=== PATIENT | male | born 1960 | race Caucasian/White ===

== ENCOUNTER 2017-10-27 14:14 | Inpatient (IN) | payer MEDICAID ==
[~2017-10-27] VITALS: Ht 170.2 cm; Wt 55.9 kg
[~2017-10-27 14:14] MED LIST: BUPR100T13; INSU100V9; METF500T4; SYRI1DIS90; [UNRECOGNIZED DRUG - REMARK]
[2017-10-27] MEDS ORDERED: HYDROcodone/acetaminophen 5mg/325mg tablet PO ONE (14:20)
[2017-10-27 15:08] LABS: BASOPHILS % (AUTO) 0.3 % (0-1); EOSINOPHILS # (AUTO) 0.2 X10'3 (0-0.9); EOSINOPHILS % (AUTO) 1.5 % (0-6); HEMATOCRIT 34.2 % (42.0-52.0); HEMOGLOBIN 11.9 g/dl (14.0-17.9); LYMPHOCYTES # (AUTO) 2.1 X10'3 (1.1-4.8); LYMPHOCYTES % (AUTO) 20.5 % (21-51); MEAN CORPUSCULAR HEMOGLOBIN 30.7 PG (27.0-31.0); MEAN CORPUSCULAR HGB CONC 34.6 % (33.0-36.5); MEAN CORPUSCULAR VOLUME 88.6 FL (78-98); MEAN PLATELET VOLUME 7.3 FL (7.4-10.4); MONOCYTES # (AUTO) 0.8 X10'3 (0-0.9); MONOCYTES % (AUTO) 8.2 % (2-12); NEUTROPHILS % (AUTO) 69.5 % (42-75); PLATELET COUNT 224 X10'3 (140-440); RED BLOOD COUNT 3.87 X10'6 (4.70-6.10); RED CELL DISTRIBUTION WIDTH 13.7 % (11.5-14.5)
[2017-10-27 15:24] LABS: ALANINE AMINOTRANSFERASE 28 U/L (12-78); ALBUMIN 3.9 G/DL (3.4-5.0); ALBUMIN/GLOBULIN RATIO 0.8 (1.1-1.5); ALKALINE PHOSPHATASE 68 IU/L (46-116); ANION GAP 17 (8-16); ASPARTATE AMINO TRANSFERASE 26 U/L (10-37); BLOOD UREA NITROGEN 38 MG/DL (7-18); BUN/CREATININE RATIO 20.4 (5.4-32.0); CALCIUM 9.2 MG/DL (8.5-10.1); CHLORIDE 94 MMOL/L (99-107); CREATININE 1.86 MG/DL (0.60-1.10); GLUCOSE 222 MG/DL (70-104); POTASSIUM 4.4 MMOL/L (3.5-5.1); SODIUM 134 MMOL/L (135-145); TOTAL CARBON DIOXIDE 23.5 MMOL/L (24-32); TOTAL PROTEIN 8.7 G/DL (6.4-8.2); eGFR 37 ML/MIN
[2017-10-27] MEDS ORDERED: bisacodyl 10mg suppository rectal RC PRN (16:00)
[2017-10-27] MEDS ORDERED: morphine sulfate 8 MG/ML SYRINGE IV PRN (16:00)
[2017-10-27] MEDS ORDERED: potassium Cl 20 mEq SR tablet PO PRN ×2 (16:00)
[2017-10-27] MEDS ORDERED: HYDROcodone/acetaminophen 5mg/325mg tablet PO PRN (16:00)
[2017-10-27] MEDS ORDERED: acetaminophen 325mg tablet PO PRN (16:00)
[2017-10-27] MEDS ORDERED: potassium Cl 40MEQ/NS 500ml 500 ML IV PRN ×2 (16:00)
[2017-10-27] MEDS ORDERED: magnesium Cl slow-release 64mg tablet PO PRN (16:00)
[2017-10-27] MEDS ORDERED: magnesium 2GM in 50ml NS 50 ML IV PRN (16:00)
[2017-10-27] MEDS ORDERED: magnesium 4gm in 100ml NS 100 ML IV PRN (16:00)
[2017-10-27] MEDS ORDERED: magnesium hydroxide 30ml (MOM) UD suspension PO PRN (16:00)
[2017-10-27] MEDS ORDERED: mag hydrox/Alum hydrox/simeth 30ml oral suspension PO PRN (16:00)
[2017-10-27] MEDS ORDERED: dextrose ORAL solution 15 GM/59 ML bottle PO PRN ×2 (16:05)
[2017-10-27] MEDS ORDERED: dextrose 50%-water 50ml dispensing syringe IV PRN ×2 (16:05)
[2017-10-27] MEDS ORDERED: glucagon, human recombinant 1mg kit SUBCUT PRN (16:05)
[2017-10-27] MEDS ORDERED: MESSAGE TO PHARMACY PO ONE (16:05)
[2017-10-27 16:33] LABS: HEMOGLOBIN A1C 6.2 % (4.5-6.2)
[2017-10-27] MEDS: normal saline 1000ml 1,000 ML IV SCH (19:41)
[2017-10-27] MEDS: docusate sod 100mg capsule PO SCH (19:42)
[2017-10-27 20:00] VITALS: BP_SYST 107; BP_SYST 146; BP_SYST 85; BP_DIAS 47; BP_DIAS 62; BP_DIAS 88
[2017-10-27] MEDS ORDERED: Insulin Detemir pen SQ SCH (21:00)
[2017-10-27] MEDS ORDERED: insulin glargine (Lantus) pen - multi-dose SQ SCH (21:17)
[2017-10-27] MEDS: HYDROcodone/acetaminophen 10/325mg tab PO PRN (21:31)
[2017-10-27] MEDS: insulin glargine (Lantus) pen - multi-dose SQ SCH (21:36)
[2017-10-27 22:00] VITALS: BP 146/88
[2017-10-28] MEDS: normal saline 1000ml 1,000 ML IV SCH ×2 (02:00→05:12)
[2017-10-28 04:33] LABS: CLARITY,URINE Clear (Clear); COLOR,URINE Yellow (Yellow); GLUCOSE, URINE 250 mg/dl (Neg); KETONES,URINE Trace mg/dl (Neg); LEUKOCYTE ESTERASE ,URINE Negative (Neg); NITRITES, URINE Negative (Neg); OCCULT BLOOD,URINE Negative (Neg); PROTEIN,URINE 30 mg/dl (Neg)
[2017-10-28 05:01] LABS: UA COLLECTION TYPE NON-SPECIFIED
[2017-10-28 05:03] LABS: BACTERIA,URINE NONE SEEN /HPF (Neg); HYALINE CASTS 0-3 /LPF (NEGATIVE); MUCUS STRANDS NONE SEEN /LPF (Neg); RBC,URINE NONE SEEN /HPF (0-2); SQUAMOUS EPITHELIAL CELL,UR FEW /LPF (FEW); WBC,URINE NONE SEEN /HPF (0-4)
[2017-10-28 06:07] LABS: BASOPHILS % (AUTO) 0.3 % (0-1); EOSINOPHILS # (AUTO) 0.2 X10'3 (0-0.9); EOSINOPHILS % (AUTO) 2.7 % (0-6); HEMATOCRIT 30.2 % (42.0-52.0); HEMOGLOBIN 10.5 g/dl (14.0-17.9); LYMPHOCYTES # (AUTO) 2.9 X10'3 (1.1-4.8); LYMPHOCYTES % (AUTO) 42.3 % (21-51); MEAN CORPUSCULAR HEMOGLOBIN 30.7 PG (27.0-31.0); MEAN CORPUSCULAR HGB CONC 34.9 % (33.0-36.5); MEAN CORPUSCULAR VOLUME 88.1 FL (78-98); MEAN PLATELET VOLUME 7.2 FL (7.4-10.4); MONOCYTES # (AUTO) 0.6 X10'3 (0-0.9); MONOCYTES % (AUTO) 8.8 % (2-12); NEUTROPHILS # (AUTO) 3.1 X10'3 (1.8-7.7); NEUTROPHILS % (AUTO) 45.9 % (42-75); PLATELET COUNT 148 X10'3 (140-440); RED BLOOD COUNT 3.43 X10'6 (4.70-6.10); WHITE BLOOD COUNT 6.8 X10'3 (4.5-11.0)
[2017-10-28 06:17] LABS: ALBUMIN 3.2 G/DL (3.4-5.0); ANION GAP 9 (8-16); BLOOD UREA NITROGEN 36 MG/DL (7-18); CALCIUM 8.4 MG/DL (8.5-10.1); CHLORIDE 100 MMOL/L (99-107); CREATININE 1.24 MG/DL (0.60-1.10); GLUCOSE 117 MG/DL (70-104); MAGNESIUM 1.5 MG/DL (1.5-2.4); POTASSIUM 3.8 MMOL/L (3.5-5.1); SODIUM 136 MMOL/L (135-145); TOTAL CARBON DIOXIDE 26.9 MMOL/L (24-32); eGFR 60 ML/MIN
[2017-10-28] MEDS ORDERED: METF500T7 PO ×2 (07:44→12:53)
[2017-10-28] MEDS ORDERED: GABA-530 PO (07:44)
[2017-10-28] MEDS ORDERED: ALBU18HF2 INH (07:44)
[2017-10-28 08:00] VITALS: BP_SYST 100; BP_SYST 105; BP_SYST 134; BP_DIAS 64; BP_DIAS 66; BP_DIAS 72
[2017-10-28] MEDS: docusate sod 100mg capsule PO SCH ×2 (08:00→20:34)
[2017-10-28] MEDS: K and/or MAG REPLACEMENT MC SCH (08:00)
[2017-10-28] MEDS: HYDROcodone/acetaminophen 10/325mg tab PO PRN ×2 (08:01→16:04)
[2017-10-28] MEDS: nicotine 21mg patch - 24 hr TD SCH (08:05)
[2017-10-28 10:00] VITALS: BP 117/68
[2017-10-28] MEDS: insulin Lispro (HumaLOG) vial - multi-dose SQ SCH ×2 (16:52→19:03)
[2017-10-28 18:00] VITALS: BP 140/85
[2017-10-28] MEDS: morphine sulfate 8 MG/ML SYRINGE IV PRN (19:09)
[2017-10-28 20:00] VITALS: BP_SYST 140; BP_SYST 144; BP_SYST 88; BP_DIAS 56; BP_DIAS 83; BP_DIAS 84
[2017-10-28] MEDS: gabapentin 100mg capsule PO SCH (20:34)
[2017-10-28] MEDS: insulin glargine (Lantus) pen - multi-dose SQ SCH (21:00)
[2017-10-28 22:00] VITALS: BP 144/84
[2017-10-29] VITALS (18 sets, daily range): BP systolic 67–161; BP diastolic 42–89
[2017-10-29] MEDS: HYDROcodone/acetaminophen 10/325mg tab PO PRN ×3 (06:00→21:10)
[2017-10-29 06:43] LABS: BASOPHILS % (AUTO) 0.4 % (0-1); EOSINOPHILS # (AUTO) 0.2 X10'3 (0-0.9); EOSINOPHILS % (AUTO) 3.2 % (0-6); HEMATOCRIT 30.9 % (42.0-52.0); HEMOGLOBIN 10.6 g/dl (14.0-17.9); LYMPHOCYTES # (AUTO) 2.2 X10'3 (1.1-4.8); LYMPHOCYTES % (AUTO) 33.6 % (21-51); MEAN CORPUSCULAR HEMOGLOBIN 30.2 PG (27.0-31.0); MEAN CORPUSCULAR HGB CONC 34.4 % (33.0-36.5); MEAN CORPUSCULAR VOLUME 87.8 FL (78-98); MEAN PLATELET VOLUME 6.7 FL (7.4-10.4); MONOCYTES # (AUTO) 0.6 X10'3 (0-0.9); MONOCYTES % (AUTO) 9.2 % (2-12); NEUTROPHILS # (AUTO) 3.5 X10'3 (1.8-7.7); NEUTROPHILS % (AUTO) 53.6 % (42-75); PLATELET COUNT 169 X10'3 (140-440); RED BLOOD COUNT 3.52 X10'6 (4.70-6.10); RED CELL DISTRIBUTION WIDTH 13.4 % (11.5-14.5); WHITE BLOOD COUNT 6.6 X10'3 (4.5-11.0)
[2017-10-29] MEDS: gabapentin 100mg capsule PO SCH ×3 (07:00→21:11)
[2017-10-29 07:01] LABS: ALBUMIN 3.2 G/DL (3.4-5.0); ANION GAP 7 (8-16); BLOOD UREA NITROGEN 26 MG/DL (7-18); BUN/CREATININE RATIO 24.8 (5.4-32.0); CALCIUM 8.9 MG/DL (8.5-10.1); CHLORIDE 99 MMOL/L (99-107); CREATININE 1.05 MG/DL (0.60-1.10); GLUCOSE 198 MG/DL (70-104); MAGNESIUM 1.5 MG/DL (1.5-2.4); POTASSIUM 3.8 MMOL/L (3.5-5.1); SODIUM 135 MMOL/L (135-145); TOTAL CARBON DIOXIDE 28.8 MMOL/L (24-32); eGFR 72 ML/MIN
[2017-10-29] MEDS: nicotine 21mg patch - 24 hr TD SCH (07:01)
[2017-10-29] MEDS: morphine sulfate 8 MG/ML SYRINGE IV PRN (07:02)
[2017-10-29] MEDS: insulin Lispro (HumaLOG) vial - multi-dose SQ SCH ×2 (07:47→19:45)
[2017-10-29] MEDS ORDERED: ceFAZolin 1GM/D5W- ADD-VANTAGE 50 ML IV SCH (08:00)
[2017-10-29] MEDS: K and/or MAG REPLACEMENT MC SCH (08:00)
[2017-10-29] MEDS ORDERED: cefazolin/dext.iso 2gm/50ml 50 ML IV ONE (08:00)
[2017-10-29] MEDS: docusate sod 100mg capsule PO SCH ×2 (10:31→21:10)
[2017-10-29] MEDS ORDERED: BUPIVAcaine/PF 2.5 mg/ml (0.25%) 30ml vial ONE (13:13)
[2017-10-29] MEDS ORDERED: BUPIVAcaine 0.5% inj/PF 30 ml vial ONE (13:13)
[2017-10-29] MEDS ORDERED: fentaNYL/PF 50MCG/1 ML 2ML syringe ONE ×2 (13:17→15:06)
[2017-10-29] MEDS ORDERED: midazolam 2 mg/2 ml injection ONE ×2 (13:17)
[2017-10-29] MEDS ORDERED: ePHEDrine 50MG/ML INJ. ONE (13:18)
[2017-10-29] MEDS ORDERED: sevoflurane 250ml liquid IH ONE (13:18)
[2017-10-29] MEDS ORDERED: LIDOcaine 1%/PF (10mg/ml) 5ml vial ONE (13:46)
[2017-10-29] MEDS ORDERED: propofol inj 20 ML IV ONE (13:46)
[2017-10-29] MEDS ORDERED: rocuronium 10mg/ml inj IV ONE (13:46)
[2017-10-29] MEDS ORDERED: dexamethasone sod phosphate 4mg/ml inj. ONE (13:47)
[2017-10-29] MEDS ORDERED: ringers solution, lacted 1,000 ML IV SCH (14:32)
[2017-10-29] MEDS ORDERED: morphine sulfate 8 MG/ML SYRINGE IV PRN ×2 (14:35)
[2017-10-29] MEDS ORDERED: proCHLORperazine 10 MG/2 ml inj IV PRN (14:35)
[2017-10-29] MEDS ORDERED: meperidine/PF 25mg/ml syringe IV PRN ×3 (14:35)
[2017-10-29] MEDS ORDERED: ondansetron/PF 4mg/2ml inj IV PRN ×2 (14:35→15:10)
[2017-10-29] MEDS ORDERED: neostigmine methylsulfate 1 MG/ML 10ml vial ONE (14:54)
[2017-10-29] MEDS ORDERED: glycopyrrolate 0.2mg/ml inj ONE (14:54)
[2017-10-29] MEDS ORDERED: ondansetron/PF 4mg/2ml inj ONE (14:55)
[2017-10-29] MEDS ORDERED: acetaminophen 325mg tablet PO PRN (15:10)
[2017-10-29] MEDS ORDERED: diphenhydrAMINE 25mg capsule PO PRN ×2 (15:10)
[2017-10-29] MEDS ORDERED: bisacodyl 10mg suppository rectal RC PRN (15:10)
[2017-10-29] MEDS ORDERED: magnesium hydroxide 30ml (MOM) UD suspension PO PRN (15:10)
[2017-10-29] MEDS ORDERED: insulin regular, human 10 units/0.1 ml syringe IV ONE (15:25)
[2017-10-29] MEDS: CEFAZOLIN SODIUM/NORMAL SALINE 100 ML IV SCH (17:29)
[2017-10-29] MEDS: sennosides 8.6mg tablet PO SCH (21:11)
[2017-10-29] MEDS: insulin glargine (Lantus) pen - multi-dose SQ SCH (21:14)
[2017-10-30] VITALS (9 sets, daily range): BP systolic 67–141; BP diastolic 46–83
[2017-10-30] MEDS: CEFAZOLIN SODIUM/NORMAL SALINE 100 ML IV SCH (00:25)
[2017-10-30] MEDS: morphine sulfate 8 MG/ML SYRINGE IV PRN ×3 (02:04→11:23)
[2017-10-30] MEDS: HYDROcodone/acetaminophen 10/325mg tab PO PRN ×4 (04:45→19:47)
[2017-10-30 06:44] LABS: BASOPHILS % (AUTO) 0.1 % (0-1); EOSINOPHILS # (AUTO) 0.1 X10'3 (0-0.9); EOSINOPHILS % (AUTO) 2.3 % (0-6); HEMATOCRIT 27.2 % (42.0-52.0); HEMOGLOBIN 9.4 g/dl (14.0-17.9); LYMPHOCYTES # (AUTO) 1.6 X10'3 (1.1-4.8); LYMPHOCYTES % (AUTO) 30.6 % (21-51); MEAN CORPUSCULAR HEMOGLOBIN 30.4 PG (27.0-31.0); MEAN CORPUSCULAR HGB CONC 34.4 % (33.0-36.5); MEAN CORPUSCULAR VOLUME 88.4 FL (78-98); MEAN PLATELET VOLUME 6.5 FL (7.4-10.4); MONOCYTES # (AUTO) 0.5 X10'3 (0-0.9); MONOCYTES % (AUTO) 9.8 % (2-12); NEUTROPHILS % (AUTO) 57.2 % (42-75); PLATELET COUNT 167 X10'3 (140-440); RED BLOOD COUNT 3.08 X10'6 (4.70-6.10); RED CELL DISTRIBUTION WIDTH 13.5 % (11.5-14.5); WHITE BLOOD COUNT 5.2 X10'3 (4.5-11.0)
[2017-10-30 06:49] LABS: ALBUMIN 2.8 G/DL (3.4-5.0); ANION GAP 6 (8-16); BLOOD UREA NITROGEN 19 MG/DL (7-18); BUN/CREATININE RATIO 17.8 (5.4-32.0); CALCIUM 8.2 MG/DL (8.5-10.1); CHLORIDE 99 MMOL/L (99-107); CREATININE 1.07 MG/DL (0.60-1.10); GLUCOSE 173 MG/DL (70-104); MAGNESIUM 1.2 MG/DL (1.5-2.4); SODIUM 138 MMOL/L (135-145); TOTAL CARBON DIOXIDE 32.7 MMOL/L (24-32); eGFR 71 ML/MIN
[2017-10-30] MEDS: K and/or MAG REPLACEMENT MC SCH (07:29)
[2017-10-30] MEDS: nicotine 21mg patch - 24 hr TD SCH (07:29)
[2017-10-30] MEDS: docusate sod 100mg capsule PO SCH ×2 (07:29→19:47)
[2017-10-30] MEDS: gabapentin 100mg capsule PO SCH ×2 (07:29→12:38)
[2017-10-30] MEDS: enoxaparin 40mg/0.4ml syringe SQ SCH (07:30)
[2017-10-30] MEDS: magnesium Cl slow-release 64mg tablet PO PRN ×2 (07:30→19:45)
[2017-10-30] MEDS ORDERED: magnesium Cl slow-release 64mg tablet PO SCH (08:00)
[2017-10-30] MEDS: insulin Lispro (HumaLOG) vial - multi-dose SQ SCH ×2 (08:31→14:00)
[2017-10-30] MEDS: midodrine tablet 2.5 MG TABLET PO SCH (17:26)
[2017-10-30] MEDS: sennosides 8.6mg tablet PO SCH (20:46)
[2017-10-30] MEDS: gabapentin 300mg capsule PO SCH (20:52)
[2017-10-30] MEDS: insulin glargine (Lantus) pen - multi-dose SQ SCH (20:56)
[2017-10-31] MEDS: midodrine tablet 2.5 MG TABLET PO SCH ×3 (00:11→16:25)
[2017-10-31] MEDS: HYDROcodone/acetaminophen 10/325mg tab PO PRN ×5 (00:19→21:24)
[2017-10-31 05:00] VITALS: BP 112/67
[2017-10-31 06:07] LABS: BASOPHILS % (AUTO) 0.6 % (0-1); EOSINOPHILS # (AUTO) 0.2 X10'3 (0-0.9); EOSINOPHILS % (AUTO) 2.8 % (0-6); HEMATOCRIT 25.5 % (42.0-52.0); HEMOGLOBIN 8.7 g/dl (14.0-17.9); LYMPHOCYTES # (AUTO) 1.4 X10'3 (1.1-4.8); LYMPHOCYTES % (AUTO) 22.1 % (21-51); MEAN CORPUSCULAR HEMOGLOBIN 30.4 PG (27.0-31.0); MEAN CORPUSCULAR HGB CONC 34.3 % (33.0-36.5); MEAN CORPUSCULAR VOLUME 88.7 FL (78-98); MEAN PLATELET VOLUME 6.5 FL (7.4-10.4); MONOCYTES # (AUTO) 0.6 X10'3 (0-0.9); MONOCYTES % (AUTO) 9.2 % (2-12); NEUTROPHILS # (AUTO) 4.2 X10'3 (1.8-7.7); NEUTROPHILS % (AUTO) 65.3 % (42-75); PLATELET COUNT 157 X10'3 (140-440); RED BLOOD COUNT 2.87 X10'6 (4.70-6.10); RED CELL DISTRIBUTION WIDTH 13.7 % (11.5-14.5); WHITE BLOOD COUNT 6.4 X10'3 (4.5-11.0)
[2017-10-31 06:25] LABS: ALBUMIN 2.6 G/DL (3.4-5.0); ANION GAP 7 (8-16); BLOOD UREA NITROGEN 17 MG/DL (7-18); BUN/CREATININE RATIO 17.2 (5.4-32.0); CALCIUM 8.1 MG/DL (8.5-10.1); CHLORIDE 99 MMOL/L (99-107); CREATININE 0.99 MG/DL (0.60-1.10); GLUCOSE 123 MG/DL (70-104); MAGNESIUM 1.1 MG/DL (1.5-2.4); POTASSIUM 3.7 MMOL/L (3.5-5.1); SODIUM 135 MMOL/L (135-145); TOTAL CARBON DIOXIDE 29.3 MMOL/L (24-32); eGFR 77 ML/MIN
[2017-10-31] MEDS: nicotine 21mg patch - 24 hr TD SCH (07:51)
[2017-10-31] MEDS: gabapentin 300mg capsule PO SCH ×4 (07:51→20:07)
[2017-10-31] MEDS: K and/or MAG REPLACEMENT MC SCH (07:51)
[2017-10-31] MEDS: docusate sod 100mg capsule PO SCH ×2 (07:51→20:00)
[2017-10-31] MEDS: enoxaparin 40mg/0.4ml syringe SQ SCH (07:52)
[2017-10-31 08:00] VITALS: BP_SYST 100; BP_SYST 108; BP_SYST 59; BP_DIAS 34; BP_DIAS 41; BP_DIAS 66
[2017-10-31] MEDS: magnesium Cl slow-release 64mg tablet PO PRN ×2 (08:18→19:53)
[2017-10-31] MEDS: insulin Lispro (HumaLOG) vial - multi-dose SQ SCH (09:27)
[2017-10-31] MEDS: ondansetron/PF 4mg/2ml inj IV PRN ×2 (12:29→20:05)
[2017-10-31] MEDS: fludrocortisone acetate 0.1mg tablet PO SCH (17:25)
[2017-10-31 18:00] VITALS: BP 155/88
[2017-10-31] MEDS: Potassium Cl inj 20 MEQ in normal saline 1000ml 990 ML IV SCH (19:14)
[2017-10-31] MEDS: sennosides 8.6mg tablet PO SCH (20:07)
[2017-10-31] MEDS: insulin glargine (Lantus) pen - multi-dose SQ SCH (21:28)
[2017-10-31] MEDS ORDERED: magnesium 4gm in 100ml NS 100 ML IV PRN (21:40)
[2017-10-31] MEDS ORDERED: potassium Cl 40MEQ/NS 500ml 500 ML IV PRN ×2 (21:40)
[2017-10-31] MEDS ORDERED: magnesium Cl slow-release 64mg tablet PO PRN (21:40)
[2017-10-31] MEDS ORDERED: magnesium 2GM in 50ml NS 50 ML IV PRN (21:40)
[2017-10-31] MEDS ORDERED: potassium Cl 20 mEq SR tablet PO PRN ×2 (21:40)
[2017-10-31 22:00] VITALS: BP 135/71
[2017-11-01] MEDS: midodrine tablet 2.5 MG TABLET PO SCH ×3 (01:22→15:44)
[2017-11-01] MEDS: HYDROcodone/acetaminophen 10/325mg tab PO PRN ×4 (05:05→17:04)
[2017-11-01 06:00] VITALS: BP_SYST 139; BP_SYST 79; BP_SYST 87; BP_DIAS 47; BP_DIAS 60; BP_DIAS 73
[2017-11-01 06:15] LABS: BASOPHILS % (AUTO) 0.3 % (0-1); EOSINOPHILS # (AUTO) 0.2 X10'3 (0-0.9); EOSINOPHILS % (AUTO) 2.6 % (0-6); HEMATOCRIT 26.6 % (42.0-52.0); HEMOGLOBIN 9.1 g/dl (14.0-17.9); LYMPHOCYTES # (AUTO) 1.8 X10'3 (1.1-4.8); LYMPHOCYTES % (AUTO) 25.6 % (21-51); MEAN CORPUSCULAR HEMOGLOBIN 30.4 PG (27.0-31.0); MEAN CORPUSCULAR HGB CONC 34.1 % (33.0-36.5); MEAN CORPUSCULAR VOLUME 89.3 FL (78-98); MEAN PLATELET VOLUME 7.1 FL (7.4-10.4); MONOCYTES # (AUTO) 0.6 X10'3 (0-0.9); MONOCYTES % (AUTO) 7.8 % (2-12); NEUTROPHILS # (AUTO) 4.6 X10'3 (1.8-7.7); NEUTROPHILS % (AUTO) 63.7 % (42-75); PLATELET COUNT 183 X10'3 (140-440); RED BLOOD COUNT 2.98 X10'6 (4.70-6.10); RED CELL DISTRIBUTION WIDTH 13.3 % (11.5-14.5); WHITE BLOOD COUNT 7.2 X10'3 (4.5-11.0)
[2017-11-01 06:47] LABS: ALBUMIN 2.5 G/DL (3.4-5.0); ANION GAP 7 (8-16); BLOOD UREA NITROGEN 15 MG/DL (7-18); BUN/CREATININE RATIO 17.4 (5.4-32.0); CALCIUM 7.9 MG/DL (8.5-10.1); CHLORIDE 101 MMOL/L (99-107); CREATININE 0.86 MG/DL (0.60-1.10); GLUCOSE 136 MG/DL (70-104); MAGNESIUM 2.7 MG/DL (1.5-2.4); POTASSIUM 4.1 MMOL/L (3.5-5.1); SODIUM 137 MMOL/L (135-145); TOTAL CARBON DIOXIDE 29.2 MMOL/L (24-32); eGFR > 90 ML/MIN
[2017-11-01] MEDS: K and/or MAG REPLACEMENT MC SCH (07:10)
[2017-11-01] MEDS: Potassium Cl inj 20 MEQ in normal saline 1000ml 990 ML IV SCH ×3 (07:11→21:02)
[2017-11-01] MEDS: insulin Lispro (HumaLOG) vial - multi-dose SQ SCH ×2 (08:59→14:30)
[2017-11-01] MEDS: nicotine 21mg patch - 24 hr TD SCH (09:02)
[2017-11-01] MEDS: gabapentin 300mg capsule PO SCH ×3 (09:05→21:01)
[2017-11-01] MEDS: fludrocortisone acetate 0.1mg tablet PO SCH (09:05)
[2017-11-01] MEDS: docusate sod 100mg capsule PO SCH (09:05)
[2017-11-01] MEDS: enoxaparin 40mg/0.4ml syringe SQ SCH (09:06)
[2017-11-01 09:19] LABS: C DIFF ANTIGEN POSITIVE (NEGATIVE); C DIFF SPECIMEN=DIARRHEA? ACCEPTABLE
[2017-11-01 09:20] LABS: C DIFFICILE TOXINS A&B POSITIVE (Neg)
[2017-11-01 10:00] VITALS: BP_SYST 121; BP_SYST 85; BP_SYST 86; BP_DIAS 43; BP_DIAS 52; BP_DIAS 79
[2017-11-01] MEDS ORDERED: fludrocortisone acetate 0.1mg tablet PO ONE (14:10)
[2017-11-01] MEDS: metroNIDAZOLE 500mg tablet PO SCH ×2 (14:32→20:49)
[2017-11-01 18:00] VITALS: BP 136/75
[2017-11-01] MEDS: insulin glargine (Lantus) pen - multi-dose SQ SCH (20:47)
[2017-11-01] MEDS: sennosides 8.6mg tablet PO SCH (20:49)
[2017-11-02] VITALS (7 sets, daily range): BP systolic 73–147; BP diastolic 39–81
[2017-11-02] MEDS: midodrine tablet 2.5 MG TABLET PO SCH ×3 (00:31→15:55)
[2017-11-02] MEDS: HYDROcodone/acetaminophen 10/325mg tab PO PRN ×4 (02:18→19:57)
[2017-11-02 06:55] LABS: ALBUMIN 2.4 G/DL (3.4-5.0); ANION GAP 5 (8-16); BLOOD UREA NITROGEN 14 MG/DL (7-18); BUN/CREATININE RATIO 15.7 (5.4-32.0); CHLORIDE 104 MMOL/L (99-107); CREATININE 0.89 MG/DL (0.60-1.10); GLUCOSE 179 MG/DL (70-104); MAGNESIUM 1.7 MG/DL (1.5-2.4); SODIUM 140 MMOL/L (135-145); TOTAL CARBON DIOXIDE 30.8 MMOL/L (24-32); eGFR 87 ML/MIN
[2017-11-02] MEDS: K and/or MAG REPLACEMENT MC SCH (08:00)
[2017-11-02] MEDS ORDERED: fludrocortisone acetate 0.1mg tablet PO SCH (08:30)
[2017-11-02] MEDS: insulin Lispro (HumaLOG) vial - multi-dose SQ SCH ×2 (09:53→13:57)
[2017-11-02] MEDS: metroNIDAZOLE 500mg tablet PO SCH ×3 (09:59→20:51)
[2017-11-02] MEDS: gabapentin 300mg capsule PO SCH ×2 (09:59→20:52)
[2017-11-02] MEDS: enoxaparin 40mg/0.4ml syringe SQ SCH (10:02)
[2017-11-02] MEDS: nicotine 21mg patch - 24 hr TD SCH (10:10)
[2017-11-02] MEDS ORDERED: fludrocortisone acetate 0.1mg tablet PO ONE (13:10)
[2017-11-02] MEDS: Potassium Cl inj 20 MEQ in normal saline 1000ml 990 ML IV SCH (20:52)
[2017-11-02] MEDS: sennosides 8.6mg tablet PO SCH (21:00)
[2017-11-02] MEDS: insulin glargine (Lantus) pen - multi-dose SQ SCH (21:07)
[2017-11-03 01:00] VITALS: BP 160/92
[2017-11-03] MEDS: midodrine tablet 2.5 MG TABLET PO SCH ×3 (01:00→17:04)
[2017-11-03] MEDS: HYDROcodone/acetaminophen 10/325mg tab PO PRN ×4 (02:54→21:34)
[2017-11-03 06:00] VITALS: BP 135/77
[2017-11-03 06:45] LABS: BASOPHILS % (AUTO) 0.4 % (0-1); EOSINOPHILS # (AUTO) 0.1 X10'3 (0-0.9); EOSINOPHILS % (AUTO) 3.3 % (0-6); HEMOGLOBIN 8.9 g/dl (14.0-17.9); LYMPHOCYTES # (AUTO) 1.3 X10'3 (1.1-4.8); LYMPHOCYTES % (AUTO) 31.6 % (21-51); MEAN CORPUSCULAR HEMOGLOBIN 29.9 PG (27.0-31.0); MEAN CORPUSCULAR VOLUME 87.9 FL (78-98); MONOCYTES # (AUTO) 0.3 X10'3 (0-0.9); MONOCYTES % (AUTO) 7.9 % (2-12); NEUTROPHILS # (AUTO) 2.4 X10'3 (1.8-7.7); NEUTROPHILS % (AUTO) 56.8 % (42-75); PLATELET COUNT 170 X10'3 (140-440); RED BLOOD COUNT 2.96 X10'6 (4.70-6.10); RED CELL DISTRIBUTION WIDTH 13.5 % (11.5-14.5); WHITE BLOOD COUNT 4.2 X10'3 (4.5-11.0)
[2017-11-03 06:57] LABS: ALBUMIN 2.3 G/DL (3.4-5.0); ANION GAP 5 (8-16); BLOOD UREA NITROGEN 12 MG/DL (7-18); BUN/CREATININE RATIO 15.2 (5.4-32.0); CHLORIDE 106 MMOL/L (99-107); CREATININE 0.79 MG/DL (0.60-1.10); GLUCOSE 202 MG/DL (70-104); MAGNESIUM 1.5 MG/DL (1.5-2.4); SODIUM 140 MMOL/L (135-145); TOTAL CARBON DIOXIDE 29.5 MMOL/L (24-32); eGFR > 90 ML/MIN
[2017-11-03] MEDS: Potassium Cl inj 20 MEQ in normal saline 1000ml 990 ML IV SCH ×2 (07:55→20:25)
[2017-11-03] MEDS: K and/or MAG REPLACEMENT MC SCH (08:00)
[2017-11-03] MEDS: gabapentin 300mg capsule PO SCH ×3 (08:44→21:34)
[2017-11-03] MEDS: metroNIDAZOLE 500mg tablet PO SCH ×3 (08:44→21:34)
[2017-11-03] MEDS: nicotine 21mg patch - 24 hr TD SCH (08:45)
[2017-11-03] MEDS: fludrocortisone acetate 0.1mg tablet PO SCH (08:45)
[2017-11-03] MEDS: enoxaparin 40mg/0.4ml syringe SQ SCH (08:46)
[2017-11-03] MEDS: insulin Lispro (HumaLOG) vial - multi-dose SQ SCH ×3 (09:05→20:05)
[2017-11-03 09:15] VITALS: BP_SYST 100; BP_SYST 139; BP_SYST 99; BP_DIAS 51; BP_DIAS 64; BP_DIAS 76
[2017-11-03 10:00] VITALS: BP 136/72
[2017-11-03] MEDS: lactobacillus rhamnosus 10,000 MMU CELLS/CAPSULE PO SCH (17:04)
[2017-11-03 19:00] VITALS: BP 161/81
[2017-11-03] MEDS: vancomycin 250MG/10ML UD oral solution 10ML BOTTLE PO SCH ×2 (20:00→20:02)
[2017-11-03] MEDS: sennosides 8.6mg tablet PO SCH (21:00)
[2017-11-03] MEDS: insulin glargine (Lantus) pen - multi-dose SQ SCH (21:37)
[2017-11-03 23:45] VITALS: BP 152/80
[2017-11-04] MEDS: Potassium Cl inj 20 MEQ in normal saline 1000ml 990 ML IV SCH ×2 (02:27→19:38)
[2017-11-04] MEDS: vancomycin 250MG/10ML UD oral solution 10ML BOTTLE PO SCH ×4 (02:27→19:37)
[2017-11-04 05:30] VITALS: BP_SYST 118; BP_SYST 144; BP_SYST 87; BP_DIAS 55; BP_DIAS 70; BP_DIAS 77
[2017-11-04 06:00] VITALS: BP 144/77
[2017-11-04 06:01] LABS: BASOPHILS % (AUTO) 0.4 % (0-1); EOSINOPHILS # (AUTO) 0.2 X10'3 (0-0.9); EOSINOPHILS % (AUTO) 3.1 % (0-6); HEMATOCRIT 25.7 % (42.0-52.0); HEMOGLOBIN 8.8 g/dl (14.0-17.9); LYMPHOCYTES # (AUTO) 2.5 X10'3 (1.1-4.8); LYMPHOCYTES % (AUTO) 48.3 % (21-51); MEAN CORPUSCULAR HEMOGLOBIN 30.3 PG (27.0-31.0); MEAN CORPUSCULAR HGB CONC 34.4 % (33.0-36.5); MEAN PLATELET VOLUME 6.7 FL (7.4-10.4); MONOCYTES # (AUTO) 0.4 X10'3 (0-0.9); MONOCYTES % (AUTO) 7.6 % (2-12); NEUTROPHILS # (AUTO) 2.1 X10'3 (1.8-7.7); NEUTROPHILS % (AUTO) 40.6 % (42-75); PLATELET COUNT 179 X10'3 (140-440); RED BLOOD COUNT 2.92 X10'6 (4.70-6.10); RED CELL DISTRIBUTION WIDTH 13.5 % (11.5-14.5); WHITE BLOOD COUNT 5.1 X10'3 (4.5-11.0)
[2017-11-04 06:29] LABS: ALBUMIN 2.3 G/DL (3.4-5.0); ANION GAP 6 (8-16); BLOOD UREA NITROGEN 11 MG/DL (7-18); BUN/CREATININE RATIO 14.1 (5.4-32.0); CALCIUM 7.9 MG/DL (8.5-10.1); CHLORIDE 106 MMOL/L (99-107); CREATININE 0.78 MG/DL (0.60-1.10); GLUCOSE 117 MG/DL (70-104); POTASSIUM 4.2 MMOL/L (3.5-5.1); SODIUM 141 MMOL/L (135-145); TOTAL CARBON DIOXIDE 28.6 MMOL/L (24-32); eGFR > 90 ML/MIN
[2017-11-04] MEDS: fludrocortisone acetate 0.1mg tablet PO SCH (07:59)
[2017-11-04] MEDS: metroNIDAZOLE 500mg tablet PO SCH ×3 (07:59→21:24)
[2017-11-04] MEDS: enoxaparin 40mg/0.4ml syringe SQ SCH (07:59)
[2017-11-04] MEDS: gabapentin 300mg capsule PO SCH ×3 (07:59→21:24)
[2017-11-04] MEDS: lactobacillus rhamnosus 10,000 MMU CELLS/CAPSULE PO SCH ×2 (08:00→19:38)
[2017-11-04] MEDS: midodrine tablet 2.5 MG TABLET PO SCH ×3 (08:00→16:00)
[2017-11-04] MEDS: nicotine 21mg patch - 24 hr TD SCH (08:00)
[2017-11-04] MEDS: K and/or MAG REPLACEMENT MC SCH (08:00)
[2017-11-04 10:00] VITALS: BP 132/62
[2017-11-04] MEDS: insulin Lispro (HumaLOG) vial - multi-dose SQ SCH ×3 (10:21→19:37)
[2017-11-04] MEDS: HYDROcodone/acetaminophen 10/325mg tab PO PRN ×2 (14:19→19:37)
[2017-11-04 16:49] VITALS: BP_SYST 103; BP_SYST 125; BP_SYST 151; BP_DIAS 56; BP_DIAS 64; BP_DIAS 79
[2017-11-04 18:00] VITALS: BP 157/79
[2017-11-04] MEDS: sennosides 8.6mg tablet PO SCH (21:24)
[2017-11-04] MEDS: insulin glargine (Lantus) pen - multi-dose SQ SCH (21:27)
[2017-11-04 22:00] VITALS: BP_SYST 119; BP_SYST 126; BP_SYST 137; BP_DIAS 72; BP_DIAS 76; BP_DIAS 88
[2017-11-05 00:30] VITALS: BP 145/83
[2017-11-05] MEDS: vancomycin 250MG/10ML UD oral solution 10ML BOTTLE PO SCH ×2 (01:54→07:57)
[2017-11-05 07:00] VITALS: BP 144/79
[2017-11-05 07:43] LABS: ALBUMIN 2.4 G/DL (3.4-5.0); ANION GAP 4 (8-16); BLOOD UREA NITROGEN 9 MG/DL (7-18); BUN/CREATININE RATIO 11.8 (5.4-32.0); CHLORIDE 105 MMOL/L (99-107); CREATININE 0.76 MG/DL (0.60-1.10); GLUCOSE 154 MG/DL (70-104); POTASSIUM 3.8 MMOL/L (3.5-5.1); SODIUM 142 MMOL/L (135-145); TOTAL CARBON DIOXIDE 32.9 MMOL/L (24-32); eGFR > 90 ML/MIN
[2017-11-05 07:50] LABS: BASOPHILS % (AUTO) 0.4 % (0-1); EOSINOPHILS # (AUTO) 0.1 X10'3 (0-0.9); EOSINOPHILS % (AUTO) 2.7 % (0-6); HEMATOCRIT 25.2 % (42.0-52.0); HEMOGLOBIN 8.6 g/dl (14.0-17.9); LYMPHOCYTES # (AUTO) 1.6 X10'3 (1.1-4.8); LYMPHOCYTES % (AUTO) 35.4 % (21-51); MEAN CORPUSCULAR HEMOGLOBIN 30.1 PG (27.0-31.0); MEAN CORPUSCULAR VOLUME 88.6 FL (78-98); MEAN PLATELET VOLUME 6.8 FL (7.4-10.4); MONOCYTES # (AUTO) 0.4 X10'3 (0-0.9); MONOCYTES % (AUTO) 8.1 % (2-12); NEUTROPHILS # (AUTO) 2.4 X10'3 (1.8-7.7); NEUTROPHILS % (AUTO) 53.4 % (42-75); PLATELET COUNT 163 X10'3 (140-440); RED BLOOD COUNT 2.84 X10'6 (4.70-6.10); RED CELL DISTRIBUTION WIDTH 14.1 % (11.5-14.5); WHITE BLOOD COUNT 4.5 X10'3 (4.5-11.0)
[2017-11-05] MEDS: gabapentin 300mg capsule PO SCH (07:57)
[2017-11-05] MEDS: enoxaparin 40mg/0.4ml syringe SQ SCH (07:58)
[2017-11-05] MEDS: lactobacillus rhamnosus 10,000 MMU CELLS/CAPSULE PO SCH (07:58)
[2017-11-05] MEDS: metroNIDAZOLE 500mg tablet PO SCH (07:58)
[2017-11-05] MEDS: nicotine 21mg patch - 24 hr TD SCH (07:59)
[2017-11-05] MEDS: midodrine tablet 2.5 MG TABLET PO SCH ×2 (08:00)
[2017-11-05] MEDS: fludrocortisone acetate 0.1mg tablet PO SCH (08:03)
[2017-11-05] MEDS: K and/or MAG REPLACEMENT MC SCH (08:04)
[2017-11-05] MEDS: insulin Lispro (HumaLOG) vial - multi-dose SQ SCH (09:49)
[2017-11-05] MEDS: Potassium Cl inj 20 MEQ in normal saline 1000ml 990 ML IV SCH (10:20)
[2017-11-05 11:26] VITALS: BP 147/79
[2017-11-05] MEDS ORDERED: NICO-687 TD (11:35)
[2017-11-05] MEDS ORDERED: INSU100V11 SQ (11:35)
[2017-11-05] MEDS ORDERED: VANC250C12 PO (11:35)
[2017-11-05] MEDS ORDERED: FERR324T4 PO (13:41)
== END 2017-11-05 12:20 | disposition home or self-care (01) | DRG 315 ==
LOC: ER 14:15 → ED HOLD 16:00 → EDBEDREQ 16:37 → ORTHO 4S 18:29
PROVIDERS: ADMIT Internal Medicine; ATTEND Internal Medicine
PROC: 0PSD04Z Reposition Left Humeral Head with Internal Fixation Device, Open Approach (ICD-10-PCS; principal; 2017-10-29 13:14)
DX: S42.212A Unspecified displaced fracture of surgical neck of left humerus, initial encounter for closed fracture (principal); N17.9 Acute kidney failure, unspecified; A04.72 Enterocolitis due to Clostridium difficile, not specified as recurrent; E11.43 Type 2 diabetes mellitus with diabetic autonomic (poly)neuropathy; E86.0 Dehydration; B19.20 Unspecified viral hepatitis C without hepatic coma; W18.39XA Other fall on same level, initial encounter; F17.210 Nicotine dependence, cigarettes, uncomplicated; Z60.2 Problems related to living alone; F12.90 Cannabis use, unspecified, uncomplicated; I95.1 Orthostatic hypotension; I10 Essential (primary) hypertension; Z79.4 Long term (current) use of insulin; Z87.11 Personal history of peptic ulcer disease; Z68.1 Body mass index [BMI] 19.9 or less, adult; Z88.8 Allergy status to other drugs, medicaments and biological substances; Y93.89 Activity, other specified; Y92.89 Other specified places as the place of occurrence of the external cause; Y99.8 Other external cause status; Z71.6 Tobacco abuse counseling; Z79.899 Other long term (current) drug therapy
CPT/HCPCS: 36415; 71010; 71100; 73030; 73060; 76001; 80048; 80053; 81001; 82948; 83036; 83735; 85025; 86885; 86900; 86901; 87070; 87324; 87449; 93005; 96374; 97110; 97116; 97161; 97530; 99285; A4565; A6255; A6402; A6449; A7000; C1713; J0690; J1100; J1650; J1815; J2001; J2250; J2270; J2405; J2704; J2710; J3010; J3370; J3475; J3480; J3490; J7030; J7120; L3650

== ENCOUNTER 2017-11-25 10:20 | Inpatient (IN) | payer MEDICAID ==
[~2017-11-25] VITALS: Ht 170.2 cm; Wt 63.6 kg
[~2017-11-25 10:20] MED LIST changes: +ALBU18HF2 INH; -BUPR100T13; +FERR324T4 PO; +GABA-530 PO; +INSU100V11 SQ; -METF500T4; +NICO-687 TD; +NICO-687 TOP; +VANC250C12 PO; -[UNRECOGNIZED DRUG - REMARK]
[2017-11-25] MEDS ORDERED: ipratropium/albuterol 3ml nebule NEB ONE (11:15)
[2017-11-25] MEDS ORDERED: vancomycin/NS 1 GM ADD-VANTAGE 250 ML IV ONE (11:15)
[2017-11-25] MEDS ORDERED: normal saline 1000ML IV soln IV ONE (11:15)
[2017-11-25] MEDS ORDERED: methylPREDNISolone sod succ 125mg/2ml vial IV ONE (11:15)
[2017-11-25 11:20] LABS: BASOPHILS % (AUTO) 0.3 % (0-1); EOSINOPHILS # (AUTO) 0.1 X10'3 (0-0.9); EOSINOPHILS % (AUTO) 2.1 % (0-6); HEMATOCRIT 33.2 % (42.0-52.0); LYMPHOCYTES # (AUTO) 1.2 X10'3 (1.1-4.8); LYMPHOCYTES % (AUTO) 24.5 % (21-51); MEAN CORPUSCULAR HEMOGLOBIN 30.1 PG (27.0-31.0); MEAN CORPUSCULAR HGB CONC 33.2 % (33.0-36.5); MEAN CORPUSCULAR VOLUME 90.8 FL (78-98); MEAN PLATELET VOLUME 7.4 FL (7.4-10.4); MONOCYTES # (AUTO) 0.3 X10'3 (0-0.9); MONOCYTES % (AUTO) 5.3 % (2-12); NEUTROPHILS # (AUTO) 3.2 X10'3 (1.8-7.7); NEUTROPHILS % (AUTO) 67.8 % (42-75); PLATELET COUNT 167 X10'3 (140-440); RED BLOOD COUNT 3.66 X10'6 (4.70-6.10); RED CELL DISTRIBUTION WIDTH 16.6 % (11.5-14.5); WHITE BLOOD COUNT 4.8 X10'3 (4.5-11.0)
[2017-11-25] MEDS ORDERED: LORazepam 2 mg/ml vial IV ONE ×2 (11:25→16:45)
[2017-11-25] MEDS ORDERED: HYDROmorphone inj. 0.5 MG/0.5 ML DISP.SYRIN IV ONE (11:25)
[2017-11-25 11:34] LABS: ALANINE AMINOTRANSFERASE 21 U/L (12-78); ALBUMIN 3.6 G/DL (3.4-5.0); ALBUMIN/GLOBULIN RATIO 0.9 (1.1-1.5); ALKALINE PHOSPHATASE 82 IU/L (46-116); ANION GAP 7 (8-16); ASPARTATE AMINO TRANSFERASE 18 U/L (10-37); BILIRUBIN,TOTAL 0.4 MG/DL (0.1-1.0); BLOOD UREA NITROGEN 9 MG/DL (7-18); CALCIUM 8.6 MG/DL (8.5-10.1); CHLORIDE 106 MMOL/L (99-107); GLUCOSE 158 MG/DL (70-104); SODIUM 143 MMOL/L (135-145); TOTAL CARBON DIOXIDE 29.9 MMOL/L (24-32); TOTAL PROTEIN 7.8 G/DL (6.4-8.2); eGFR 86 ML/MIN
[2017-11-25] MEDS ORDERED: potassium Cl oral solution 20 MEQ/15 ML PO ONE (11:50)
[2017-11-25] MEDS ORDERED: CefTRIAXone 2gm/NS 100ml IVPB 100 ML IV ONE (11:55)
[2017-11-25] MEDS ORDERED: azithromycin/NS 500mg/250ml 250 ML IV ONE (11:55)
[2017-11-25] MEDS ORDERED: normal saline 1000ml 1,000 ML IV SCH (12:59)
[2017-11-25] MEDS ORDERED: glucagon, human recombinant 1mg kit SUBCUT PRN (13:00)
[2017-11-25] MEDS ORDERED: dextrose 50%-water 50ml dispensing syringe IV PRN ×2 (13:00)
[2017-11-25] MEDS ORDERED: magnesium hydroxide 30ml (MOM) UD suspension PO PRN (13:00)
[2017-11-25] MEDS ORDERED: ondansetron/PF 4mg/2ml inj IV PRN (13:00)
[2017-11-25] MEDS ORDERED: mag hydrox/Alum hydrox/simeth 30ml oral suspension PO PRN (13:00)
[2017-11-25] MEDS ORDERED: dextrose ORAL solution 15 GM/59 ML bottle PO PRN ×2 (13:00)
[2017-11-25] MEDS ORDERED: MESSAGE TO PHARMACY PO ONE (13:00)
[2017-11-25] MEDS ORDERED: acetaminophen 325mg tablet PO PRN ×2 (13:00)
[2017-11-25] MEDS ORDERED: Potassium Cl inj 40 MEQ in normal saline 250ml IV soln 230 ML IV ONE (13:00)
[2017-11-25] MEDS ORDERED: potassium 10mEq/100ml NS w/LIDOcaine (10mg/bag) IV SCH (13:10)
[2017-11-25] MEDS: nicotine 21mg patch - 24 hr TD SCH (13:48)
[2017-11-25] MEDS: ipratropium/albuterol 3ml nebule NEB SCH ×4 (14:22→23:19)
[2017-11-25] MEDS ORDERED: potassium Cl 20 mEq SR tablet PO PRN ×2 (15:00)
[2017-11-25] MEDS ORDERED: potassium Cl 40MEQ/NS 500ml 500 ML IV PRN ×4 (15:00→21:40)
[2017-11-25] MEDS: methylPREDNISolone sod succ/PF 40mg inj. IV SCH ×2 (15:03→21:09)
[2017-11-25] MEDS ORDERED: ipratropium/albuterol 3ml nebule NEB SCH (16:00)
[2017-11-25] MEDS ORDERED: INSU100I31 SQ (16:25)
[2017-11-25] MEDS ORDERED: PSYL1PAC9 PO (16:29)
[2017-11-25] MEDS ORDERED: ACET-54 PO (16:41)
[2017-11-25] MEDS ORDERED: BUPR150T27 PO (16:41)
[2017-11-25] MEDS ORDERED: HYDR-3927 PO (16:41)
[2017-11-25] MEDS ORDERED: IBUP-1985 PO (16:41)
[2017-11-25] MEDS ORDERED: METF500T PO (16:41)
[2017-11-25] MEDS ORDERED: GLIM1TAB46 PO (16:41)
[2017-11-25] MEDS ORDERED: LANS15CA18 PO (16:41)
[2017-11-25 17:01] LABS: ABG BASE EXCESS -4.5 mmol/L (-2.0-3.0); ABG HCO3 21.5 mmol/L (22.0-26.0); ABG OXYGEN SATURATION 88.9 % (95-98); ABG PCO2 (T) 43.5 mmHg (35.0-48.0); ABG PH (T) 7.312 (7.350-7.450); ABG PO2 (T) 62.5 mmHg (83-108); ALLEN'S TEST Positive; FCOHb 2.3 % (0.5-1.5); FLOW 15 L/min; FMetHb 0.1 % (0.3-1.12); FO2Hb 86.8 % (94-100); TOTAL HEMOGLOBIN 11.5 G/dl (14.0-18.0)
[2017-11-25] MEDS: guaiFENesin ER 600mg tablet PO SCH ×2 (20:00→21:09)
[2017-11-25] MEDS: insulin glargine (Lantus) pen - multi-dose SQ SCH (21:41)
[2017-11-25 23:00] VITALS: BP 152/87
[2017-11-26] VITALS (9 sets, daily range): BP systolic 142–161; BP diastolic 81–101
[2017-11-26] MEDS: methylPREDNISolone sod succ/PF 40mg inj. IV SCH ×4 (02:24→20:28)
[2017-11-26] MEDS ORDERED: LORazepam 2 mg/ml vial ONE (02:42)
[2017-11-26] MEDS: ipratropium/albuterol 3ml nebule NEB SCH ×6 (03:06→23:03)
[2017-11-26] MEDS: guaiFENesin/codeine phos 10ml UD oral syrup PO PRN ×2 (03:09→19:50)
[2017-11-26 03:10] LABS: BASOPHILS % (AUTO) 0.1 % (0-1); EOSINOPHILS % (AUTO) 0.5 % (0-6); HEMATOCRIT 32.5 % (42.0-52.0); HEMOGLOBIN 10.8 g/dl (14.0-17.9); LYMPHOCYTES # (AUTO) 0.6 X10'3 (1.1-4.8); LYMPHOCYTES % (AUTO) 20.1 % (21-51); MEAN CORPUSCULAR HEMOGLOBIN 29.9 PG (27.0-31.0); MEAN CORPUSCULAR HGB CONC 33.1 % (33.0-36.5); MEAN CORPUSCULAR VOLUME 90.2 FL (78-98); MEAN PLATELET VOLUME 7.5 FL (7.4-10.4); MONOCYTES # (AUTO) 0.1 X10'3 (0-0.9); MONOCYTES % (AUTO) 2.5 % (2-12); NEUTROPHILS # (AUTO) 2.3 X10'3 (1.8-7.7); NEUTROPHILS % (AUTO) 76.8 % (42-75); PLATELET COUNT 149 X10'3 (140-440); RED BLOOD COUNT 3.61 X10'6 (4.70-6.10); RED CELL DISTRIBUTION WIDTH 16.4 % (11.5-14.5)
[2017-11-26 03:30] LABS: ALANINE AMINOTRANSFERASE 17 U/L (12-78); ALBUMIN 3.1 G/DL (3.4-5.0); ALBUMIN/GLOBULIN RATIO 0.8 (1.1-1.5); ALKALINE PHOSPHATASE 73 IU/L (46-116); ANION GAP 8 (8-16); ASPARTATE AMINO TRANSFERASE 16 U/L (10-37); BILIRUBIN,TOTAL 0.2 MG/DL (0.1-1.0); BLOOD UREA NITROGEN 9 MG/DL (7-18); CALCIUM 7.6 MG/DL (8.5-10.1); CHLORIDE 110 MMOL/L (99-107); CHOL/HDL RATIO 2.5 (0.00-4.99); CHOLESTEROL 106 MG/DL (0-200); GLUCOSE 203 MG/DL (70-104); HDL CHOLESTEROL 42 MG/DL (35-60); LDL CHOLESTEROL 52 MG/DL (50-100); POTASSIUM 4.4 MMOL/L (3.5-5.1); SODIUM 143 MMOL/L (135-145); TOTAL CARBON DIOXIDE 24.7 MMOL/L (24-32); TRIGLYCERIDES 49 MG/DL (20-135); eGFR 86 ML/MIN
[2017-11-26 06:35] LABS: ABG BASE EXCESS -2.5 mmol/L (-2.0-3.0); ABG HCO3 22.9 mmol/L (22.0-26.0); ABG OXYGEN SATURATION 97.6 % (95-98); ABG PCO2 (T) 41.5 mmHg (35.0-48.0); ABG PH (T) 7.359 (7.350-7.450); ABG PO2 (T) 105.8 mmHg (83-108); ALLEN'S TEST Positive; FCOHb 0.3 % (0.5-1.5); FMetHb 0.2 % (0.3-1.12); FO2Hb 97.1 % (94-100); RESPIRATORY RATE 8 b/min; RESPIRATORY RATE (OBSERVED) 23 b/min; TOTAL HEMOGLOBIN 11.5 G/dl (14.0-18.0)
[2017-11-26 06:47] LABS: NEUTROPHILS % (MANUAL) 84 % (42-75); TOTAL CELLS COUNTED 100
[2017-11-26 06:48] LABS: ANISOCYTOSIS 1+; LYMPHOCYTES % (MANUAL) 15 % (21-51); MONOCYTES % (MANUAL) 1 % (2-12); PLATELET ESTIMATE NORMAL; SMUDGE CELLS FEW
[2017-11-26] MEDS: cefTRIAXone 1g/NS 100ml IVPB 100 ML IV SCH (10:13)
[2017-11-26] MEDS: azithromycin/NS 500mg/250ml 250 ML IV SCH (10:14)
[2017-11-26] MEDS: nicotine 21mg patch - 24 hr TD SCH (10:17)
[2017-11-26] MEDS: guaiFENesin ER 600mg tablet PO SCH ×2 (10:18→20:28)
[2017-11-26] MEDS: insulin Lispro (HumaLOG) vial - multi-dose SQ SCH ×2 (10:31→15:13)
[2017-11-26] MEDS: LORazepam 1 MG tablet PO PRN (11:55)
[2017-11-26] MEDS ORDERED: ACETAMINOPHEN PO SCH (13:00)
[2017-11-26] MEDS: metroNIDAZOLE-Flagyl 500mg/NS 100 ML IV SCH (15:18)
[2017-11-26] MEDS: gabapentin 100mg capsule PO SCH ×2 (15:18→20:28)
[2017-11-26] MEDS: hydrOXYzine 25 MG tablet PO SCH (20:28)
[2017-11-26] MEDS: insulin glargine (Lantus) pen - multi-dose SQ SCH (21:51)
[2017-11-27] MEDS: metroNIDAZOLE-Flagyl 500mg/NS 100 ML IV SCH ×2 (00:16→07:50)
[2017-11-27] MEDS: methylPREDNISolone sod succ/PF 40mg inj. IV SCH ×4 (01:19→20:57)
[2017-11-27] MEDS: LORazepam 1 MG tablet PO PRN (02:49)
[2017-11-27 03:00] VITALS: BP 162/95
[2017-11-27] MEDS: ipratropium/albuterol 3ml nebule NEB SCH ×6 (03:22→23:11)
[2017-11-27] MEDS: guaiFENesin/codeine phos 10ml UD oral syrup PO PRN ×2 (03:39→20:57)
[2017-11-27 05:30] VITALS: BP 144/81
[2017-11-27 06:47] LABS: BASOPHILS % (AUTO) 0.1 % (0-1); EOSINOPHILS % (AUTO) 0 % (0-6); HEMATOCRIT 30.1 % (42.0-52.0); HEMOGLOBIN 10.2 g/dl (14.0-17.9); LYMPHOCYTES # (AUTO) 0.4 X10'3 (1.1-4.8); LYMPHOCYTES % (AUTO) 7.9 % (21-51); MEAN CORPUSCULAR HEMOGLOBIN 30.6 PG (27.0-31.0); MEAN CORPUSCULAR HGB CONC 33.9 % (33.0-36.5); MEAN CORPUSCULAR VOLUME 90.2 FL (78-98); MEAN PLATELET VOLUME 8.1 FL (7.4-10.4); MONOCYTES # (AUTO) 0.1 X10'3 (0-0.9); MONOCYTES % (AUTO) 2.1 % (2-12); NEUTROPHILS # (AUTO) 4.2 X10'3 (1.8-7.7); NEUTROPHILS % (AUTO) 89.9 % (42-75); PLATELET COUNT 123 X10'3 (140-440); RED BLOOD COUNT 3.33 X10'6 (4.70-6.10); WHITE BLOOD COUNT 4.7 X10'3 (4.5-11.0)
[2017-11-27 06:53] LABS: ALANINE AMINOTRANSFERASE 17 U/L (12-78); ALBUMIN 2.9 G/DL (3.4-5.0); ALBUMIN/GLOBULIN RATIO 0.8 (1.1-1.5); ALKALINE PHOSPHATASE 62 IU/L (46-116); ANION GAP 10 (8-16); ASPARTATE AMINO TRANSFERASE 17 U/L (10-37); BILIRUBIN,TOTAL 0.3 MG/DL (0.1-1.0); BLOOD UREA NITROGEN 18 MG/DL (7-18); CHLORIDE 108 MMOL/L (99-107); GLUCOSE 226 MG/DL (70-104); POTASSIUM 3.8 MMOL/L (3.5-5.1); SODIUM 145 MMOL/L (135-145); TOTAL CARBON DIOXIDE 27.5 MMOL/L (24-32); TOTAL PROTEIN 6.6 G/DL (6.4-8.2); eGFR 76 ML/MIN
[2017-11-27] MEDS: pantoprazole 40mg Tablet.DR PO SCH (07:39)
[2017-11-27] MEDS: buPROPion SR 150mg tablet PO SCH (07:39)
[2017-11-27] MEDS: guaiFENesin ER 600mg tablet PO SCH ×2 (07:39→20:57)
[2017-11-27] MEDS: hydrOXYzine 25 MG tablet PO SCH ×2 (07:39→20:57)
[2017-11-27] MEDS: LACTOBACILLUS RHAMNOSUS GG 15 billion unit sprinkle caps PO SCH (07:39)
[2017-11-27] MEDS: gabapentin 100mg capsule PO SCH ×3 (07:39→20:57)
[2017-11-27] MEDS: nicotine 21mg patch - 24 hr TD SCH (07:40)
[2017-11-27] MEDS: cefTRIAXone 1g/NS 100ml IVPB 100 ML IV SCH (07:50)
[2017-11-27] MEDS: azithromycin/NS 500mg/250ml 250 ML IV SCH (07:50)
[2017-11-27] MEDS: insulin Lispro (HumaLOG) vial - multi-dose SQ SCH ×2 (08:08→14:06)
[2017-11-27 11:00] VITALS: BP 145/72
[2017-11-27 15:00] VITALS: BP 152/90
[2017-11-27] MEDS: metroNIDAZOLE 500mg tablet PO SCH (17:19)
[2017-11-27 19:00] VITALS: BP 153/88
[2017-11-27] MEDS: insulin glargine (Lantus) pen - multi-dose SQ SCH (21:09)
[2017-11-27 23:00] VITALS: BP 148/81
[2017-11-28] VITALS (7 sets, daily range): BP systolic 125–170; BP diastolic 65–102
[2017-11-28] MEDS: metroNIDAZOLE 500mg tablet PO SCH ×3 (00:41→17:35)
[2017-11-28] MEDS: LORazepam 1 MG tablet PO PRN (00:41)
[2017-11-28] MEDS: guaiFENesin/codeine phos 10ml UD oral syrup PO PRN ×2 (00:42→21:03)
[2017-11-28] MEDS: methylPREDNISolone sod succ/PF 40mg inj. IV SCH ×4 (01:17→21:02)
[2017-11-28] MEDS ORDERED: lisinopril 10 MG tablet PO ONE (03:05)
[2017-11-28] MEDS ORDERED: lisinopril 20mg tablet PO ONE (03:10)
[2017-11-28] MEDS: ipratropium/albuterol 3ml nebule NEB SCH ×6 (03:37→23:49)
[2017-11-28 04:51] LABS: BASOPHILS % (AUTO) 0 % (0-1); EOSINOPHILS % (AUTO) 0.7 % (0-6); HEMATOCRIT 33.2 % (42.0-52.0); HEMOGLOBIN 10.8 g/dl (14.0-17.9); LYMPHOCYTES # (AUTO) 0.4 X10'3 (1.1-4.8); LYMPHOCYTES % (AUTO) 8.3 % (21-51); MEAN CORPUSCULAR HEMOGLOBIN 29.7 PG (27.0-31.0); MEAN CORPUSCULAR HGB CONC 32.7 % (33.0-36.5); MEAN CORPUSCULAR VOLUME 90.9 FL (78-98); MEAN PLATELET VOLUME 7.2 FL (7.4-10.4); MONOCYTES # (AUTO) 0.1 X10'3 (0-0.9); MONOCYTES % (AUTO) 2.7 % (2-12); NEUTROPHILS % (AUTO) 88.3 % (42-75); PLATELET COUNT 124 X10'3 (140-440); RED BLOOD COUNT 3.65 X10'6 (4.70-6.10); RED CELL DISTRIBUTION WIDTH 16.9 % (11.5-14.5); WHITE BLOOD COUNT 4.5 X10'3 (4.5-11.0)
[2017-11-28 05:07] LABS: ALANINE AMINOTRANSFERASE 27 U/L (12-78); ALBUMIN 2.9 G/DL (3.4-5.0); ALBUMIN/GLOBULIN RATIO 0.8 (1.1-1.5); ALKALINE PHOSPHATASE 57 IU/L (46-116); ANION GAP 8 (8-16); ASPARTATE AMINO TRANSFERASE 29 U/L (10-37); BILIRUBIN,TOTAL 0.3 MG/DL (0.1-1.0); BLOOD UREA NITROGEN 19 MG/DL (7-18); BUN/CREATININE RATIO 21.1 (5.4-32.0); CALCIUM 8.1 MG/DL (8.5-10.1); CHLORIDE 108 MMOL/L (99-107); GLUCOSE 291 MG/DL (70-104); POTASSIUM 4.1 MMOL/L (3.5-5.1); SODIUM 144 MMOL/L (135-145); TOTAL CARBON DIOXIDE 28.2 MMOL/L (24-32); TOTAL PROTEIN 6.7 G/DL (6.4-8.2); eGFR 86 ML/MIN
[2017-11-28] MEDS: insulin Lispro (HumaLOG) vial - multi-dose SQ SCH ×3 (08:34→18:31)
[2017-11-28] MEDS: cefTRIAXone 1g/NS 100ml IVPB 100 ML IV SCH (08:40)
[2017-11-28] MEDS: hydrOXYzine 25 MG tablet PO SCH ×2 (08:41→21:02)
[2017-11-28] MEDS: azithromycin 250mg tablet PO SCH (08:41)
[2017-11-28] MEDS: gabapentin 100mg capsule PO SCH ×3 (08:41→21:03)
[2017-11-28] MEDS: nicotine 21mg patch - 24 hr TD SCH (08:41)
[2017-11-28] MEDS: guaiFENesin ER 600mg tablet PO SCH ×2 (08:42→21:03)
[2017-11-28] MEDS: lisinopril 20mg tablet PO SCH (08:42)
[2017-11-28] MEDS: buPROPion SR 150mg tablet PO SCH (08:42)
[2017-11-28] MEDS: pantoprazole 40mg Tablet.DR PO SCH (08:42)
[2017-11-28] MEDS: LACTOBACILLUS RHAMNOSUS GG 15 billion unit sprinkle caps PO SCH (08:43)
[2017-11-28] MEDS: insulin glargine (Lantus) pen - multi-dose SQ SCH (21:18)
[2017-11-29] MEDS: metroNIDAZOLE 500mg tablet PO SCH ×3 (00:20→16:35)
[2017-11-29] MEDS: LORazepam 1 MG tablet PO PRN (00:20)
[2017-11-29] MEDS: methylPREDNISolone sod succ/PF 40mg inj. IV SCH ×4 (02:13→20:53)
[2017-11-29 03:00] VITALS: BP 139/78
[2017-11-29] MEDS: ipratropium/albuterol 3ml nebule NEB SCH ×6 (03:56→22:56)
[2017-11-29 05:55] LABS: BASOPHILS % (AUTO) 0.2 % (0-1); EOSINOPHILS % (AUTO) 1.1 % (0-6); HEMATOCRIT 35.3 % (42.0-52.0); HEMOGLOBIN 11.6 g/dl (14.0-17.9); LYMPHOCYTES # (AUTO) 0.6 X10'3 (1.1-4.8); MEAN CORPUSCULAR HEMOGLOBIN 29.6 PG (27.0-31.0); MEAN CORPUSCULAR HGB CONC 32.7 % (33.0-36.5); MEAN CORPUSCULAR VOLUME 90.7 FL (78-98); MEAN PLATELET VOLUME 7.6 FL (7.4-10.4); MONOCYTES # (AUTO) 0.1 X10'3 (0-0.9); MONOCYTES % (AUTO) 2.9 % (2-12); NEUTROPHILS # (AUTO) 3.6 X10'3 (1.8-7.7); NEUTROPHILS % (AUTO) 81.8 % (42-75); PLATELET COUNT 122 X10'3 (140-440); RED CELL DISTRIBUTION WIDTH 16.4 % (11.5-14.5); WHITE BLOOD COUNT 4.4 X10'3 (4.5-11.0)
[2017-11-29 06:00] VITALS: BP 140/50
[2017-11-29 06:18] LABS: ALANINE AMINOTRANSFERASE 19 U/L (12-78); ALBUMIN 2.9 G/DL (3.4-5.0); ALBUMIN/GLOBULIN RATIO 0.8 (1.1-1.5); ALKALINE PHOSPHATASE 58 IU/L (46-116); ANION GAP 6 (8-16); ASPARTATE AMINO TRANSFERASE 22 U/L (10-37); BILIRUBIN,TOTAL 0.3 MG/DL (0.1-1.0); BLOOD UREA NITROGEN 19 MG/DL (7-18); BUN/CREATININE RATIO 23.8 (5.4-32.0); CALCIUM 8.1 MG/DL (8.5-10.1); CHLORIDE 105 MMOL/L (99-107); GLUCOSE 160 MG/DL (70-104); POTASSIUM 4.1 MMOL/L (3.5-5.1); SODIUM 142 MMOL/L (135-145); TOTAL CARBON DIOXIDE 30.9 MMOL/L (24-32); TOTAL PROTEIN 6.4 G/DL (6.4-8.2); eGFR > 90 ML/MIN
[2017-11-29] MEDS: lisinopril 20mg tablet PO SCH (07:38)
[2017-11-29] MEDS: azithromycin 250mg tablet PO SCH (07:38)
[2017-11-29] MEDS: hydrOXYzine 25 MG tablet PO SCH ×2 (07:38→20:55)
[2017-11-29] MEDS: buPROPion SR 150mg tablet PO SCH (07:38)
[2017-11-29] MEDS: pantoprazole 40mg Tablet.DR PO SCH (07:38)
[2017-11-29] MEDS: LACTOBACILLUS RHAMNOSUS GG 15 billion unit sprinkle caps PO SCH (07:38)
[2017-11-29] MEDS: guaiFENesin ER 600mg tablet PO SCH ×2 (07:38→20:54)
[2017-11-29] MEDS: gabapentin 100mg capsule PO SCH ×3 (07:38→20:53)
[2017-11-29] MEDS: nicotine 21mg patch - 24 hr TD SCH (07:49)
[2017-11-29] MEDS: cefTRIAXone 1g/NS 100ml IVPB 100 ML IV SCH (07:49)
[2017-11-29] MEDS: insulin Lispro (HumaLOG) vial - multi-dose SQ SCH ×2 (09:07→13:46)
[2017-11-29 11:00] VITALS: BP 151/84
[2017-11-29 15:00] VITALS: BP 145/89
[2017-11-29 19:00] VITALS: BP 136/67
[2017-11-29] MEDS: insulin glargine (Lantus) pen - multi-dose SQ SCH (21:10)
[2017-11-29 23:00] VITALS: BP 142/76
[2017-11-30] MEDS: metroNIDAZOLE 500mg tablet PO SCH ×3 (00:16→18:08)
[2017-11-30] MEDS: methylPREDNISolone sod succ/PF 40mg inj. IV SCH ×4 (01:54→20:29)
[2017-11-30 03:00] VITALS: BP 136/67
[2017-11-30] MEDS: ipratropium/albuterol 3ml nebule NEB SCH ×6 (03:17→22:56)
[2017-11-30] MEDS: HYDROcodone/acetaminophen 5mg/325mg tablet PO PRN (05:48)
[2017-11-30 05:58] LABS: BASOPHILS % (AUTO) 0.2 % (0-1); EOSINOPHILS # (AUTO) 0.1 X10'3 (0-0.9); HEMOGLOBIN 12.3 g/dl (14.0-17.9); LYMPHOCYTES % (AUTO) 14.7 % (21-51); MEAN CORPUSCULAR HEMOGLOBIN 29.8 PG (27.0-31.0); MEAN CORPUSCULAR HGB CONC 33.3 % (33.0-36.5); MEAN CORPUSCULAR VOLUME 89.6 FL (78-98); MEAN PLATELET VOLUME 7.4 FL (7.4-10.4); MONOCYTES # (AUTO) 0.4 X10'3 (0-0.9); MONOCYTES % (AUTO) 5.2 % (2-12); NEUTROPHILS # (AUTO) 5.4 X10'3 (1.8-7.7); NEUTROPHILS % (AUTO) 78.9 % (42-75); PLATELET COUNT 134 X10'3 (140-440); RED BLOOD COUNT 4.13 X10'6 (4.70-6.10); RED CELL DISTRIBUTION WIDTH 15.8 % (11.5-14.5); WHITE BLOOD COUNT 6.9 X10'3 (4.5-11.0)
[2017-11-30 06:29] LABS: ALANINE AMINOTRANSFERASE 34 U/L (12-78); ALBUMIN/GLOBULIN RATIO 0.9 (1.1-1.5); ALKALINE PHOSPHATASE 59 IU/L (46-116); ANION GAP 6 (8-16); ASPARTATE AMINO TRANSFERASE 36 U/L (10-37); BILIRUBIN,TOTAL 0.3 MG/DL (0.1-1.0); BLOOD UREA NITROGEN 17 MG/DL (7-18); BUN/CREATININE RATIO 18.9 (5.4-32.0); CALCIUM 8.2 MG/DL (8.5-10.1); CHLORIDE 104 MMOL/L (99-107); GLUCOSE 208 MG/DL (70-104); POTASSIUM 4.2 MMOL/L (3.5-5.1); SODIUM 143 MMOL/L (135-145); TOTAL CARBON DIOXIDE 33.4 MMOL/L (24-32); TOTAL PROTEIN 6.5 G/DL (6.4-8.2); eGFR 86 ML/MIN
[2017-11-30 06:35] VITALS: BP 154/67
[2017-11-30] MEDS: LACTOBACILLUS RHAMNOSUS GG 15 billion unit sprinkle caps PO SCH (07:30)
[2017-11-30] MEDS: pantoprazole 40mg Tablet.DR PO SCH (08:00)
[2017-11-30] MEDS: buPROPion SR 150mg tablet PO SCH (09:04)
[2017-11-30] MEDS: azithromycin 250mg tablet PO SCH (09:04)
[2017-11-30] MEDS: gabapentin 100mg capsule PO SCH ×3 (09:04→20:30)
[2017-11-30] MEDS: hydrOXYzine 25 MG tablet PO SCH ×2 (09:04→20:29)
[2017-11-30] MEDS: cefTRIAXone 1g/NS 100ml IVPB 100 ML IV SCH (09:05)
[2017-11-30] MEDS: guaiFENesin ER 600mg tablet PO SCH ×2 (09:05→20:29)
[2017-11-30] MEDS: insulin Lispro (HumaLOG) vial - multi-dose SQ SCH ×3 (09:10→21:38)
[2017-11-30] MEDS: nicotine 21mg patch - 24 hr TD SCH (09:16)
[2017-11-30] MEDS: lisinopril 20mg tablet PO SCH (09:22)
[2017-11-30 11:00] VITALS: BP 120/68
[2017-11-30 11:20] LABS: BASOPHILS % (AUTO) 0.4 % (0-1); EOSINOPHILS # (AUTO) 0.1 X10'3 (0-0.9); EOSINOPHILS % (AUTO) 0.8 % (0-6); HEMATOCRIT 37.8 % (42.0-52.0); HEMOGLOBIN 12.4 g/dl (14.0-17.9); LYMPHOCYTES # (AUTO) 1.1 X10'3 (1.1-4.8); LYMPHOCYTES % (AUTO) 16.4 % (21-51); MEAN CORPUSCULAR HEMOGLOBIN 29.7 PG (27.0-31.0); MEAN CORPUSCULAR HGB CONC 32.9 % (33.0-36.5); MEAN CORPUSCULAR VOLUME 90.2 FL (78-98); MEAN PLATELET VOLUME 7.1 FL (7.4-10.4); MONOCYTES # (AUTO) 0.3 X10'3 (0-0.9); MONOCYTES % (AUTO) 5.1 % (2-12); NEUTROPHILS # (AUTO) 5.2 X10'3 (1.8-7.7); NEUTROPHILS % (AUTO) 77.3 % (42-75); PLATELET COUNT 137 X10'3 (140-440); RED BLOOD COUNT 4.19 X10'6 (4.70-6.10); RED CELL DISTRIBUTION WIDTH 15.9 % (11.5-14.5); WHITE BLOOD COUNT 6.7 X10'3 (4.5-11.0)
[2017-11-30 11:55] LABS: ANION GAP 5 (8-16); BLOOD UREA NITROGEN 17 MG/DL (7-18); BUN/CREATININE RATIO 18.9 (5.4-32.0); CALCIUM 7.9 MG/DL (8.5-10.1); CHLORIDE 103 MMOL/L (99-107); GLUCOSE 153 MG/DL (70-104); SODIUM 143 MMOL/L (135-145); TOTAL CARBON DIOXIDE 34.7 MMOL/L (24-32); eGFR 86 ML/MIN
[2017-11-30 15:00] VITALS: BP 153/80
[2017-11-30 19:00] VITALS: BP 149/60
[2017-11-30] MEDS: insulin glargine (Lantus) pen - multi-dose SQ SCH (21:37)
[2017-11-30 23:00] VITALS: BP 148/65
[2017-12-01] MEDS: methylPREDNISolone sod succ/PF 40mg inj. IV SCH ×4 (01:19→20:29)
[2017-12-01] MEDS: metroNIDAZOLE 500mg tablet PO SCH ×3 (01:19→16:18)
[2017-12-01] MEDS: HYDROcodone/acetaminophen 5mg/325mg tablet PO PRN (01:25)
[2017-12-01 03:00] VITALS: BP 147/53
[2017-12-01] MEDS: ipratropium/albuterol 3ml nebule NEB SCH ×6 (03:00→23:30)
[2017-12-01 06:00] VITALS: BP 157/84
[2017-12-01] MEDS: lisinopril 20mg tablet PO SCH (08:29)
[2017-12-01] MEDS: gabapentin 100mg capsule PO SCH ×3 (08:29→20:29)
[2017-12-01] MEDS: cefTRIAXone 1g/NS 100ml IVPB 100 ML IV SCH (08:29)
[2017-12-01] MEDS: hydrOXYzine 25 MG tablet PO SCH ×2 (08:29→20:29)
[2017-12-01] MEDS: nicotine 21mg patch - 24 hr TD SCH (08:30)
[2017-12-01] MEDS: LACTOBACILLUS RHAMNOSUS GG 15 billion unit sprinkle caps PO SCH (08:30)
[2017-12-01] MEDS: guaiFENesin ER 600mg tablet PO SCH ×2 (08:30→20:29)
[2017-12-01] MEDS: azithromycin 250mg tablet PO SCH (08:30)
[2017-12-01] MEDS: buPROPion SR 150mg tablet PO SCH (08:30)
[2017-12-01] MEDS: pantoprazole 40mg Tablet.DR PO SCH (08:30)
[2017-12-01] MEDS: insulin Lispro (HumaLOG) vial - multi-dose SQ SCH ×4 (08:34→21:55)
[2017-12-01 11:00] VITALS: BP 148/85
[2017-12-01 15:00] VITALS: BP 146/87
[2017-12-01 19:00] VITALS: BP 148/87
[2017-12-01] MEDS: insulin glargine (Lantus) pen - multi-dose SQ SCH (21:54)
[2017-12-01 23:00] VITALS: BP 141/80
[2017-12-01 23:27] LABS: OCCULT BLOOD STOOL POSITIVE (Neg)
[2017-12-02] MEDS: metroNIDAZOLE 500mg tablet PO SCH ×3 (00:19→17:10)
[2017-12-02] MEDS: methylPREDNISolone sod succ/PF 40mg inj. IV SCH ×4 (02:14→21:30)
[2017-12-02 03:00] VITALS: BP 140/85
[2017-12-02] MEDS: ipratropium/albuterol 3ml nebule NEB SCH ×4 (03:08→14:45)
[2017-12-02 06:52] VITALS: BP 135/78
[2017-12-02] MEDS: insulin Lispro (HumaLOG) vial - multi-dose SQ SCH ×3 (07:44→18:52)
[2017-12-02] MEDS: guaiFENesin ER 600mg tablet PO SCH ×2 (07:46→21:30)
[2017-12-02] MEDS: azithromycin 250mg tablet PO SCH (07:46)
[2017-12-02] MEDS: hydrOXYzine 25 MG tablet PO SCH ×2 (07:46→21:30)
[2017-12-02] MEDS: buPROPion SR 150mg tablet PO SCH (07:46)
[2017-12-02] MEDS: LACTOBACILLUS RHAMNOSUS GG 15 billion unit sprinkle caps PO SCH (07:46)
[2017-12-02] MEDS: gabapentin 100mg capsule PO SCH ×3 (07:46→21:29)
[2017-12-02] MEDS: pantoprazole 40mg Tablet.DR PO SCH (07:46)
[2017-12-02] MEDS: cefTRIAXone 1g/NS 100ml IVPB 100 ML IV SCH (07:47)
[2017-12-02] MEDS: lisinopril 20mg tablet PO SCH (07:47)
[2017-12-02] MEDS: nicotine 21mg patch - 24 hr TD SCH (07:55)
[2017-12-02 11:00] VITALS: BP 140/82
[2017-12-02 12:07] LABS: C DIFF ANTIGEN NEGATIVE (NEGATIVE); C DIFF SPECIMEN=DIARRHEA? ACCEPTABLE; C DIFFICILE TOXINS A&B NEGATIVE (Neg)
[2017-12-02] MEDS ORDERED: ipratropium/albuterol 3ml nebule NEB PRN (14:14)
[2017-12-02 15:00] VITALS: BP 137/81
[2017-12-02 18:30] VITALS: BP 149/85
[2017-12-02] MEDS: insulin glargine (Lantus) pen - multi-dose SQ SCH (21:00)
[2017-12-02 23:20] VITALS: BP 136/82
[2017-12-03] MEDS: metroNIDAZOLE 500mg tablet PO SCH ×2 (00:04→07:43)
[2017-12-03] MEDS: methylPREDNISolone sod succ/PF 40mg inj. IV SCH ×3 (01:39→14:00)
[2017-12-03 03:13] VITALS: BP 139/88
[2017-12-03 06:00] VITALS: BP 145/87
[2017-12-03 07:40] VITALS: BP 140/88
[2017-12-03] MEDS: nicotine 21mg patch - 24 hr TD SCH (07:42)
[2017-12-03] MEDS: cefTRIAXone 1g/NS 100ml IVPB 100 ML IV SCH (07:42)
[2017-12-03] MEDS: LACTOBACILLUS RHAMNOSUS GG 15 billion unit sprinkle caps PO SCH (07:43)
[2017-12-03] MEDS: hydrOXYzine 25 MG tablet PO SCH (07:43)
[2017-12-03] MEDS: gabapentin 100mg capsule PO SCH ×2 (07:43→12:38)
[2017-12-03] MEDS: lisinopril 20mg tablet PO SCH (07:43)
[2017-12-03] MEDS: pantoprazole 40mg Tablet.DR PO SCH (07:43)
[2017-12-03] MEDS: azithromycin 250mg tablet PO SCH (07:43)
[2017-12-03] MEDS: guaiFENesin ER 600mg tablet PO SCH (07:43)
[2017-12-03] MEDS: buPROPion SR 150mg tablet PO SCH (07:43)
[2017-12-03] MEDS: insulin Lispro (HumaLOG) vial - multi-dose SQ SCH ×2 (08:55→13:42)
[2017-12-03] MEDS ORDERED: METR500T4 PO (09:20)
[2017-12-03] MEDS ORDERED: PRED10TA PO (09:29)
[2017-12-03 12:00] VITALS: BP 139/90
[2017-12-03] MEDS ORDERED: NICO-731 TOP (12:03)
== END 2017-12-03 15:51 | disposition home or self-care (01) | DRG 139 ==
LOC: ER 10:21 → ED HOLD 12:59 → PCU 3S 19:20 → CMPBEDREQ 19:50
PROVIDERS: ADMIT Internal Medicine; ATTEND Internal Medicine
PROC: 5A09357 Assistance with Respiratory Ventilation, Less than 24 Consecutive Hours, Continuous Positive Airway Pressure (ICD-10-PCS; principal; 2017-11-26)
PROC: 5A09357 Assistance with Respiratory Ventilation, Less than 24 Consecutive Hours, Continuous Positive Airway Pressure (ICD-10-PCS; 2017-11-28)
PROC: 5A09357 Assistance with Respiratory Ventilation, Less than 24 Consecutive Hours, Continuous Positive Airway Pressure (ICD-10-PCS; 2017-11-29)
PROC: 5A09357 Assistance with Respiratory Ventilation, Less than 24 Consecutive Hours, Continuous Positive Airway Pressure (ICD-10-PCS; 2017-11-30)
DX: J18.9 Pneumonia, unspecified organism (principal); J96.21 Acute and chronic respiratory failure with hypoxia; J44.1 Chronic obstructive pulmonary disease with (acute) exacerbation; E87.6 Hypokalemia; I10 Essential (primary) hypertension; R00.0 Tachycardia, unspecified; E11.9 Type 2 diabetes mellitus without complications; F99 Mental disorder, not otherwise specified; R19.7 Diarrhea, unspecified; F17.210 Nicotine dependence, cigarettes, uncomplicated; B19.20 Unspecified viral hepatitis C without hepatic coma; F41.9 Anxiety disorder, unspecified; H91.90 Unspecified hearing loss, unspecified ear; J44.0 Chronic obstructive pulmonary disease with (acute) lower respiratory infection; Z79.4 Long term (current) use of insulin; Z88.8 Allergy status to other drugs, medicaments and biological substances; Z87.11 Personal history of peptic ulcer disease; Z71.6 Tobacco abuse counseling; Z79.84 Long term (current) use of oral hypoglycemic drugs
CPT/HCPCS: 36415; 36600; 71045; 74021; 80048; 80053; 80061; 82272; 82803; 82948; 83605; 83880; 85018; 85025; 87040; 87045; 87046; 87070; 87324; 87449; 87502; 87503; 89055; 92616; 93005; 93306; 94640; 94660; 94668; 94760; 96365; 96375; 99291; A6212; A6213; A6250; J0456; J0696; J1170; J1815; J2060; J2270; J2920; J2930; J3370; J3480; J3490; J7030; Q0177

== ENCOUNTER 2018-04-02 13:26 | Inpatient (IN) | payer MEDICAID ==
[~2018-04-02] VITALS: Ht 170.2 cm; Wt 60.0 kg
[~2018-04-02 13:26] MED LIST changes: +ACET-54 PO; +BUPR150T27 PO; -FERR324T4 PO; +GLIM1TAB46 PO; +HYDR-3927 PO; +IBUP-1985 PO; +INSU100I31 SQ; -INSU100V11 SQ; -INSU100V9; +LANS15CA18 PO; +METF500T PO; +METR500T4 PO; -NICO-687 TD; -NICO-687 TOP; +NICO-731 TOP; +PRED10TA PO; +PSYL1PAC9 PO; -SYRI1DIS90; -VANC250C12 PO
[2018-04-02 14:20] LABS: BASOPHILS % (AUTO) 0.2 % (0-1); EOSINOPHILS # (AUTO) 0.2 X10'3 (0-0.9); EOSINOPHILS % (AUTO) 1.9 % (0-6); HEMATOCRIT 37.9 % (42.0-52.0); HEMOGLOBIN 13.2 g/dl (14.0-17.9); LYMPHOCYTES % (AUTO) 18.1 % (21-51); MEAN CORPUSCULAR HEMOGLOBIN 30.8 PG (27.0-31.0); MEAN CORPUSCULAR HGB CONC 34.8 % (33.0-36.5); MEAN CORPUSCULAR VOLUME 88.4 FL (78-98); MEAN PLATELET VOLUME 7.3 FL (7.4-10.4); MONOCYTES # (AUTO) 0.8 X10'3 (0-0.9); MONOCYTES % (AUTO) 6.9 % (2-12); NEUTROPHILS # (AUTO) 8.2 X10'3 (1.8-7.7); NEUTROPHILS % (AUTO) 72.9 % (42-75); PLATELET COUNT 212 X10'3 (140-440); RED BLOOD COUNT 4.28 X10'6 (4.70-6.10); RED CELL DISTRIBUTION WIDTH 13.5 % (11.5-14.5); WHITE BLOOD COUNT 11.2 X10'3 (4.5-11.0)
[2018-04-02 14:29] LABS: PARTIAL THROMBOPLASTIN TIME 25 SECONDS (22-32); PROTHROMBIN TIME 10.1 SECONDS (9.0-12.0)
[2018-04-02 14:35] LABS: ALANINE AMINOTRANSFERASE 37 U/L (12-78); ALBUMIN 3.8 G/DL (3.4-5.0); ALBUMIN/GLOBULIN RATIO 0.7 (1.1-1.5); ALKALINE PHOSPHATASE 113 IU/L (46-116); ANION GAP 14 (8-16); ASPARTATE AMINO TRANSFERASE 34 U/L (10-37); BILIRUBIN,TOTAL 0.6 MG/DL (0.1-1.0); BLOOD UREA NITROGEN 18 MG/DL (7-18); BUN/CREATININE RATIO 11.8 (5.4-32.0); CALCIUM 9.2 MG/DL (8.5-10.1); CHLORIDE 97 MMOL/L (99-107); CREATININE 1.52 MG/DL (0.60-1.10); GLUCOSE 150 MG/DL (70-104); MAGNESIUM 1.6 MG/DL (1.5-2.4); POTASSIUM 3.5 MMOL/L (3.5-5.1); SODIUM 138 MMOL/L (135-145); TOTAL CARBON DIOXIDE 27.1 MMOL/L (24-32); TOTAL PROTEIN 9.2 G/DL (6.4-8.2); eGFR 47 ML/MIN
[2018-04-02] MEDS ORDERED: ondansetron/PF 4mg/2ml inj IV ONE (15:20)
[2018-04-02] MEDS ORDERED: HYDROcodone/acetaminophen 10/325mg tab PO ONE (15:20)
[2018-04-02] MEDS ORDERED: vancomycin/NS 1 GM ADD-VANTAGE 250 ML IV ONE (15:45)
[2018-04-02] MEDS ORDERED: piperacillin/tazo 3.375gm/50ml 50 ML IV ONE (15:45)
[2018-04-02] MEDS ORDERED: normal saline 1000ML IV soln IV ONE (15:45)
[2018-04-02] MEDS ORDERED: magnesium 2GM in 50ml NS 50 ML IV PRN (16:30)
[2018-04-02] MEDS ORDERED: morphine 4 MG/ML inj SYRINge IV PRN (16:30)
[2018-04-02] MEDS ORDERED: potassium Cl 40MEQ/NS 500ml 500 ML IV PRN ×2 (16:30)
[2018-04-02] MEDS ORDERED: HYDROcodone/acetaminophen 5mg/325mg tablet PO PRN (16:30)
[2018-04-02] MEDS ORDERED: bisacodyl 10mg suppository rectal RC PRN (16:30)
[2018-04-02] MEDS ORDERED: vancomycin/NS 1 GM ADD-VANTAGE 250 ML IV SCH (16:30)
[2018-04-02] MEDS ORDERED: ondansetron/PF 4mg/2ml inj IV PRN (16:30)
[2018-04-02] MEDS ORDERED: magnesium 4gm in 100ml NS 100 ML IV PRN (16:30)
[2018-04-02] MEDS ORDERED: acetaminophen 325mg tablet PO PRN (16:30)
[2018-04-02] MEDS ORDERED: magnesium hydroxide 30ml (MOM) UD suspension PO PRN (16:30)
[2018-04-02] MEDS ORDERED: potassium Cl 20 mEq SR tablet PO PRN ×2 (16:30)
[2018-04-02] MEDS ORDERED: mag hydrox/Alum hydrox/simeth 30ml oral suspension PO PRN (16:30)
[2018-04-02] MEDS ORDERED: glucagon, human recombinant 1mg kit SUBCUT PRN (16:50)
[2018-04-02] MEDS ORDERED: dextrose ORAL solution 15 GM/59 ML bottle PO PRN ×2 (16:50)
[2018-04-02] MEDS ORDERED: MESSAGE TO PHARMACY PO ONE (16:50)
[2018-04-02] MEDS ORDERED: albuterol 2.5 MG/3 ML nebule NEB PRN (16:50)
[2018-04-02] MEDS ORDERED: dextrose 50%-water 50ml dispensing syringe IV PRN ×2 (16:50)
[2018-04-02] MEDS ORDERED: NICO-630 (16:52)
[2018-04-02] MEDS ORDERED: NORT50CA (16:52)
[2018-04-02 17:38] LABS: HEMOGLOBIN A1C 7.4 % (4.5-6.2)
[2018-04-02 17:45] VITALS: BP 133/80
[2018-04-02] MEDS: potassium Cl 20mEq in NS 1,000 ML IV SCH (19:52)
[2018-04-02] MEDS: insulin glargine (Lantus) pen - multi-dose SQ SCH (21:00)
[2018-04-02 22:00] VITALS: BP 154/79
[2018-04-02 22:50] LABS: CLARITY,URINE SLIGHTLY CLOUDY (Clear); COLOR,URINE YELLOW (Yellow); GLUCOSE, URINE 500 mg/dl (Neg); KETONES,URINE NEGATIVE (Neg); LEUKOCYTE ESTERASE ,URINE NEGATIVE (Neg); NITRITES, URINE NEGATIVE (Neg); OCCULT BLOOD,URINE TRACE-INTACT (Neg); PH,URINE 5.5 (4.8-8.0); PROTEIN,URINE TRACE mg/dl (Neg); UA COLLECTION TYPE CLN CATCH MIDSTREAM; UROBILINOGEN,URINE 0.2 E.U/dL (0.2-1.0)
[2018-04-02 23:10] LABS: RBC,URINE 0-2 /HPF (0-2); WBC,URINE 0-4 /HPF (0-4)
[2018-04-02 23:11] LABS: BACTERIA,URINE FEW /HPF (Neg); CAL OXALATE CRYSTALS 3+ /HPF (NEGATIVE); MUCUS STRANDS NONE SEEN /LPF (Neg); SQUAMOUS EPITHELIAL CELL,UR FEW /LPF (FEW)
[2018-04-02] MEDS: docusate sod 100mg capsule PO SCH (23:11)
[2018-04-02] MEDS: gabapentin 100mg capsule PO SCH (23:11)
[2018-04-02] MEDS: HYDROcodone/acetaminophen 10/325mg tab PO PRN (23:12)
[2018-04-03] MEDS: piperacillin/tazo 4.5gm/100ml 100 ML IV SCH ×4 (01:16→23:32)
[2018-04-03 05:34] LABS: BASOPHILS % (AUTO) 0.3 % (0-1); EOSINOPHILS # (AUTO) 0.1 X10'3 (0-0.9); EOSINOPHILS % (AUTO) 2.1 % (0-6); HEMATOCRIT 31.2 % (42.0-52.0); HEMOGLOBIN 10.9 g/dl (14.0-17.9); LYMPHOCYTES # (AUTO) 1.6 X10'3 (1.1-4.8); LYMPHOCYTES % (AUTO) 22.6 % (21-51); MEAN CORPUSCULAR HEMOGLOBIN 30.8 PG (27.0-31.0); MEAN CORPUSCULAR VOLUME 87.9 FL (78-98); MEAN PLATELET VOLUME 7.2 FL (7.4-10.4); MONOCYTES # (AUTO) 0.6 X10'3 (0-0.9); NEUTROPHILS # (AUTO) 4.9 X10'3 (1.8-7.7); PLATELET COUNT 127 X10'3 (140-440); RED BLOOD COUNT 3.55 X10'6 (4.70-6.10); RED CELL DISTRIBUTION WIDTH 13.4 % (11.5-14.5); WHITE BLOOD COUNT 7.3 X10'3 (4.5-11.0)
[2018-04-03 05:53] LABS: ALANINE AMINOTRANSFERASE 30 U/L (12-78); ALBUMIN 2.4 G/DL (3.4-5.0); ALBUMIN/GLOBULIN RATIO 0.6 (1.1-1.5); ALKALINE PHOSPHATASE 83 IU/L (46-116); ANION GAP 7 (8-16); ASPARTATE AMINO TRANSFERASE 27 U/L (10-37); BILIRUBIN,TOTAL 0.6 MG/DL (0.1-1.0); BLOOD UREA NITROGEN 11 MG/DL (7-18); BUN/CREATININE RATIO 11.3 (5.4-32.0); CALCIUM 7.5 MG/DL (8.5-10.1); CHLORIDE 101 MMOL/L (99-107); CREATININE 0.97 MG/DL (0.60-1.10); GLUCOSE 192 MG/DL (70-104); MAGNESIUM 1.4 MG/DL (1.5-2.4); POTASSIUM 3.7 MMOL/L (3.5-5.1); SODIUM 135 MMOL/L (135-145); TOTAL CARBON DIOXIDE 27.5 MMOL/L (24-32); TOTAL PROTEIN 6.3 G/DL (6.4-8.2); eGFR 79 ML/MIN
[2018-04-03 06:00] VITALS: BP 153/91
[2018-04-03] MEDS ORDERED: buproprion 150mg XL (24-hour) tablet PO SCH (08:00)
[2018-04-03] MEDS: K and/or MAG REPLACEMENT MC SCH (08:00)
[2018-04-03] MEDS: docusate sod 100mg capsule PO SCH ×2 (09:06→20:27)
[2018-04-03] MEDS: potassium Cl 20mEq in NS 1,000 ML IV SCH (09:06)
[2018-04-03] MEDS: gabapentin 100mg capsule PO SCH ×3 (09:07→20:27)
[2018-04-03] MEDS: nicotine 21mg patch - 24 hr TD SCH (09:08)
[2018-04-03] MEDS: enoxaparin 40mg/0.4ml syringe SUBCUT SCH (09:08)
[2018-04-03] MEDS: insulin Lispro (HumaLOG) vial - multi-dose SQ SCH ×3 (09:23→19:37)
[2018-04-03 10:00] VITALS: BP 142/73
[2018-04-03] MEDS: magnesium Cl slow-release 64mg tablet PO PRN ×2 (10:11→20:27)
[2018-04-03] MEDS ORDERED: vancomycin/NS 1 GM ADD-VANTAGE 250 ML IV SCH (16:00)
[2018-04-03 18:00] VITALS: BP 136/71
[2018-04-03] MEDS: vancomycin/NS 1 GM ADD-VANTAGE 250 ML IV SCH (20:27)
[2018-04-03] MEDS: lactobacillus rhamnosus 10,000 MMU CELLS/CAPSULE PO SCH (20:27)
[2018-04-03] MEDS: pantoprazole 40mg Tablet.DR PO SCH (20:27)
[2018-04-03 22:00] VITALS: BP 127/67
[2018-04-03] MEDS: insulin glargine (Lantus) pen - multi-dose SQ SCH (22:17)
[2018-04-04] MEDS: HYDROcodone/acetaminophen 10/325mg tab PO PRN (02:20)
[2018-04-04 05:00] VITALS: BP 154/81
[2018-04-04 06:34] LABS: BASOPHILS % (AUTO) 0.3 % (0-1); EOSINOPHILS # (AUTO) 0.1 X10'3 (0-0.9); EOSINOPHILS % (AUTO) 2.4 % (0-6); HEMATOCRIT 30.5 % (42.0-52.0); HEMOGLOBIN 10.8 g/dl (14.0-17.9); LYMPHOCYTES # (AUTO) 1.5 X10'3 (1.1-4.8); MEAN CORPUSCULAR HEMOGLOBIN 30.9 PG (27.0-31.0); MEAN CORPUSCULAR HGB CONC 35.5 % (33.0-36.5); MEAN CORPUSCULAR VOLUME 87.2 FL (78-98); MEAN PLATELET VOLUME 7.2 FL (7.4-10.4); MONOCYTES # (AUTO) 0.5 X10'3 (0-0.9); MONOCYTES % (AUTO) 8.8 % (2-12); NEUTROPHILS # (AUTO) 3.8 X10'3 (1.8-7.7); NEUTROPHILS % (AUTO) 63.5 % (42-75); PLATELET COUNT 152 X10'3 (140-440); RED CELL DISTRIBUTION WIDTH 13.2 % (11.5-14.5)
[2018-04-04 06:45] LABS: ALANINE AMINOTRANSFERASE 22 U/L (12-78); ALBUMIN 2.4 G/DL (3.4-5.0); ALBUMIN/GLOBULIN RATIO 0.6 (1.1-1.5); ALKALINE PHOSPHATASE 79 IU/L (46-116); ANION GAP 5 (8-16); ASPARTATE AMINO TRANSFERASE 15 U/L (10-37); BILIRUBIN,TOTAL 0.4 MG/DL (0.1-1.0); BLOOD UREA NITROGEN 7 MG/DL (7-18); BUN/CREATININE RATIO 6.5 (5.4-32.0); CALCIUM 8.2 MG/DL (8.5-10.1); CHLORIDE 99 MMOL/L (99-107); CREATININE 1.07 MG/DL (0.60-1.10); GLUCOSE 195 MG/DL (70-104); MAGNESIUM 1.4 MG/DL (1.5-2.4); POTASSIUM 3.2 MMOL/L (3.5-5.1); SODIUM 138 MMOL/L (135-145); TOTAL PROTEIN 6.7 G/DL (6.4-8.2); eGFR 71 ML/MIN
[2018-04-04] MEDS: piperacillin/tazo 4.5gm/100ml 100 ML IV SCH ×2 (07:44→16:03)
[2018-04-04] MEDS: nicotine 21mg patch - 24 hr TD SCH (07:51)
[2018-04-04] MEDS: buPROPion SR 150mg tablet PO SCH (07:52)
[2018-04-04] MEDS: enoxaparin 40mg/0.4ml syringe SUBCUT SCH (07:52)
[2018-04-04] MEDS: lactobacillus rhamnosus 10,000 MMU CELLS/CAPSULE PO SCH ×2 (07:52→20:55)
[2018-04-04] MEDS: pantoprazole 40mg Tablet.DR PO SCH ×2 (07:52→20:55)
[2018-04-04] MEDS: gabapentin 100mg capsule PO SCH ×3 (07:52→20:55)
[2018-04-04] MEDS: docusate sod 100mg capsule PO SCH ×2 (07:52→20:00)
[2018-04-04] MEDS ORDERED: pantoprazole 40mg Tablet.DR PO SCH (08:00)
[2018-04-04] MEDS: K and/or MAG REPLACEMENT MC SCH (08:00)
[2018-04-04] MEDS ORDERED: potassium Cl 20 mEq SR tablet PO STA (08:21)
[2018-04-04] MEDS ORDERED: magnesium 2GM in 50ml NS 50 ML IV ONE (08:25)
[2018-04-04 10:00] VITALS: BP 139/76
[2018-04-04] MEDS: vancomycin/NS 1 GM ADD-VANTAGE 250 ML IV SCH ×2 (13:09→20:55)
[2018-04-04] MEDS: insulin Lispro (HumaLOG) vial - multi-dose SQ SCH ×2 (14:04→19:20)
[2018-04-04 18:00] VITALS: BP 150/79
[2018-04-04] MEDS: insulin glargine (Lantus) pen - multi-dose SQ SCH (21:14)
[2018-04-04] MEDS ORDERED: ringers solution, lacted 1,000 ML IV ONE (22:14)
[2018-04-04 23:08] VITALS: BP 142/73
[2018-04-05] VITALS (17 sets, daily range): BP systolic 120–163; BP diastolic 64–93
[2018-04-05] MEDS: piperacillin/tazo 4.5gm/100ml 100 ML IV SCH ×4 (00:13→23:50)
[2018-04-05] MEDS ORDERED: famotidine 20mg tablet PO ONE (06:00)
[2018-04-05] MEDS ORDERED: ceFAZolin 1000mg inj ONE (07:22)
[2018-04-05] MEDS ORDERED: VANCOMYCIN LEVEL IV ONE ×2 (07:30→19:30)
[2018-04-05 07:40] LABS: BASOPHILS % (AUTO) 0.2 % (0-1); EOSINOPHILS # (AUTO) 0.1 X10'3 (0-0.9); EOSINOPHILS % (AUTO) 2.4 % (0-6); HEMATOCRIT 31.7 % (42.0-52.0); LYMPHOCYTES # (AUTO) 1.2 X10'3 (1.1-4.8); LYMPHOCYTES % (AUTO) 24.2 % (21-51); MEAN CORPUSCULAR HEMOGLOBIN 30.4 PG (27.0-31.0); MEAN CORPUSCULAR HGB CONC 34.6 % (33.0-36.5); MEAN PLATELET VOLUME 6.5 FL (7.4-10.4); MONOCYTES # (AUTO) 0.4 X10'3 (0-0.9); MONOCYTES % (AUTO) 8.7 % (2-12); NEUTROPHILS # (AUTO) 3.3 X10'3 (1.8-7.7); NEUTROPHILS % (AUTO) 64.5 % (42-75); PLATELET COUNT 182 X10'3 (140-440); RED BLOOD COUNT 3.61 X10'6 (4.70-6.10); RED CELL DISTRIBUTION WIDTH 13.4 % (11.5-14.5); WHITE BLOOD COUNT 5.1 X10'3 (4.5-11.0)
[2018-04-05 07:43] LABS: RED BLOOD COUNT 3.57 X10'6 (4.70-6.10); RETICULOCYTE % (AUTO) 1.7 % (0.5-1.5)
[2018-04-05] MEDS ORDERED: midazolam 2 mg/2 ml injection ONE (07:47)
[2018-04-05] MEDS ORDERED: fentaNYL/PF 50MCG/1 ML 2ML syringe ONE (07:47)
[2018-04-05] MEDS ORDERED: propofol inj 20 ML IV ONE (07:48)
[2018-04-05] MEDS ORDERED: sevoflurane 250ml liquid IH ONE (07:55)
[2018-04-05] MEDS: vancomycin/NS 1 GM ADD-VANTAGE 250 ML IV SCH ×2 (08:00→20:06)
[2018-04-05] MEDS: gabapentin 100mg capsule PO SCH ×3 (08:00→20:06)
[2018-04-05] MEDS: K and/or MAG REPLACEMENT MC SCH (08:00)
[2018-04-05] MEDS: enoxaparin 40mg/0.4ml syringe SUBCUT SCH (08:00)
[2018-04-05] MEDS ORDERED: ringers solution, lacted 1,000 ML IV SCH (08:01)
[2018-04-05] MEDS ORDERED: ondansetron/PF 4mg/2ml inj IV PRN (08:05)
[2018-04-05] MEDS ORDERED: meperidine/PF 25mg/ml syringe IV PRN ×3 (08:05)
[2018-04-05] MEDS ORDERED: proCHLORperazine 10 MG/2 ml inj IV PRN (08:05)
[2018-04-05] MEDS ORDERED: morphine 4 MG/ML inj SYRINge IV PRN ×2 (08:05)
[2018-04-05 08:14] LABS: ALANINE AMINOTRANSFERASE 22 U/L (12-78); ALBUMIN 2.7 G/DL (3.4-5.0); ALBUMIN/GLOBULIN RATIO 0.6 (1.1-1.5); ALKALINE PHOSPHATASE 76 IU/L (46-116); ANION GAP 9 (8-16); ASPARTATE AMINO TRANSFERASE 17 U/L (10-37); BILIRUBIN,TOTAL 0.5 MG/DL (0.1-1.0); BLOOD UREA NITROGEN 5 MG/DL (7-18); BUN/CREATININE RATIO 4.1 (5.4-32.0); CALCIUM 8.4 MG/DL (8.5-10.1); CHLORIDE 98 MMOL/L (99-107); CREATININE 1.23 MG/DL (0.60-1.10); FERRITIN 320 NG/ML (26-388); GLUCOSE 159 MG/DL (70-104); MAGNESIUM 1.7 MG/DL (1.5-2.4); PHOSPHORUS 3.7 MG/DL (2.3-4.5); POTASSIUM 3.3 MMOL/L (3.5-5.1); PREALBUMIN 12.7 MG/DL (19-36); SODIUM 140 MMOL/L (135-145); TOTAL CARBON DIOXIDE 32.7 MMOL/L (24-32); TOTAL PROTEIN 7.3 G/DL (6.4-8.2); VANCOMYCIN,TROUGH 17.1 UG/ML (6.0-14.0); eGFR 60 ML/MIN
[2018-04-05] MEDS ORDERED: bacitracin 15gm ointment TP ONE (08:16)
[2018-04-05 08:46] LABS: % IRON SATURATION 12 % (11-46); IRON 29 UG/DL (53-167); TOTAL IRON BINDING CAPACITY 242 UG/DL (259-388)
[2018-04-05] MEDS: morphine 4 MG/ML inj SYRINge IV PRN ×3 (13:36→22:21)
[2018-04-05] MEDS: buPROPion SR 150mg tablet PO SCH (14:05)
[2018-04-05] MEDS: docusate sod 100mg capsule PO SCH ×2 (14:05→20:00)
[2018-04-05] MEDS: lactobacillus rhamnosus 10,000 MMU CELLS/CAPSULE PO SCH ×2 (14:05→20:06)
[2018-04-05] MEDS: nicotine 21mg patch - 24 hr TD SCH (14:05)
[2018-04-05] MEDS: pantoprazole 40mg Tablet.DR PO SCH ×2 (14:05→20:06)
[2018-04-05] MEDS: insulin Lispro (HumaLOG) vial - multi-dose SQ SCH ×2 (14:12→19:02)
[2018-04-05] MEDS: HYDROcodone/acetaminophen 10/325mg tab PO PRN (19:00)
[2018-04-05] MEDS: insulin glargine (Lantus) pen - multi-dose SQ SCH (21:11)
[2018-04-06 02:00] VITALS: BP 128/75
[2018-04-06 05:58] LABS: BASOPHILS % (AUTO) 0.3 % (0-1); EOSINOPHILS # (AUTO) 0.1 X10'3 (0-0.9); EOSINOPHILS % (AUTO) 2.5 % (0-6); HEMATOCRIT 29.3 % (42.0-52.0); HEMOGLOBIN 10.3 g/dl (14.0-17.9); LYMPHOCYTES # (AUTO) 1.5 X10'3 (1.1-4.8); LYMPHOCYTES % (AUTO) 31.8 % (21-51); MEAN CORPUSCULAR HEMOGLOBIN 30.5 PG (27.0-31.0); MEAN CORPUSCULAR VOLUME 87.1 FL (78-98); MEAN PLATELET VOLUME 6.6 FL (7.4-10.4); MONOCYTES # (AUTO) 0.4 X10'3 (0-0.9); MONOCYTES % (AUTO) 9.4 % (2-12); NEUTROPHILS # (AUTO) 2.7 X10'3 (1.8-7.7); PLATELET COUNT 168 X10'3 (140-440); RED BLOOD COUNT 3.37 X10'6 (4.70-6.10); RED CELL DISTRIBUTION WIDTH 13.1 % (11.5-14.5); WHITE BLOOD COUNT 4.7 X10'3 (4.5-11.0)
[2018-04-06 06:00] VITALS: BP 123/70
[2018-04-06 06:22] LABS: ALANINE AMINOTRANSFERASE 22 U/L (12-78); ALBUMIN 2.4 G/DL (3.4-5.0); ALBUMIN/GLOBULIN RATIO 0.5 (1.1-1.5); ALKALINE PHOSPHATASE 83 IU/L (46-116); ANION GAP 8 (8-16); ASPARTATE AMINO TRANSFERASE 25 U/L (10-37); BILIRUBIN,TOTAL 0.3 MG/DL (0.1-1.0); BLOOD UREA NITROGEN 7 MG/DL (7-18); BUN/CREATININE RATIO 5.7 (5.4-32.0); CALCIUM 8.1 MG/DL (8.5-10.1); CHLORIDE 100 MMOL/L (99-107); CREATININE 1.22 MG/DL (0.60-1.10); GLUCOSE 125 MG/DL (70-104); MAGNESIUM 1.7 MG/DL (1.5-2.4); POTASSIUM 3.3 MMOL/L (3.5-5.1); SODIUM 140 MMOL/L (135-145); TOTAL CARBON DIOXIDE 32.2 MMOL/L (24-32); TOTAL PROTEIN 6.8 G/DL (6.4-8.2); eGFR 61 ML/MIN
[2018-04-06] MEDS: nicotine 21mg patch - 24 hr TD SCH (07:34)
[2018-04-06] MEDS: pantoprazole 40mg Tablet.DR PO SCH ×2 (07:35→20:38)
[2018-04-06] MEDS: gabapentin 100mg capsule PO SCH ×3 (07:35→20:38)
[2018-04-06] MEDS: docusate sod 100mg capsule PO SCH ×2 (07:35→20:38)
[2018-04-06] MEDS: lactobacillus rhamnosus 10,000 MMU CELLS/CAPSULE PO SCH ×2 (07:35→20:38)
[2018-04-06] MEDS: piperacillin/tazo 4.5gm/100ml 100 ML IV SCH ×3 (07:35→23:18)
[2018-04-06] MEDS: buPROPion SR 150mg tablet PO SCH (07:35)
[2018-04-06] MEDS: enoxaparin 40mg/0.4ml syringe SUBCUT SCH (07:36)
[2018-04-06] MEDS: K and/or MAG REPLACEMENT MC SCH (08:00)
[2018-04-06] MEDS: insulin Lispro (HumaLOG) vial - multi-dose SQ SCH ×3 (08:26→18:58)
[2018-04-06] MEDS: vancomycin/NS 1 GM ADD-VANTAGE 250 ML IV SCH ×2 (08:29→20:38)
[2018-04-06 10:00] VITALS: BP 142/87
[2018-04-06] MEDS: morphine 4 MG/ML inj SYRINge IV PRN ×2 (11:46→20:39)
[2018-04-06 14:00] VITALS: BP 147/81
[2018-04-06 17:57] LABS: A/G RATIO 0.8 (0.7-1.7); ALBUMIN 2.8 g/dL (2.9-4.4); GAMMA GLOBULIN 0.9 g/dL (0.4-1.8); GLOBULIN, TOTAL 3.6 g/dL (2.2-3.9); M-SPIKE Not Observed g/dL (Not Observed); PROTEIN, TOTAL, SERUM 6.4 g/dL (6.0-8.5)
[2018-04-06 18:00] VITALS: BP 159/88
[2018-04-06] MEDS: HYDROcodone/acetaminophen 10/325mg tab PO PRN ×2 (18:54→23:17)
[2018-04-06] MEDS: insulin glargine (Lantus) pen - multi-dose SQ SCH (20:47)
[2018-04-06 22:00] VITALS: BP 146/72
[2018-04-07 06:03] LABS: BASOPHILS % (AUTO) 0.4 % (0-1); EOSINOPHILS # (AUTO) 0.1 X10'3 (0-0.9); EOSINOPHILS % (AUTO) 1.9 % (0-6); HEMATOCRIT 29.4 % (42.0-52.0); HEMOGLOBIN 10.3 g/dl (14.0-17.9); LYMPHOCYTES # (AUTO) 1.4 X10'3 (1.1-4.8); LYMPHOCYTES % (AUTO) 29.3 % (21-51); MEAN CORPUSCULAR HEMOGLOBIN 30.5 PG (27.0-31.0); MEAN CORPUSCULAR VOLUME 87.1 FL (78-98); MEAN PLATELET VOLUME 6.5 FL (7.4-10.4); MONOCYTES # (AUTO) 0.5 X10'3 (0-0.9); MONOCYTES % (AUTO) 10.4 % (2-12); NEUTROPHILS # (AUTO) 2.7 X10'3 (1.8-7.7); PLATELET COUNT 159 X10'3 (140-440); RED BLOOD COUNT 3.37 X10'6 (4.70-6.10); RED CELL DISTRIBUTION WIDTH 12.9 % (11.5-14.5); WHITE BLOOD COUNT 4.7 X10'3 (4.5-11.0)
[2018-04-07 06:15] LABS: ALANINE AMINOTRANSFERASE 32 U/L (12-78); ALBUMIN 2.4 G/DL (3.4-5.0); ALBUMIN/GLOBULIN RATIO 0.5 (1.1-1.5); ALKALINE PHOSPHATASE 85 IU/L (46-116); ANION GAP 6 (8-16); ASPARTATE AMINO TRANSFERASE 36 U/L (10-37); BILIRUBIN,TOTAL 0.4 MG/DL (0.1-1.0); BLOOD UREA NITROGEN 7 MG/DL (7-18); BUN/CREATININE RATIO 6.1 (5.4-32.0); CALCIUM 8.4 MG/DL (8.5-10.1); CHLORIDE 98 MMOL/L (99-107); CREATININE 1.14 MG/DL (0.60-1.10); GLUCOSE 100 MG/DL (70-104); MAGNESIUM 1.5 MG/DL (1.5-2.4); POTASSIUM 3.3 MMOL/L (3.5-5.1); SODIUM 138 MMOL/L (135-145); TOTAL CARBON DIOXIDE 33.6 MMOL/L (24-32); TOTAL PROTEIN 6.9 G/DL (6.4-8.2); eGFR 66 ML/MIN
[2018-04-07] MEDS: HYDROcodone/acetaminophen 10/325mg tab PO PRN ×2 (07:00→13:27)
[2018-04-07] MEDS: gabapentin 100mg capsule PO SCH ×2 (07:01→12:43)
[2018-04-07] MEDS: buPROPion SR 150mg tablet PO SCH (07:01)
[2018-04-07] MEDS: piperacillin/tazo 4.5gm/100ml 100 ML IV SCH ×2 (07:01→16:00)
[2018-04-07] MEDS: nicotine 21mg patch - 24 hr TD SCH (07:01)
[2018-04-07] MEDS: lactobacillus rhamnosus 10,000 MMU CELLS/CAPSULE PO SCH (07:01)
[2018-04-07] MEDS: pantoprazole 40mg Tablet.DR PO SCH (07:01)
[2018-04-07] MEDS: enoxaparin 40mg/0.4ml syringe SUBCUT SCH (07:02)
[2018-04-07] MEDS: docusate sod 100mg capsule PO SCH (07:02)
[2018-04-07] MEDS: K and/or MAG REPLACEMENT MC SCH (07:07)
[2018-04-07] MEDS ORDERED: potassium Cl 20 mEq SR tablet PO ONE (07:25)
[2018-04-07] MEDS: morphine 4 MG/ML inj SYRINge IV PRN (07:45)
[2018-04-07 07:51] VITALS: BP 145/80
[2018-04-07] MEDS: vancomycin/NS 1 GM ADD-VANTAGE 250 ML IV SCH (08:31)
[2018-04-07] MEDS: insulin Lispro (HumaLOG) vial - multi-dose SQ SCH (08:34)
[2018-04-07 11:15] VITALS: BP 131/78
[2018-04-07] MEDS ORDERED: AMOX-100 PO (13:36)
[2018-04-07] MEDS ORDERED: HYDR-3972 PO (13:36)
[2018-04-07] MEDS ORDERED: INSU100I31 SQ (13:39)
== END 2018-04-07 19:04 | disposition home or self-care (01) | DRG 710 ==
LOC: ER 13:28 → ED HOLD 15:55 → EDBEDREQ 16:46 → ORTHO 4S 17:30
PROVIDERS: ADMIT Internal Medicine; ATTEND Family Medicine
PROC: 0X6M0Z3 Detachment at Left Thumb, Low, Open Approach (ICD-10-PCS; principal; 2018-04-05 07:35)
DX: A41.9 Sepsis, unspecified organism (principal); N17.9 Acute kidney failure, unspecified; E11.69 Type 2 diabetes mellitus with other specified complication; F12.90 Cannabis use, unspecified, uncomplicated; B19.20 Unspecified viral hepatitis C without hepatic coma; F41.9 Anxiety disorder, unspecified; D64.9 Anemia, unspecified; M86.8X8 Other osteomyelitis, other site; F17.200 Nicotine dependence, unspecified, uncomplicated; I10 Essential (primary) hypertension; J44.9 Chronic obstructive pulmonary disease, unspecified; L03.012 Cellulitis of left finger; Z59.0 Homelessness; Z79.4 Long term (current) use of insulin; Z87.11 Personal history of peptic ulcer disease; Z88.8 Allergy status to other drugs, medicaments and biological substances; Z79.899 Other long term (current) drug therapy
CPT/HCPCS: 36415; 71045; 73140; 80053; 80202; 81001; 82607; 82728; 82746; 82948; 83036; 83540; 83550; 83605; 83735; 84100; 84134; 84145; 84155; 84165; 84443; 85025; 85045; 85610; 85730; 87040; 87070; 87077; 87186; 93005; 94760; 99285; A6213; A6222; A6223; A6258; A6446; A6449; A7000; J0690; J1650; J1815; J2250; J2270; J2405; J2543; J2704; J3010; J3370; J3475; J7030; J7120

== ENCOUNTER 2018-04-12 16:15 | Inpatient (IN) | payer MEDICAID ==
[~2018-04-12] VITALS: Ht 170.2 cm; Wt 78.9 kg
[~2018-04-12 16:15] MED LIST changes: -ACET-54 PO; +AMOX-100 PO; -BUPR150T27 PO; +HYDR-3972 PO; -LANS15CA18 PO; -METF500T PO; -METR500T4 PO; -NICO-731 TOP; +NORT50CA; -PRED10TA PO; -PSYL1PAC9 PO
[2018-04-12 16:48] LABS: BASOPHILS % (AUTO) 0.1 % (0-1); EOSINOPHILS # (AUTO) 0.1 X10'3 (0-0.9); HEMATOCRIT 27.7 % (42.0-52.0); HEMOGLOBIN 9.5 g/dl (14.0-17.9); LYMPHOCYTES # (AUTO) 2.1 X10'3 (1.1-4.8); LYMPHOCYTES % (AUTO) 30.8 % (21-51); MEAN CORPUSCULAR HEMOGLOBIN 29.7 PG (27.0-31.0); MEAN CORPUSCULAR HGB CONC 34.4 % (33.0-36.5); MEAN CORPUSCULAR VOLUME 86.2 FL (78-98); MEAN PLATELET VOLUME 6.4 FL (7.4-10.4); MONOCYTES # (AUTO) 0.3 X10'3 (0-0.9); MONOCYTES % (AUTO) 4.8 % (2-12); NEUTROPHILS # (AUTO) 4.2 X10'3 (1.8-7.7); NEUTROPHILS % (AUTO) 62.3 % (42-75); PLATELET COUNT 223 X10'3 (140-440); RED BLOOD COUNT 3.21 X10'6 (4.70-6.10); RED CELL DISTRIBUTION WIDTH 13.6 % (11.5-14.5); WHITE BLOOD COUNT 6.7 X10'3 (4.5-11.0)
[2018-04-12] MEDS ORDERED: normal saline 1000ML IV soln IVB ONE (17:00)
[2018-04-12 17:09] LABS: ALANINE AMINOTRANSFERASE 22 U/L (12-78); ALBUMIN 2.7 G/DL (3.4-5.0); ALBUMIN/GLOBULIN RATIO 0.6 (1.1-1.5); ANION GAP 15 (8-16); ASPARTATE AMINO TRANSFERASE 21 U/L (10-37); BILIRUBIN,TOTAL 0.2 MG/DL (0.1-1.0); BLOOD UREA NITROGEN 13 MG/DL (7-18); BUN/CREATININE RATIO 9.6 (5.4-32.0); CALCIUM 8.3 MG/DL (8.5-10.1); CHLORIDE 105 MMOL/L (99-107); CREATININE 1.35 MG/DL (0.60-1.10); GLUCOSE 124 MG/DL (70-104); POTASSIUM 4.4 MMOL/L (3.5-5.1); SODIUM 145 MMOL/L (135-145); TOTAL CARBON DIOXIDE 24.9 MMOL/L (24-32); TOTAL PROTEIN 7.1 G/DL (6.4-8.2); eGFR 54 ML/MIN
[2018-04-12 17:10] LABS: ALKALINE PHOSPHATASE 77 IU/L (46-116)
[2018-04-12 17:16] LABS: MAGNESIUM 1.6 MG/DL (1.5-2.4)
[2018-04-12] MEDS ORDERED: ondansetron/PF 4mg/2ml inj IV ONE (18:20)
[2018-04-12] MEDS ORDERED: morphine 4 MG/ML inj SYRINge IV ONE (18:20)
[2018-04-12] MEDS ORDERED: magnesium hydroxide 30ml (MOM) UD suspension PO PRN (19:55)
[2018-04-12] MEDS ORDERED: mag hydrox/Alum hydrox/simeth 30ml oral suspension PO PRN (19:55)
[2018-04-12] MEDS ORDERED: acetaminophen 325mg tablet PO PRN (19:55)
[2018-04-12] MEDS ORDERED: ondansetron/PF 4mg/2ml inj IV PRN (19:55)
[2018-04-12] MEDS ORDERED: MESSAGE TO PHARMACY PO ONE (20:00)
[2018-04-12] MEDS ORDERED: dextrose 50%-water 50ml dispensing syringe IV PRN ×2 (20:00)
[2018-04-12] MEDS ORDERED: dextrose ORAL solution 15 GM/59 ML bottle PO PRN ×2 (20:00)
[2018-04-12] MEDS ORDERED: glucagon, human recombinant 1mg kit SUBCUT PRN (20:00)
[2018-04-12 20:10] LABS: PROTHROMBIN TIME 10.6 SECONDS (9.0-12.0)
[2018-04-12] MEDS: heparin, porcine 5000 units/ml vial SQ SCH (20:11)
[2018-04-12] MEDS: normal saline 1000ml 1,000 ML IV SCH ×2 (20:11→22:14)
[2018-04-12 21:30] VITALS: BP 119/76
[2018-04-12] MEDS: morphine 4 MG/ML inj SYRINge IV PRN (22:58)
[2018-04-12] MEDS: amoxicillin 250mg capsule PO SCH (23:02)
[2018-04-12] MEDS: gabapentin 100mg capsule PO SCH (23:04)
[2018-04-12] MEDS: insulin Lispro (HumaLOG) vial - multi-dose SQ SCH (23:07)
[2018-04-13] VITALS (13 sets, daily range): BP systolic 93–155; BP diastolic 51–92
[2018-04-13] MEDS: morphine 4 MG/ML inj SYRINge IV PRN (05:15)
[2018-04-13 05:40] LABS: BASOPHILS % (AUTO) 0.4 % (0-1); EOSINOPHILS # (AUTO) 0.2 X10'3 (0-0.9); EOSINOPHILS % (AUTO) 2.1 % (0-6); HEMATOCRIT 27.2 % (42.0-52.0); HEMOGLOBIN 9.3 g/dl (14.0-17.9); LYMPHOCYTES # (AUTO) 1.7 X10'3 (1.1-4.8); MEAN CORPUSCULAR HGB CONC 34.3 % (33.0-36.5); MEAN CORPUSCULAR VOLUME 87.6 FL (78-98); MEAN PLATELET VOLUME 7.3 FL (7.4-10.4); MONOCYTES # (AUTO) 0.4 X10'3 (0-0.9); NEUTROPHILS # (AUTO) 5.1 X10'3 (1.8-7.7); NEUTROPHILS % (AUTO) 69.5 % (42-75); PLATELET COUNT 166 X10'3 (140-440); RED CELL DISTRIBUTION WIDTH 13.2 % (11.5-14.5); WHITE BLOOD COUNT 7.3 X10'3 (4.5-11.0)
[2018-04-13 06:38] LABS: ALANINE AMINOTRANSFERASE 22 U/L (12-78); ALBUMIN 2.5 G/DL (3.4-5.0); ALBUMIN/GLOBULIN RATIO 0.6 (1.1-1.5); ALKALINE PHOSPHATASE 81 IU/L (46-116); ANION GAP 7 (8-16); ASPARTATE AMINO TRANSFERASE 22 U/L (10-37); BILIRUBIN,TOTAL 0.3 MG/DL (0.1-1.0); BLOOD UREA NITROGEN 12 MG/DL (7-18); BUN/CREATININE RATIO 10.3 (5.4-32.0); CALCIUM 8.1 MG/DL (8.5-10.1); CHLORIDE 105 MMOL/L (99-107); CREATININE 1.16 MG/DL (0.60-1.10); GLUCOSE 172 MG/DL (70-104); POTASSIUM 4.5 MMOL/L (3.5-5.1); SODIUM 139 MMOL/L (135-145); TOTAL CARBON DIOXIDE 27.5 MMOL/L (24-32); TOTAL PROTEIN 6.7 G/DL (6.4-8.2); eGFR 64 ML/MIN
[2018-04-13] MEDS: heparin, porcine 5000 units/ml vial SQ SCH ×2 (07:39→19:36)
[2018-04-13] MEDS: gabapentin 100mg capsule PO SCH ×3 (07:39→22:04)
[2018-04-13] MEDS: amoxicillin 250mg capsule PO SCH ×3 (07:39→22:05)
[2018-04-13] MEDS: HYDROcodone/acetaminophen 10/325mg tab PO PRN ×3 (11:07→22:05)
[2018-04-13] MEDS ORDERED: ceFAZolin 1GM/D5W- ADD-VANTAGE 50 ML IV ONE (12:00)
[2018-04-13] MEDS ORDERED: ringers solution, lacted 1,000 ML IV SCH (12:10)
[2018-04-13] MEDS ORDERED: proCHLORperazine 10 MG/2 ml inj IV PRN (12:10)
[2018-04-13] MEDS ORDERED: ondansetron/PF 4mg/2ml inj IV PRN ×2 (12:10→14:05)
[2018-04-13] MEDS ORDERED: meperidine/PF 25mg/ml syringe IV PRN ×3 (12:10)
[2018-04-13] MEDS ORDERED: morphine 4 MG/ML inj SYRINge IV PRN ×2 (12:10)
[2018-04-13] MEDS ORDERED: fentaNYL/PF 50MCG/1 ML 2ML syringe ONE (12:17)
[2018-04-13] MEDS ORDERED: midazolam 2 mg/2 ml injection ONE (12:17)
[2018-04-13] MEDS: pantoprazole 40mg Tablet.DR PO SCH (12:40)
[2018-04-13] MEDS ORDERED: propofol inj 20 ML IV ONE (13:55)
[2018-04-13] MEDS ORDERED: magnesium hydroxide 30ml (MOM) UD suspension PO PRN (14:05)
[2018-04-13] MEDS ORDERED: bisacodyl 10mg suppository rectal RC PRN (14:05)
[2018-04-13] MEDS ORDERED: diphenhydrAMINE 25mg capsule PO PRN ×2 (14:05)
[2018-04-13] MEDS ORDERED: acetaminophen 325mg tablet PO PRN (14:05)
[2018-04-13] MEDS: normal saline 1000ml 1,000 ML IV SCH (15:52)
[2018-04-13] MEDS: ceFAZolin 1GM/D5W- ADD-VANTAGE 50 ML IV SCH (17:27)
[2018-04-13] MEDS: insulin Lispro (HumaLOG) vial - multi-dose SQ SCH (19:34)
[2018-04-13] MEDS: sennosides 8.6mg tablet PO SCH (22:04)
[2018-04-13] MEDS: lactobacillus rhamnosus 10,000 MMU CELLS/CAPSULE PO SCH (22:05)
[2018-04-14] MEDS: ceFAZolin 1GM/D5W- ADD-VANTAGE 50 ML IV SCH (00:05)
[2018-04-14 02:09] VITALS: BP 122/62
[2018-04-14] MEDS: HYDROcodone/acetaminophen 10/325mg tab PO PRN ×4 (02:14→23:35)
[2018-04-14] MEDS: normal saline 1000ml 1,000 ML IV SCH ×3 (02:14→23:36)
[2018-04-14 05:51] LABS: BASOPHILS % (AUTO) 0.3 % (0-1); EOSINOPHILS # (AUTO) 0.2 X10'3 (0-0.9); EOSINOPHILS % (AUTO) 2.1 % (0-6); HEMATOCRIT 25.9 % (42.0-52.0); HEMOGLOBIN 9.1 g/dl (14.0-17.9); LYMPHOCYTES # (AUTO) 1.6 X10'3 (1.1-4.8); LYMPHOCYTES % (AUTO) 17.4 % (21-51); MEAN CORPUSCULAR HEMOGLOBIN 30.2 PG (27.0-31.0); MEAN CORPUSCULAR HGB CONC 34.9 % (33.0-36.5); MEAN CORPUSCULAR VOLUME 86.5 FL (78-98); MEAN PLATELET VOLUME 6.7 FL (7.4-10.4); MONOCYTES # (AUTO) 0.5 X10'3 (0-0.9); MONOCYTES % (AUTO) 5.9 % (2-12); NEUTROPHILS # (AUTO) 6.6 X10'3 (1.8-7.7); NEUTROPHILS % (AUTO) 74.3 % (42-75); PLATELET COUNT 173 X10'3 (140-440); RED BLOOD COUNT 2.99 X10'6 (4.70-6.10); RED CELL DISTRIBUTION WIDTH 13.3 % (11.5-14.5); WHITE BLOOD COUNT 8.9 X10'3 (4.5-11.0)
[2018-04-14 06:22] LABS: ALANINE AMINOTRANSFERASE 23 U/L (12-78); ALBUMIN 2.4 G/DL (3.4-5.0); ALBUMIN/GLOBULIN RATIO 0.6 (1.1-1.5); ALKALINE PHOSPHATASE 85 IU/L (46-116); ANION GAP 9 (8-16); ASPARTATE AMINO TRANSFERASE 27 U/L (10-37); BILIRUBIN,TOTAL 0.4 MG/DL (0.1-1.0); BLOOD UREA NITROGEN 15 MG/DL (7-18); BUN/CREATININE RATIO 11.5 (5.4-32.0); CALCIUM 8.2 MG/DL (8.5-10.1); CHLORIDE 100 MMOL/L (99-107); CREATININE 1.31 MG/DL (0.60-1.10); GLUCOSE 234 MG/DL (70-104); POTASSIUM 5.3 MMOL/L (3.5-5.1); SODIUM 137 MMOL/L (135-145); TOTAL CARBON DIOXIDE 27.6 MMOL/L (24-32); TOTAL PROTEIN 6.6 G/DL (6.4-8.2); eGFR 56 ML/MIN
[2018-04-14 06:52] VITALS: BP 103/50
[2018-04-14] MEDS: lactobacillus rhamnosus 10,000 MMU CELLS/CAPSULE PO SCH ×2 (08:23→20:36)
[2018-04-14] MEDS: amoxicillin 250mg capsule PO SCH ×3 (08:24→20:36)
[2018-04-14] MEDS: pantoprazole 40mg Tablet.DR PO SCH (08:25)
[2018-04-14] MEDS: gabapentin 100mg capsule PO SCH ×3 (08:25→20:36)
[2018-04-14] MEDS: enoxaparin 40mg/0.4ml syringe SQ SCH (08:25)
[2018-04-14] MEDS: insulin Lispro (HumaLOG) vial - multi-dose SQ SCH (08:34)
[2018-04-14 18:00] VITALS: BP 108/65
[2018-04-14] MEDS: sennosides 8.6mg tablet PO SCH (20:36)
[2018-04-14 21:00] VITALS: BP 113/66
[2018-04-15] MEDS: morphine 4 MG/ML inj SYRINge IV PRN (02:15)
[2018-04-15] MEDS: HYDROcodone/acetaminophen 10/325mg tab PO PRN (03:37)
[2018-04-15 06:07] LABS: BASOPHILS % (AUTO) 0.1 % (0-1); EOSINOPHILS # (AUTO) 0.1 X10'3 (0-0.9); HEMATOCRIT 22.6 % (42.0-52.0); LYMPHOCYTES # (AUTO) 1.8 X10'3 (1.1-4.8); LYMPHOCYTES % (AUTO) 25.8 % (21-51); MEAN CORPUSCULAR HEMOGLOBIN 30.1 PG (27.0-31.0); MEAN CORPUSCULAR HGB CONC 35.4 % (33.0-36.5); MEAN PLATELET VOLUME 6.5 FL (7.4-10.4); MONOCYTES # (AUTO) 0.4 X10'3 (0-0.9); MONOCYTES % (AUTO) 6.1 % (2-12); NEUTROPHILS # (AUTO) 4.6 X10'3 (1.8-7.7); PLATELET COUNT 143 X10'3 (140-440); RED BLOOD COUNT 2.66 X10'6 (4.70-6.10); RED CELL DISTRIBUTION WIDTH 13.7 % (11.5-14.5); WHITE BLOOD COUNT 6.9 X10'3 (4.5-11.0)
[2018-04-15 06:26] LABS: ALANINE AMINOTRANSFERASE 371 U/L (12-78); ALBUMIN 2.3 G/DL (3.4-5.0); ALBUMIN/GLOBULIN RATIO 0.5 (1.1-1.5); ALKALINE PHOSPHATASE 87 IU/L (46-116); ANION GAP 8 (8-16); ASPARTATE AMINO TRANSFERASE 738 U/L (10-37); BILIRUBIN,TOTAL 0.3 MG/DL (0.1-1.0); BLOOD UREA NITROGEN 22 MG/DL (7-18); BUN/CREATININE RATIO 16.2 (5.4-32.0); CALCIUM 8.1 MG/DL (8.5-10.1); CHLORIDE 99 MMOL/L (99-107); CREATININE 1.36 MG/DL (0.60-1.10); GLUCOSE 182 MG/DL (70-104); POTASSIUM 4.6 MMOL/L (3.5-5.1); SODIUM 134 MMOL/L (135-145); TOTAL CARBON DIOXIDE 26.9 MMOL/L (24-32); TOTAL PROTEIN 6.5 G/DL (6.4-8.2); eGFR 54 ML/MIN
[2018-04-15 06:41] VITALS: BP 124/75
[2018-04-15] MEDS ORDERED: HYDROcodone/acetaminophen 10/325mg tab PO PRN (07:20)
[2018-04-15] MEDS: pantoprazole 40mg Tablet.DR PO SCH (07:25)
[2018-04-15] MEDS: amoxicillin 250mg capsule PO SCH ×3 (07:25→21:08)
[2018-04-15] MEDS: enoxaparin 40mg/0.4ml syringe SQ SCH (07:25)
[2018-04-15] MEDS: lactobacillus rhamnosus 10,000 MMU CELLS/CAPSULE PO SCH ×2 (07:26→21:10)
[2018-04-15] MEDS: gabapentin 100mg capsule PO SCH ×3 (07:26→21:08)
[2018-04-15] MEDS: insulin Lispro (HumaLOG) vial - multi-dose SQ SCH ×3 (08:30→18:51)
[2018-04-15 09:38] LABS: ALANINE AMINOTRANSFERASE 424 U/L (12-78); ALBUMIN 2.4 G/DL (3.4-5.0); ALBUMIN/GLOBULIN RATIO 0.5 (1.1-1.5); ALKALINE PHOSPHATASE 91 IU/L (46-116); ASPARTATE AMINO TRANSFERASE 848 U/L (10-37); BILIRUBIN,DIRECT 0.1 MG/DL (0-0.3); BILIRUBIN,TOTAL 0.3 MG/DL (0.1-1.0); TOTAL PROTEIN 6.8 G/DL (6.4-8.2)
[2018-04-15 10:37] VITALS: BP 128/78
[2018-04-15] MEDS: oxyCODONE IR 5mg (immed. release) tablet PO PRN ×3 (12:13→21:10)
[2018-04-15] MEDS: normal saline 1000ml 1,000 ML IV SCH (15:23)
[2018-04-15 18:00] VITALS: BP 99/52
[2018-04-15] MEDS: sennosides 8.6mg tablet PO SCH (21:08)
[2018-04-15 22:00] VITALS: BP 124/76
[2018-04-16] MEDS: oxyCODONE IR 5mg (immed. release) tablet PO PRN ×2 (04:25→15:31)
[2018-04-16] MEDS: normal saline 1000ml 1,000 ML IV SCH (05:18)
[2018-04-16 06:00] VITALS: BP 144/85
[2018-04-16 06:09] LABS: BASOPHILS % (AUTO) 0.4 % (0-1); EOSINOPHILS # (AUTO) 0.1 X10'3 (0-0.9); EOSINOPHILS % (AUTO) 1.3 % (0-6); HEMATOCRIT 22.1 % (42.0-52.0); HEMOGLOBIN 7.5 g/dl (14.0-17.9); LYMPHOCYTES # (AUTO) 1.4 X10'3 (1.1-4.8); MEAN CORPUSCULAR HEMOGLOBIN 30.1 PG (27.0-31.0); MEAN CORPUSCULAR HGB CONC 34.1 % (33.0-36.5); MEAN CORPUSCULAR VOLUME 88.2 FL (78-98); MEAN PLATELET VOLUME 7.6 FL (7.4-10.4); MONOCYTES # (AUTO) 0.3 X10'3 (0-0.9); MONOCYTES % (AUTO) 6.5 % (2-12); NEUTROPHILS # (AUTO) 3.4 X10'3 (1.8-7.7); NEUTROPHILS % (AUTO) 63.8 % (42-75); PLATELET COUNT 148 X10'3 (140-440); WHITE BLOOD COUNT 5.2 X10'3 (4.5-11.0)
[2018-04-16 06:23] LABS: ALANINE AMINOTRANSFERASE 401 U/L (12-78); ALBUMIN 2.3 G/DL (3.4-5.0); ALBUMIN/GLOBULIN RATIO 0.5 (1.1-1.5); ALKALINE PHOSPHATASE 81 IU/L (46-116); ANION GAP 8 (8-16); ASPARTATE AMINO TRANSFERASE 495 U/L (10-37); BILIRUBIN,TOTAL 0.3 MG/DL (0.1-1.0); BLOOD UREA NITROGEN 19 MG/DL (7-18); BUN/CREATININE RATIO 17.6 (5.4-32.0); CALCIUM 7.8 MG/DL (8.5-10.1); CHLORIDE 101 MMOL/L (99-107); CREATININE 1.08 MG/DL (0.60-1.10); GLUCOSE 94 MG/DL (70-104); SODIUM 136 MMOL/L (135-145); TOTAL CARBON DIOXIDE 27.4 MMOL/L (24-32); TOTAL PROTEIN 6.5 G/DL (6.4-8.2); eGFR 70 ML/MIN
[2018-04-16] MEDS: morphine 4 MG/ML inj SYRINge IV PRN ×4 (07:29→20:31)
[2018-04-16] MEDS: lactobacillus rhamnosus 10,000 MMU CELLS/CAPSULE PO SCH ×2 (07:30→19:28)
[2018-04-16] MEDS: amoxicillin 250mg capsule PO SCH ×3 (07:30→20:04)
[2018-04-16] MEDS: pantoprazole 40mg Tablet.DR PO SCH (07:30)
[2018-04-16] MEDS: enoxaparin 40mg/0.4ml syringe SQ SCH (07:30)
[2018-04-16] MEDS: gabapentin 100mg capsule PO SCH ×3 (07:30→20:04)
[2018-04-16] MEDS: ferrous gluconate 324mg tablet PO SCH ×2 (09:06→19:28)
[2018-04-16] MEDS: insulin Lispro (HumaLOG) vial - multi-dose SQ SCH ×3 (09:08→19:58)
[2018-04-16 10:00] VITALS: BP 130/64
[2018-04-16] MEDS: metoprolol tartrate 25mg tablet PO SCH ×2 (17:09→19:28)
[2018-04-16 18:00] VITALS: BP 184/98
[2018-04-16] MEDS: sennosides 8.6mg tablet PO SCH (20:04)
[2018-04-16 22:00] VITALS: BP 107/61
[2018-04-17] MEDS: oxyCODONE IR 5mg (immed. release) tablet PO PRN ×3 (00:41→20:05)
[2018-04-17 06:00] VITALS: BP 135/76
[2018-04-17] MEDS: pantoprazole 40mg Tablet.DR PO SCH (07:36)
[2018-04-17] MEDS: metoprolol tartrate 25mg tablet PO SCH ×2 (07:36→20:04)
[2018-04-17] MEDS: amoxicillin 250mg capsule PO SCH ×4 (07:36→20:04)
[2018-04-17] MEDS: lactobacillus rhamnosus 10,000 MMU CELLS/CAPSULE PO SCH ×2 (07:36→20:04)
[2018-04-17] MEDS: gabapentin 100mg capsule PO SCH ×4 (07:36→20:04)
[2018-04-17] MEDS: ferrous gluconate 324mg tablet PO SCH ×2 (07:36→20:04)
[2018-04-17] MEDS: enoxaparin 40mg/0.4ml syringe SQ SCH (07:37)
[2018-04-17 07:40] LABS: ALANINE AMINOTRANSFERASE 404 U/L (12-78); ALBUMIN 2.3 G/DL (3.4-5.0); ALBUMIN/GLOBULIN RATIO 0.5 (1.1-1.5); ALKALINE PHOSPHATASE 89 IU/L (46-116); ANION GAP 12 (8-16); ASPARTATE AMINO TRANSFERASE 393 U/L (10-37); BILIRUBIN,TOTAL 0.4 MG/DL (0.1-1.0); BLOOD UREA NITROGEN 14 MG/DL (7-18); BUN/CREATININE RATIO 10.9 (5.4-32.0); CALCIUM 8.2 MG/DL (8.5-10.1); CHLORIDE 98 MMOL/L (99-107); CREATININE 1.29 MG/DL (0.60-1.10); GLUCOSE 178 MG/DL (70-104); SODIUM 134 MMOL/L (135-145); TOTAL CARBON DIOXIDE 23.6 MMOL/L (24-32); TOTAL PROTEIN 6.7 G/DL (6.4-8.2); eGFR 57 ML/MIN
[2018-04-17 07:43] LABS: POTASSIUM 4.6 MMOL/L (3.5-5.1)
[2018-04-17 08:24] LABS: BASOPHILS % (AUTO) 0.2 % (0-1); EOSINOPHILS % (AUTO) 1.2 % (0-6); HEMOGLOBIN 7.4 g/dl (14.0-17.9); LYMPHOCYTES # (AUTO) 1.1 X10'3 (1.1-4.8); LYMPHOCYTES % (AUTO) 26.6 % (21-51); MEAN CORPUSCULAR HEMOGLOBIN 29.9 PG (27.0-31.0); MEAN CORPUSCULAR HGB CONC 34.8 % (33.0-36.5); MEAN CORPUSCULAR VOLUME 86.1 FL (78-98); MEAN PLATELET VOLUME 7.3 FL (7.4-10.4); MONOCYTES # (AUTO) 0.3 X10'3 (0-0.9); MONOCYTES % (AUTO) 7.8 % (2-12); NEUTROPHILS # (AUTO) 2.6 X10'3 (1.8-7.7); NEUTROPHILS % (AUTO) 64.2 % (42-75); PLATELET COUNT 172 X10'3 (140-440); RED BLOOD COUNT 2.48 X10'6 (4.70-6.10); RED CELL DISTRIBUTION WIDTH 13.8 % (11.5-14.5)
[2018-04-17 08:28] LABS: HEMATOCRIT 21.3 % (42.0-52.0)
[2018-04-17] MEDS: insulin Lispro (HumaLOG) vial - multi-dose SQ SCH ×2 (09:00→18:46)
[2018-04-17 10:00] VITALS: BP 114/66
[2018-04-17 18:00] VITALS: BP 154/80
[2018-04-17 18:38] LABS: CLARITY,URINE CLEAR (Clear); COLOR,URINE YELLOW (Yellow); GLUCOSE, URINE NEGATIVE (Neg); KETONES,URINE NEGATIVE (Neg); LEUKOCYTE ESTERASE ,URINE NEGATIVE (Neg); NITRITES, URINE NEGATIVE (Neg); OCCULT BLOOD,URINE MODERATE (Neg); PROTEIN,URINE TRACE mg/dl (Neg); UROBILINOGEN,URINE 0.2 E.U/dL (0.2-1.0)
[2018-04-17 18:41] LABS: UA COLLECTION TYPE URINAL
[2018-04-17 18:46] LABS: BACTERIA,URINE NONE SEEN /HPF (Neg); RBC,URINE 0-2 /HPF (0-2); SQUAMOUS EPITHELIAL CELL,UR FEW /LPF (FEW); WBC,URINE 0-4 /HPF (0-4)
[2018-04-17] MEDS: sennosides 8.6mg tablet PO SCH (20:04)
[2018-04-17 21:56] VITALS: BP 114/69
[2018-04-18] MEDS: oxyCODONE IR 5mg (immed. release) tablet PO PRN ×3 (00:33→18:56)
[2018-04-18] MEDS: morphine 4 MG/ML inj SYRINge IV PRN (02:18)
[2018-04-18 07:41] VITALS: BP 155/81
[2018-04-18] MEDS: ferrous gluconate 324mg tablet PO SCH ×2 (07:54→20:21)
[2018-04-18] MEDS: lactobacillus rhamnosus 10,000 MMU CELLS/CAPSULE PO SCH ×2 (07:54→20:21)
[2018-04-18] MEDS: pantoprazole 40mg Tablet.DR PO SCH (07:54)
[2018-04-18] MEDS: metoprolol tartrate 25mg tablet PO SCH ×2 (07:54→20:21)
[2018-04-18] MEDS: amoxicillin 250mg capsule PO SCH ×3 (07:54→20:21)
[2018-04-18] MEDS: gabapentin 100mg capsule PO SCH ×3 (07:54→20:21)
[2018-04-18] MEDS: tamsulosin 0.4mg capsule PO SCH (09:06)
[2018-04-18 09:51] LABS: BASOPHILS % (AUTO) 0.4 % (0-1); EOSINOPHILS # (AUTO) 0.1 X10'3 (0-0.9); EOSINOPHILS % (AUTO) 1.4 % (0-6); HEMOGLOBIN 7.9 g/dl (14.0-17.9); LYMPHOCYTES # (AUTO) 1.1 X10'3 (1.1-4.8); LYMPHOCYTES % (AUTO) 24.6 % (21-51); MEAN CORPUSCULAR HEMOGLOBIN 30.3 PG (27.0-31.0); MEAN CORPUSCULAR HGB CONC 34.6 % (33.0-36.5); MEAN CORPUSCULAR VOLUME 87.7 FL (78-98); MEAN PLATELET VOLUME 6.5 FL (7.4-10.4); MONOCYTES # (AUTO) 0.4 X10'3 (0-0.9); MONOCYTES % (AUTO) 9.5 % (2-12); NEUTROPHILS # (AUTO) 2.8 X10'3 (1.8-7.7); NEUTROPHILS % (AUTO) 64.1 % (42-75); PLATELET COUNT 179 X10'3 (140-440); RED BLOOD COUNT 2.62 X10'6 (4.70-6.10); RED CELL DISTRIBUTION WIDTH 13.9 % (11.5-14.5); WHITE BLOOD COUNT 4.4 X10'3 (4.5-11.0)
[2018-04-18 10:00] VITALS: BP 140/74
[2018-04-18 10:03] LABS: ALBUMIN 2.1 G/DL (3.4-5.0); ANION GAP 5 (8-16); BLOOD UREA NITROGEN 13 MG/DL (7-18); BUN/CREATININE RATIO 12.6 (5.4-32.0); CALCIUM 7.9 MG/DL (8.5-10.1); CHLORIDE 96 MMOL/L (99-107); CREATININE 1.03 MG/DL (0.60-1.10); GLUCOSE 226 MG/DL (70-104); POTASSIUM 4.1 MMOL/L (3.5-5.1); SODIUM 135 MMOL/L (135-145); TOTAL CARBON DIOXIDE 33.9 MMOL/L (24-32); eGFR 74 ML/MIN
[2018-04-18] MEDS: insulin Lispro (HumaLOG) vial - multi-dose SQ SCH ×3 (10:35→18:52)
[2018-04-18 18:27] VITALS: BP_SYST 129; BP_SYST 155; BP_DIAS 71; BP_DIAS 81
[2018-04-18] MEDS: sennosides 8.6mg tablet PO SCH (20:19)
[2018-04-18 22:21] VITALS: BP 146/76
[2018-04-19] MEDS: oxyCODONE IR 5mg (immed. release) tablet PO PRN ×2 (00:47→05:43)
[2018-04-19 05:50] LABS: BASOPHILS % (AUTO) 0.4 % (0-1); EOSINOPHILS # (AUTO) 0.1 X10'3 (0-0.9); HEMATOCRIT 24.3 % (42.0-52.0); HEMOGLOBIN 8.3 g/dl (14.0-17.9); LYMPHOCYTES # (AUTO) 1.5 X10'3 (1.1-4.8); LYMPHOCYTES % (AUTO) 31.5 % (21-51); MEAN CORPUSCULAR HEMOGLOBIN 29.8 PG (27.0-31.0); MEAN CORPUSCULAR VOLUME 87.5 FL (78-98); MEAN PLATELET VOLUME 6.7 FL (7.4-10.4); MONOCYTES # (AUTO) 0.5 X10'3 (0-0.9); NEUTROPHILS # (AUTO) 2.7 X10'3 (1.8-7.7); NEUTROPHILS % (AUTO) 56.1 % (42-75); PLATELET COUNT 207 X10'3 (140-440); RED BLOOD COUNT 2.78 X10'6 (4.70-6.10); RED CELL DISTRIBUTION WIDTH 13.9 % (11.5-14.5); WHITE BLOOD COUNT 4.9 X10'3 (4.5-11.0)
[2018-04-19 06:00] VITALS: BP 158/84
[2018-04-19 06:03] LABS: ALANINE AMINOTRANSFERASE 290 U/L (12-78); ALBUMIN 2.2 G/DL (3.4-5.0); ALBUMIN/GLOBULIN RATIO 0.5 (1.1-1.5); ALKALINE PHOSPHATASE 84 IU/L (46-116); ANION GAP 3 (8-16); ASPARTATE AMINO TRANSFERASE 138 U/L (10-37); BILIRUBIN,TOTAL 0.5 MG/DL (0.1-1.0); BLOOD UREA NITROGEN 10 MG/DL (7-18); BUN/CREATININE RATIO 9.9 (5.4-32.0); CALCIUM 8.4 MG/DL (8.5-10.1); CHLORIDE 99 MMOL/L (99-107); CREATININE 1.01 MG/DL (0.60-1.10); GLUCOSE 174 MG/DL (70-104); SODIUM 139 MMOL/L (135-145); TOTAL CARBON DIOXIDE 37.2 MMOL/L (24-32); TOTAL PROTEIN 6.5 G/DL (6.4-8.2); eGFR 76 ML/MIN
[2018-04-19] MEDS: ferrous gluconate 324mg tablet PO SCH (07:24)
[2018-04-19] MEDS: amoxicillin 250mg capsule PO SCH ×2 (07:24→13:12)
[2018-04-19] MEDS: tamsulosin 0.4mg capsule PO SCH (07:24)
[2018-04-19] MEDS: pantoprazole 40mg Tablet.DR PO SCH (07:24)
[2018-04-19] MEDS: lactobacillus rhamnosus 10,000 MMU CELLS/CAPSULE PO SCH (07:24)
[2018-04-19] MEDS: metoprolol tartrate 25mg tablet PO SCH (07:24)
[2018-04-19] MEDS: gabapentin 100mg capsule PO SCH ×2 (07:24→13:12)
[2018-04-19] MEDS: insulin Lispro (HumaLOG) vial - multi-dose SQ SCH (09:32)
[2018-04-19 10:00] VITALS: BP 128/75
[2018-04-19] MEDS ORDERED: TAMS0.4C32 PO (11:24)
[2018-04-19] MEDS ORDERED: GABA100C PO (11:24)
[2018-04-19] MEDS ORDERED: METO25TA6 PO (11:24)
[2018-04-19] MEDS ORDERED: FERGLU300T PO (11:24)
[2018-04-19] MEDS ORDERED: AMOX500C2 PO (11:48)
== END 2018-04-19 15:05 | disposition home health service (06) | DRG 301 ==
LOC: ER 16:16 → ED HOLD 19:52 → ORTHO 4S 21:20 → PAS IN 04-13 12:00 → ORTHO 4S 04-13 13:35
PROVIDERS: ADMIT Internal Medicine; ATTEND Family Medicine
PROC: 0SRS0J9 Replacement of Left Hip Joint, Femoral Surface with Synthetic Substitute, Cemented, Open Approach (ICD-10-PCS; principal; 2018-04-13 12:15)
DX: S72.002A Fracture of unspecified part of neck of left femur, initial encounter for closed fracture (principal); K72.00 Acute and subacute hepatic failure without coma; E43 Unspecified severe protein-calorie malnutrition; N17.9 Acute kidney failure, unspecified; E86.0 Dehydration; E11.9 Type 2 diabetes mellitus without complications; F17.210 Nicotine dependence, cigarettes, uncomplicated; D64.9 Anemia, unspecified; S61.002A Unspecified open wound of left thumb without damage to nail, initial encounter; E87.1 Hypo-osmolality and hyponatremia; E87.5 Hyperkalemia; F12.90 Cannabis use, unspecified, uncomplicated; I10 Essential (primary) hypertension; K27.9 Peptic ulcer, site unspecified, unspecified as acute or chronic, without hemorrhage or perforation; S68.021A Partial traumatic metacarpophalangeal amputation of right thumb, initial encounter; Z96.612 Presence of left artificial shoulder joint; W01.0XXA Fall on same level from slipping, tripping and stumbling without subsequent striking against object, initial encounter; Y93.01 Activity, walking, marching and hiking; Y92.89 Other specified places as the place of occurrence of the external cause; Z88.8 Allergy status to other drugs, medicaments and biological substances; Y99.8 Other external cause status; Z68.27 Body mass index [BMI] 27.0-27.9, adult; Z79.4 Long term (current) use of insulin; Z87.11 Personal history of peptic ulcer disease
CPT/HCPCS: 36415; 71045; 73502; 80048; 80053; 80076; 81001; 82948; 83605; 83735; 84132; 84145; 84484; 85025; 85610; 87040; 87070; 93005; 96361; 96374; 96375; 97110; 97116; 97161; 97530; 99285; A4315; A4344; A4353; A4615; A4649; A6196; A6212; A6213; A6222; A6253; A6255; A6258; A6446; A6449; A6455; A7000; C1713; C1758; C1776; J0690; J1644; J1650; J2250; J2270; J2405; J2704; J3010; J3370; J7030; J7120; Q0163

== ENCOUNTER 2018-04-20 15:18 | Emergency (ER) | payer MEDICAID ==
[~2018-04-20] VITALS: Ht 170.2 cm; Wt 65.5 kg
[~2018-04-20 15:18] MED LIST changes: -AMOX-100 PO; +AMOX500C2 PO; +FERGLU300T PO; -GABA-530 PO; +GABA100C PO; -IBUP-1985 PO; +METO25TA6 PO; +TAMS0.4C32 PO
[2018-04-20 15:24] VITALS: BP 118/64
[2018-04-20] MEDS ORDERED: vancomycin/NS 1 GM ADD-VANTAGE 250 ML IV ONE (16:05)
[2018-04-20 16:15] LABS: BASOPHILS % (AUTO) 0.4 % (0-1); EOSINOPHILS # (AUTO) 0.1 X10'3 (0-0.9); EOSINOPHILS % (AUTO) 1.5 % (0-6); HEMATOCRIT 24.3 % (42.0-52.0); HEMOGLOBIN 8.4 g/dl (14.0-17.9); LYMPHOCYTES # (AUTO) 1.6 X10'3 (1.1-4.8); LYMPHOCYTES % (AUTO) 25.2 % (21-51); MEAN CORPUSCULAR HEMOGLOBIN 29.8 PG (27.0-31.0); MEAN CORPUSCULAR HGB CONC 34.5 % (33.0-36.5); MEAN CORPUSCULAR VOLUME 86.3 FL (78-98); MEAN PLATELET VOLUME 6.3 FL (7.4-10.4); MONOCYTES # (AUTO) 0.6 X10'3 (0-0.9); MONOCYTES % (AUTO) 9.9 % (2-12); PLATELET COUNT 270 X10'3 (140-440); RED BLOOD COUNT 2.81 X10'6 (4.70-6.10); RED CELL DISTRIBUTION WIDTH 14.1 % (11.5-14.5); WHITE BLOOD COUNT 6.3 X10'3 (4.5-11.0)
[2018-04-20 16:24] LABS: PARTIAL THROMBOPLASTIN TIME 25 SECONDS (22-32); PROTHROMBIN TIME 10.4 SECONDS (9.0-12.0)
[2018-04-20 16:37] LABS: ALANINE AMINOTRANSFERASE 186 U/L (12-78); ALBUMIN 2.5 G/DL (3.4-5.0); ALBUMIN/GLOBULIN RATIO 0.6 (1.1-1.5); ALKALINE PHOSPHATASE 84 IU/L (46-116); ANION GAP 7 (8-16); ASPARTATE AMINO TRANSFERASE 47 U/L (10-37); BILIRUBIN,TOTAL 0.4 MG/DL (0.1-1.0); BLOOD UREA NITROGEN 14 MG/DL (7-18); BUN/CREATININE RATIO 11.2 (5.4-32.0); C-REACTIVE PROTEIN 2.16 MG/DL (0.0-0.5); CALCIUM 8.4 MG/DL (8.5-10.1); CHLORIDE 98 MMOL/L (99-107); CREATININE 1.25 MG/DL (0.60-1.10); GLUCOSE 240 MG/DL (70-104); SODIUM 140 MMOL/L (135-145); TOTAL CARBON DIOXIDE 35.4 MMOL/L (24-32); eGFR 59 ML/MIN
== END 2018-04-20 16:59 | disposition home or self-care (01) ==
LOC: ER 15:18
DX: L03.012 Cellulitis of left finger (principal); D64.9 Anemia, unspecified; E11.9 Type 2 diabetes mellitus without complications; F12.90 Cannabis use, unspecified, uncomplicated; Z98.890 Other specified postprocedural states; Z90.89 Acquired absence of other organs; Z79.4 Long term (current) use of insulin; Z79.899 Other long term (current) drug therapy; Z88.6 Allergy status to analgesic agent
CPT/HCPCS: 36415; 73130; 80053; 83605; 85025; 85610; 85651; 85730; 86140; 87040; 99285; J3370

== ENCOUNTER 2018-04-22 09:56 | Day surgery (SDC) | payer MEDICAID ==
[2018-04-22] MEDS ORDERED: LIDOcaine 2% 5ml jelly ONE ×2 (11:27→11:58)
[2018-04-22] MEDS ORDERED: INSU100I31 (11:54)
[2018-04-22] MEDS ORDERED: BUPR150T8 PO (11:55)
[2018-04-22] MEDS ORDERED: CLAR500T PO (11:56)
[2018-04-22] MEDS ORDERED: PSYL3.4P5 PO (11:57)
== END 2018-04-22 12:30 | disposition home or self-care (01) ==
LOC: WOUND CARE 09:56
PROVIDERS: ATTEND Surgery
DX: T81.89XA Other complications of procedures, not elsewhere classified, initial encounter (principal); E11.65 Type 2 diabetes mellitus with hyperglycemia; E11.69 Type 2 diabetes mellitus with other specified complication; M86.8X8 Other osteomyelitis, other site; I10 Essential (primary) hypertension; J44.9 Chronic obstructive pulmonary disease, unspecified; F12.90 Cannabis use, unspecified, uncomplicated; F17.210 Nicotine dependence, cigarettes, uncomplicated; F41.9 Anxiety disorder, unspecified; Z90.89 Acquired absence of other organs; Z79.4 Long term (current) use of insulin; Z79.899 Other long term (current) drug therapy; Z68.27 Body mass index [BMI] 27.0-27.9, adult; Z96.612 Presence of left artificial shoulder joint; Z86.19 Personal history of other infectious and parasitic diseases; Y83.8 Other surgical procedures as the cause of abnormal reaction of the patient, or of later complication, without mention of misadventure at the time of the procedure
CPT/HCPCS: 11042; 36416; 82948; 87070; 87075; 87077; 87102; 87176; 87186; A6021; A6212; A6222

== ENCOUNTER 2018-04-26 09:17 | Day surgery (SDC) | payer MEDICAID ==
[~2018-04-26 09:17] MED LIST changes: +BUPR150T8 PO; +CLAR500T PO; -FERGLU300T PO; +INSU100I31 SUBCUT; -METO25TA6 PO; -NORT50CA; +NORT50CA PO; +PSYL3.4P5 PO
[2018-04-26] MEDS ORDERED: LIDOcaine 2% 5ml jelly ONE (09:57)
== END 2018-04-26 11:10 | disposition home or self-care (01) ==
LOC: WOUND CARE 09:17
PROVIDERS: ATTEND Surgery
DX: T81.89XD Other complications of procedures, not elsewhere classified, subsequent encounter (principal); E11.65 Type 2 diabetes mellitus with hyperglycemia; E11.69 Type 2 diabetes mellitus with other specified complication; M86.8X8 Other osteomyelitis, other site; I10 Essential (primary) hypertension; J44.9 Chronic obstructive pulmonary disease, unspecified; F12.90 Cannabis use, unspecified, uncomplicated; F17.210 Nicotine dependence, cigarettes, uncomplicated; F41.9 Anxiety disorder, unspecified; Z90.89 Acquired absence of other organs; Z79.4 Long term (current) use of insulin; Z79.899 Other long term (current) drug therapy; Z68.27 Body mass index [BMI] 27.0-27.9, adult; Z96.612 Presence of left artificial shoulder joint; Z86.19 Personal history of other infectious and parasitic diseases; Y83.8 Other surgical procedures as the cause of abnormal reaction of the patient, or of later complication, without mention of misadventure at the time of the procedure
CPT/HCPCS: 11044; 11047; 73502; A6021; A6222

== ENCOUNTER 2018-04-27 13:55 | Inpatient (IN) | payer MEDICAID ==
[~2018-04-27] VITALS: Ht 170.2 cm; Wt 58.0 kg
[2018-04-27] MEDS ORDERED: normal saline 1000ML IV soln IV ONE (14:40)
[2018-04-27 14:56] LABS: BASOPHILS % (AUTO) 0.3 % (0-1); EOSINOPHILS # (AUTO) 0.2 X10'3 (0-0.9); EOSINOPHILS % (AUTO) 2.3 % (0-6); HEMATOCRIT 29.5 % (42.0-52.0); HEMOGLOBIN 9.8 g/dl (14.0-17.9); LYMPHOCYTES # (AUTO) 2.3 X10'3 (1.1-4.8); LYMPHOCYTES % (AUTO) 31.7 % (21-51); MEAN CORPUSCULAR HEMOGLOBIN 28.8 PG (27.0-31.0); MEAN CORPUSCULAR HGB CONC 33.3 % (33.0-36.5); MEAN CORPUSCULAR VOLUME 86.4 FL (78-98); MEAN PLATELET VOLUME 6.8 FL (7.4-10.4); MONOCYTES # (AUTO) 0.5 X10'3 (0-0.9); MONOCYTES % (AUTO) 6.7 % (2-12); NEUTROPHILS # (AUTO) 4.3 X10'3 (1.8-7.7); PLATELET COUNT 245 X10'3 (140-440); RED BLOOD COUNT 3.41 X10'6 (4.70-6.10); RED CELL DISTRIBUTION WIDTH 14.4 % (11.5-14.5); WHITE BLOOD COUNT 7.4 X10'3 (4.5-11.0)
[2018-04-27 15:05] LABS: PARTIAL THROMBOPLASTIN TIME 25 SECONDS (22-32); PROTHROMBIN TIME 10.2 SECONDS (9.0-12.0)
[2018-04-27 15:14] LABS: ALANINE AMINOTRANSFERASE 48 U/L (12-78); ALBUMIN 2.9 G/DL (3.4-5.0); ALBUMIN/GLOBULIN RATIO 0.6 (1.1-1.5); ALKALINE PHOSPHATASE 100 IU/L (46-116); ANION GAP 8 (8-16); ASPARTATE AMINO TRANSFERASE 19 U/L (10-37); BILIRUBIN,TOTAL 0.3 MG/DL (0.1-1.0); BLOOD UREA NITROGEN 34 MG/DL (7-18); BUN/CREATININE RATIO 23.6 (5.4-32.0); CALCIUM 8.9 MG/DL (8.5-10.1); CHLORIDE 101 MMOL/L (99-107); CREATININE 1.44 MG/DL (0.60-1.10); GLUCOSE 242 MG/DL (70-104); POTASSIUM 4.7 MMOL/L (3.5-5.1); SODIUM 138 MMOL/L (135-145); TOTAL CARBON DIOXIDE 28.6 MMOL/L (24-32); TOTAL PROTEIN 7.9 G/DL (6.4-8.2); eGFR 50 ML/MIN
[2018-04-27] MEDS ORDERED: acetaminophen 325mg tablet PO PRN (16:10)
[2018-04-27] MEDS ORDERED: magnesium hydroxide 30ml (MOM) UD suspension PO PRN (16:10)
[2018-04-27] MEDS ORDERED: morphine 4 MG/ML inj SYRINge IV PRN (16:10)
[2018-04-27] MEDS ORDERED: mag hydrox/Alum hydrox/simeth 30ml oral suspension PO PRN (16:10)
[2018-04-27] MEDS ORDERED: ondansetron/PF 4mg/2ml inj IV PRN (16:10)
[2018-04-27] MEDS ORDERED: HYDROcodone/acetaminophen 5mg/325mg tablet PO PRN (16:10)
[2018-04-27 17:49] LABS: TROPONIN I < 0.04 NG/ML (0.0-0.05)
[2018-04-27 18:50] VITALS: BP 130/78
[2018-04-27] MEDS: dextrose 5%-1/2 normal saline 1,000 ML IV SCH (19:17)
[2018-04-27] MEDS: HYDROcodone/acetaminophen 10/325mg tab PO PRN (19:33)
[2018-04-27] MEDS: docusate sod 100mg capsule PO SCH (20:12)
[2018-04-28] VITALS (7 sets, daily range): BP systolic 82–157; BP diastolic 50–86
[2018-04-28] MEDS: dextrose 5%-1/2 normal saline 1,000 ML IV SCH ×4 (02:51→22:39)
[2018-04-28] MEDS ORDERED: MESSAGE TO PHARMACY PO ONE (04:05)
[2018-04-28] MEDS ORDERED: dextrose 50%-water 50ml dispensing syringe IV PRN ×2 (04:05)
[2018-04-28] MEDS ORDERED: glucagon, human recombinant 1mg kit SUBCUT PRN (04:05)
[2018-04-28 05:34] LABS: ALBUMIN 2.6 G/DL (3.4-5.0); ANION GAP 8 (8-16); BLOOD UREA NITROGEN 19 MG/DL (7-18); BUN/CREATININE RATIO 17.6 (5.4-32.0); CALCIUM 8.2 MG/DL (8.5-10.1); CHLORIDE 102 MMOL/L (99-107); CREATININE 1.08 MG/DL (0.60-1.10); GLUCOSE 273 MG/DL (70-104); SODIUM 137 MMOL/L (135-145); eGFR 70 ML/MIN
[2018-04-28 05:54] LABS: POTASSIUM 4.6 MMOL/L (3.5-5.1)
[2018-04-28 05:56] LABS: BASOPHILS % (AUTO) 0.2 % (0-1); EOSINOPHILS # (AUTO) 0.2 X10'3 (0-0.9); EOSINOPHILS % (AUTO) 3.1 % (0-6); HEMATOCRIT 26.9 % (42.0-52.0); LYMPHOCYTES # (AUTO) 1.7 X10'3 (1.1-4.8); LYMPHOCYTES % (AUTO) 31.3 % (21-51); MEAN CORPUSCULAR HEMOGLOBIN 28.9 PG (27.0-31.0); MEAN CORPUSCULAR HGB CONC 33.6 % (33.0-36.5); MEAN CORPUSCULAR VOLUME 85.9 FL (78-98); MEAN PLATELET VOLUME 7.2 FL (7.4-10.4); MONOCYTES # (AUTO) 0.3 X10'3 (0-0.9); MONOCYTES % (AUTO) 6.3 % (2-12); NEUTROPHILS # (AUTO) 3.2 X10'3 (1.8-7.7); NEUTROPHILS % (AUTO) 59.1 % (42-75); PLATELET COUNT 182 X10'3 (140-440); RED BLOOD COUNT 3.13 X10'6 (4.70-6.10); RED CELL DISTRIBUTION WIDTH 14.3 % (11.5-14.5); WHITE BLOOD COUNT 5.4 X10'3 (4.5-11.0)
[2018-04-28] MEDS: morphine 4 MG/ML inj SYRINge IV PRN (07:10)
[2018-04-28] MEDS: docusate sod 100mg capsule PO SCH ×2 (07:15→19:06)
[2018-04-28] MEDS: enoxaparin 40mg/0.4ml syringe SUBCUT SCH (07:16)
[2018-04-28] MEDS: insulin Lispro (HumaLOG) vial - multi-dose SQ SCH ×3 (08:47→19:11)
[2018-04-28] MEDS ORDERED: GABA-530 PO (09:42)
[2018-04-28] MEDS ORDERED: METO25TA6 PO (09:42)
[2018-04-28] MEDS ORDERED: FERR324T PO (09:42)
[2018-04-28] MEDS ORDERED: LANS15CA18 PO (09:42)
[2018-04-28] MEDS ORDERED: TAMS0.4C32 PO (09:42)
[2018-04-28] MEDS ORDERED: normal saline 1000ml 1,000 ML IV ONE (09:50)
[2018-04-28] MEDS: HYDROcodone/acetaminophen 10/325mg tab PO PRN (16:39)
[2018-04-28] MEDS: ferrous gluconate 324mg tablet PO SCH (19:06)
[2018-04-28] MEDS: metoprolol tartrate 25mg tablet PO SCH (19:06)
[2018-04-28] MEDS: insulin glargine (Lantus) pen - multi-dose SQ SCH (21:19)
[2018-04-28] MEDS: nortriptyline 25mg capsule PO SCH (21:19)
[2018-04-28] MEDS: gabapentin 100mg capsule PO SCH (21:20)
[2018-04-29] VITALS: BP 124/75
[2018-04-29] MEDS: HYDROcodone/acetaminophen 10/325mg tab PO PRN ×2 (02:01→16:05)
[2018-04-29 05:45] LABS: BASOPHILS % (AUTO) 0.4 % (0-1); EOSINOPHILS # (AUTO) 0.2 X10'3 (0-0.9); EOSINOPHILS % (AUTO) 2.6 % (0-6); HEMATOCRIT 29.1 % (42.0-52.0); HEMOGLOBIN 9.6 g/dl (14.0-17.9); LYMPHOCYTES # (AUTO) 1.9 X10'3 (1.1-4.8); LYMPHOCYTES % (AUTO) 32.3 % (21-51); MEAN CORPUSCULAR HEMOGLOBIN 28.3 PG (27.0-31.0); MEAN CORPUSCULAR HGB CONC 33.2 % (33.0-36.5); MEAN CORPUSCULAR VOLUME 85.3 FL (78-98); MEAN PLATELET VOLUME 6.9 FL (7.4-10.4); MONOCYTES # (AUTO) 0.3 X10'3 (0-0.9); NEUTROPHILS # (AUTO) 3.4 X10'3 (1.8-7.7); NEUTROPHILS % (AUTO) 58.7 % (42-75); PLATELET COUNT 192 X10'3 (140-440); RED BLOOD COUNT 3.41 X10'6 (4.70-6.10); RED CELL DISTRIBUTION WIDTH 14.1 % (11.5-14.5); WHITE BLOOD COUNT 5.8 X10'3 (4.5-11.0)
[2018-04-29 06:21] LABS: ALBUMIN 2.6 G/DL (3.4-5.0); ANION GAP 7 (8-16); BLOOD UREA NITROGEN 18 MG/DL (7-18); BUN/CREATININE RATIO 18.8 (5.4-32.0); CALCIUM 8.4 MG/DL (8.5-10.1); CHLORIDE 102 MMOL/L (99-107); CREATININE 0.96 MG/DL (0.60-1.10); GLUCOSE 226 MG/DL (70-104); POTASSIUM 4.6 MMOL/L (3.5-5.1); SODIUM 136 MMOL/L (135-145); TOTAL CARBON DIOXIDE 26.7 MMOL/L (24-32); eGFR 80 ML/MIN
[2018-04-29 06:50] VITALS: BP 146/83
[2018-04-29] MEDS ORDERED: glimepiride 1 MG tablet PO SCH (08:00)
[2018-04-29] MEDS ORDERED: insulin glargine (Lantus) pen - multi-dose SQ SCH (08:00)
[2018-04-29] MEDS: pantoprazole 40mg Tablet.DR PO SCH (08:02)
[2018-04-29] MEDS: tamsulosin 0.4mg capsule PO SCH (08:02)
[2018-04-29] MEDS: gabapentin 100mg capsule PO SCH ×3 (08:02→21:33)
[2018-04-29] MEDS: metoprolol tartrate 25mg tablet PO SCH ×2 (08:02→19:06)
[2018-04-29] MEDS: docusate sod 100mg capsule PO SCH ×2 (08:02→19:11)
[2018-04-29] MEDS: ferrous gluconate 324mg tablet PO SCH ×2 (08:02→19:06)
[2018-04-29] MEDS: insulin Lispro (HumaLOG) vial - multi-dose SQ SCH ×3 (08:09→19:10)
[2018-04-29] MEDS: enoxaparin 40mg/0.4ml syringe SUBCUT SCH (08:17)
[2018-04-29 11:41] VITALS: BP_SYST 137; BP_SYST 66; BP_SYST 83; BP_DIAS 43; BP_DIAS 54; BP_DIAS 80
[2018-04-29] MEDS: dextrose 5%-1/2 normal saline 1,000 ML IV SCH ×2 (13:45→23:37)
[2018-04-29] MEDS: ceFAZolin 1GM/D5W- ADD-VANTAGE 50 ML IV SCH ×2 (16:05→23:37)
[2018-04-29 18:00] VITALS: BP 125/77
[2018-04-29] MEDS: nortriptyline 25mg capsule PO SCH (21:33)
[2018-04-29] MEDS: insulin glargine (Lantus) pen - multi-dose SQ SCH (21:37)
[2018-04-30] VITALS: BP_SYST 112; BP_SYST 65; BP_SYST 95; BP_DIAS 23; BP_DIAS 60; BP_DIAS 69
[2018-04-30] MEDS ORDERED: NORMAL SALINE IV ONE (00:40)
[2018-04-30] MEDS: HYDROcodone/acetaminophen 10/325mg tab PO PRN ×3 (02:27→16:27)
[2018-04-30 05:58] LABS: ALBUMIN 2.8 G/DL (3.4-5.0); ANION GAP 8 (8-16); BLOOD UREA NITROGEN 21 MG/DL (7-18); BUN/CREATININE RATIO 17.1 (5.4-32.0); CALCIUM 8.7 MG/DL (8.5-10.1); CHLORIDE 101 MMOL/L (99-107); CREATININE 1.23 MG/DL (0.60-1.10); GLUCOSE 179 MG/DL (70-104); POTASSIUM 4.5 MMOL/L (3.5-5.1); SODIUM 137 MMOL/L (135-145); TOTAL CARBON DIOXIDE 28.2 MMOL/L (24-32); eGFR 60 ML/MIN
[2018-04-30 06:21] LABS: BASOPHILS % (AUTO) 0.4 % (0-1); EOSINOPHILS # (AUTO) 0.1 X10'3 (0-0.9); EOSINOPHILS % (AUTO) 2.2 % (0-6); HEMATOCRIT 30.7 % (42.0-52.0); HEMOGLOBIN 10.3 g/dl (14.0-17.9); LYMPHOCYTES # (AUTO) 2.1 X10'3 (1.1-4.8); MEAN CORPUSCULAR HEMOGLOBIN 28.9 PG (27.0-31.0); MEAN CORPUSCULAR HGB CONC 33.5 % (33.0-36.5); MEAN CORPUSCULAR VOLUME 86.3 FL (78-98); MEAN PLATELET VOLUME 7.3 FL (7.4-10.4); MONOCYTES # (AUTO) 0.3 X10'3 (0-0.9); MONOCYTES % (AUTO) 5.3 % (2-12); NEUTROPHILS # (AUTO) 3.6 X10'3 (1.8-7.7); NEUTROPHILS % (AUTO) 58.1 % (42-75); PLATELET COUNT 201 X10'3 (140-440); RED BLOOD COUNT 3.56 X10'6 (4.70-6.10); RED CELL DISTRIBUTION WIDTH 13.2 % (11.5-14.5); WHITE BLOOD COUNT 6.1 X10'3 (4.5-11.0)
[2018-04-30 07:27] VITALS: BP 149/90
[2018-04-30] MEDS: docusate sod 100mg capsule PO SCH ×2 (08:00→19:38)
[2018-04-30] MEDS: insulin Lispro (HumaLOG) vial - multi-dose SQ SCH ×2 (09:22→19:46)
[2018-04-30] MEDS: ceFAZolin 1GM/D5W- ADD-VANTAGE 50 ML IV SCH ×3 (09:23→23:37)
[2018-04-30] MEDS: enoxaparin 40mg/0.4ml syringe SUBCUT SCH (09:23)
[2018-04-30] MEDS: gabapentin 100mg capsule PO SCH ×3 (09:24→21:26)
[2018-04-30] MEDS: metoprolol tartrate 25mg tablet PO SCH (09:24)
[2018-04-30] MEDS: tamsulosin 0.4mg capsule PO SCH (09:24)
[2018-04-30] MEDS: ferrous gluconate 324mg tablet PO SCH ×2 (09:24→19:38)
[2018-04-30] MEDS: pantoprazole 40mg Tablet.DR PO SCH (09:24)
[2018-04-30 09:42] VITALS: BP_SYST 101; BP_SYST 149; BP_SYST 62; BP_DIAS 39; BP_DIAS 66; BP_DIAS 90
[2018-04-30 11:00] VITALS: BP 110/74
[2018-04-30] MEDS: dextrose ORAL solution 15 GM/59 ML bottle PO PRN (12:30)
[2018-04-30] MEDS: dextrose 5%-1/2 normal saline 1,000 ML IV SCH (14:10)
[2018-04-30] MEDS: midodrine tablet 2.5 MG TABLET PO SCH ×2 (16:28→23:37)
[2018-04-30 18:00] VITALS: BP_SYST 117; BP_SYST 73; BP_SYST 85; BP_DIAS 44; BP_DIAS 56; BP_DIAS 75
[2018-04-30] MEDS: lactobacillus rhamnosus 10,000 MMU CELLS/CAPSULE PO SCH (19:38)
[2018-04-30] MEDS: insulin glargine (Lantus) pen - multi-dose SQ SCH (21:29)
[2018-04-30 23:35] VITALS: BP 114/75
[2018-05-01] VITALS (13 sets, daily range): BP systolic 80–155; BP diastolic 49–90
[2018-05-01] MEDS: HYDROcodone/acetaminophen 10/325mg tab PO PRN ×2 (02:47→07:21)
[2018-05-01 05:51] LABS: BASOPHILS % (AUTO) 0.5 % (0-1); EOSINOPHILS # (AUTO) 0.2 X10'3 (0-0.9); EOSINOPHILS % (AUTO) 2.7 % (0-6); HEMATOCRIT 27.7 % (42.0-52.0); HEMOGLOBIN 9.5 g/dl (14.0-17.9); LYMPHOCYTES # (AUTO) 1.9 X10'3 (1.1-4.8); LYMPHOCYTES % (AUTO) 31.3 % (21-51); MEAN CORPUSCULAR HEMOGLOBIN 28.6 PG (27.0-31.0); MEAN CORPUSCULAR HGB CONC 34.2 % (33.0-36.5); MEAN CORPUSCULAR VOLUME 83.4 FL (78-98); MEAN PLATELET VOLUME 6.9 FL (7.4-10.4); MONOCYTES # (AUTO) 0.4 X10'3 (0-0.9); MONOCYTES % (AUTO) 6.5 % (2-12); NEUTROPHILS # (AUTO) 3.7 X10'3 (1.8-7.7); PLATELET COUNT 191 X10'3 (140-440); RED BLOOD COUNT 3.32 X10'6 (4.70-6.10); RED CELL DISTRIBUTION WIDTH 14.1 % (11.5-14.5); WHITE BLOOD COUNT 6.2 X10'3 (4.5-11.0)
[2018-05-01 06:11] LABS: ALBUMIN 2.7 G/DL (3.4-5.0); ANION GAP 7 (8-16); BLOOD UREA NITROGEN 24 MG/DL (7-18); BUN/CREATININE RATIO 20.2 (5.4-32.0); CALCIUM 8.8 MG/DL (8.5-10.1); CHLORIDE 100 MMOL/L (99-107); CREATININE 1.19 MG/DL (0.60-1.10); GLUCOSE 134 MG/DL (70-104); POTASSIUM 4.4 MMOL/L (3.5-5.1); SODIUM 138 MMOL/L (135-145); TOTAL CARBON DIOXIDE 31.2 MMOL/L (24-32); eGFR 63 ML/MIN
[2018-05-01] MEDS: ferrous gluconate 324mg tablet PO SCH ×2 (07:21→19:27)
[2018-05-01] MEDS: gabapentin 100mg capsule PO SCH ×3 (07:21→21:05)
[2018-05-01] MEDS: midodrine tablet 2.5 MG TABLET PO SCH ×3 (07:21→23:14)
[2018-05-01] MEDS: docusate sod 100mg capsule PO SCH ×2 (07:21→19:45)
[2018-05-01] MEDS: pantoprazole 40mg Tablet.DR PO SCH (07:21)
[2018-05-01] MEDS: lactobacillus rhamnosus 10,000 MMU CELLS/CAPSULE PO SCH ×2 (07:21→19:26)
[2018-05-01] MEDS: enoxaparin 40mg/0.4ml syringe SUBCUT SCH (07:22)
[2018-05-01] MEDS: ceFAZolin 1GM/D5W- ADD-VANTAGE 50 ML IV SCH ×3 (07:22→23:14)
[2018-05-01] MEDS: insulin Lispro (HumaLOG) vial - multi-dose SQ SCH (09:06)
[2018-05-01] MEDS ORDERED: normal saline 1000ml 1,000 ML IV ONE (13:45)
[2018-05-01 16:29] LABS: MAGNESIUM 1.4 MG/DL (1.5-2.4); PHOSPHORUS 4.5 MG/DL (2.3-4.5)
[2018-05-01] MEDS: digoxin 125mcg (0.125mg) tablet PO SCH (16:39)
[2018-05-01] MEDS: morphine 4 MG/ML inj SYRINge IV PRN (16:39)
[2018-05-01] MEDS: hydrocortisone sod succ/PF 100mg/2ml inj. IV SCH ×2 (16:49→23:14)
[2018-05-01] MEDS ORDERED: potassium Cl 40MEQ/NS 500ml 500 ML IV PRN ×2 (18:20)
[2018-05-01] MEDS ORDERED: potassium Cl 20 mEq SR tablet PO PRN ×2 (18:20)
[2018-05-01] MEDS: insulin glargine (Lantus) pen - multi-dose SQ SCH (21:04)
[2018-05-02] VITALS: BP 137/79
[2018-05-02 07:00] VITALS: BP 117/87
[2018-05-02 07:08] LABS: BASOPHILS % (AUTO) 0 % (0-1); EOSINOPHILS % (AUTO) 0.1 % (0-6); HEMATOCRIT 37.8 % (42.0-52.0); HEMOGLOBIN 12.9 g/dl (14.0-17.9); LYMPHOCYTES # (AUTO) 1.5 X10'3 (1.1-4.8); LYMPHOCYTES % (AUTO) 23.6 % (21-51); MEAN CORPUSCULAR HEMOGLOBIN 28.7 PG (27.0-31.0); MEAN CORPUSCULAR VOLUME 84.4 FL (78-98); MEAN PLATELET VOLUME 7.2 FL (7.4-10.4); MONOCYTES # (AUTO) 0.2 X10'3 (0-0.9); MONOCYTES % (AUTO) 3.6 % (2-12); NEUTROPHILS # (AUTO) 4.5 X10'3 (1.8-7.7); NEUTROPHILS % (AUTO) 72.7 % (42-75); PLATELET COUNT 206 X10'3 (140-440); RED BLOOD COUNT 4.48 X10'6 (4.70-6.10); RED CELL DISTRIBUTION WIDTH 14.1 % (11.5-14.5); WHITE BLOOD COUNT 6.3 X10'3 (4.5-11.0)
[2018-05-02 07:29] LABS: ALBUMIN 2.8 G/DL (3.4-5.0); ANION GAP 8 (8-16); BLOOD UREA NITROGEN 33 MG/DL (7-18); BUN/CREATININE RATIO 29.7 (5.4-32.0); CALCIUM 9.3 MG/DL (8.5-10.1); CHLORIDE 100 MMOL/L (99-107); CREATININE 1.11 MG/DL (0.60-1.10); GLUCOSE 222 MG/DL (70-104); MAGNESIUM 1.6 MG/DL (1.5-2.4); POTASSIUM 4.3 MMOL/L (3.5-5.1); SODIUM 139 MMOL/L (135-145); TOTAL CARBON DIOXIDE 30.6 MMOL/L (24-32); eGFR 68 ML/MIN
[2018-05-02] MEDS: docusate sod 100mg capsule PO SCH ×2 (08:00→19:23)
[2018-05-02] MEDS: hydrocortisone sod succ/PF 100mg/2ml inj. IV SCH ×3 (09:11→23:42)
[2018-05-02] MEDS: enoxaparin 40mg/0.4ml syringe SUBCUT SCH (09:12)
[2018-05-02] MEDS: lactobacillus rhamnosus 10,000 MMU CELLS/CAPSULE PO SCH ×2 (09:13→19:23)
[2018-05-02] MEDS: gabapentin 100mg capsule PO SCH ×3 (09:13→21:01)
[2018-05-02] MEDS: ferrous gluconate 324mg tablet PO SCH ×2 (09:13→19:23)
[2018-05-02] MEDS: digoxin 125mcg (0.125mg) tablet PO SCH (09:13)
[2018-05-02] MEDS: midodrine tablet 2.5 MG TABLET PO SCH ×3 (09:13→23:42)
[2018-05-02] MEDS: ceFAZolin 1GM/D5W- ADD-VANTAGE 50 ML IV SCH (09:14)
[2018-05-02] MEDS: insulin Lispro (HumaLOG) vial - multi-dose SQ SCH ×3 (09:30→18:35)
[2018-05-02] MEDS: pantoprazole 40mg Tablet.DR PO SCH (09:32)
[2018-05-02] MEDS: dextrose ORAL solution 15 GM/59 ML bottle PO PRN (12:15)
[2018-05-02 12:38] VITALS: BP 153/94
[2018-05-02 15:00] VITALS: BP_SYST 102; BP_SYST 153; BP_SYST 89; BP_DIAS 60; BP_DIAS 69; BP_DIAS 94
[2018-05-02] MEDS: ampicillin inj 1 GM in normal saline 100ml IV soln 100 ML IV SCH ×2 (16:37→23:42)
[2018-05-02 19:00] VITALS: BP_SYST 103; BP_SYST 110; BP_SYST 152; BP_DIAS 67; BP_DIAS 78; BP_DIAS 88
[2018-05-02] MEDS: ciprofloxacin/D5W 200mg/100mL 100 ML IV SCH (19:23)
[2018-05-02] MEDS: insulin glargine (Lantus) pen - multi-dose SQ SCH (21:05)
[2018-05-03] VITALS (7 sets, daily range): BP systolic 85–161; BP diastolic 52–99
[2018-05-03] MEDS: zolpidem 5mg tablet PO PRN (02:36)
[2018-05-03 07:30] LABS: MAGNESIUM 1.7 MG/DL (1.5-2.4); POTASSIUM 3.9 MMOL/L (3.5-5.1)
[2018-05-03] MEDS: midodrine tablet 2.5 MG TABLET PO SCH ×3 (08:00→23:08)
[2018-05-03] MEDS: ampicillin inj 1 GM in normal saline 100ml IV soln 100 ML IV SCH ×3 (08:55→23:08)
[2018-05-03] MEDS: hydrocortisone sod succ/PF 100mg/2ml inj. IV SCH ×3 (08:55→23:08)
[2018-05-03] MEDS: gabapentin 100mg capsule PO SCH ×3 (08:56→21:30)
[2018-05-03] MEDS: lactobacillus rhamnosus 10,000 MMU CELLS/CAPSULE PO SCH ×2 (08:56→19:09)
[2018-05-03] MEDS: docusate sod 100mg capsule PO SCH ×2 (08:56→19:10)
[2018-05-03] MEDS: pantoprazole 40mg Tablet.DR PO SCH (08:56)
[2018-05-03] MEDS: digoxin 125mcg (0.125mg) tablet PO SCH (08:57)
[2018-05-03] MEDS: ferrous gluconate 324mg tablet PO SCH ×2 (08:57→19:10)
[2018-05-03] MEDS: insulin Lispro (HumaLOG) vial - multi-dose SQ SCH ×2 (09:02→18:36)
[2018-05-03] MEDS: ciprofloxacin/D5W 200mg/100mL 100 ML IV SCH ×2 (09:02→19:09)
[2018-05-03] MEDS: enoxaparin 40mg/0.4ml syringe SUBCUT SCH (11:06)
[2018-05-03] MEDS ORDERED: cephalexin 500mg capsule PO SCH (16:00)
[2018-05-03] MEDS: insulin glargine (Lantus) pen - multi-dose SQ SCH (21:34)
[2018-05-04] VITALS: BP 147/96
[2018-05-04 06:02] LABS: MAGNESIUM 1.7 MG/DL (1.5-2.4); POTASSIUM 3.7 MMOL/L (3.5-5.1)
[2018-05-04 07:00] VITALS: BP_SYST 141; BP_SYST 83; BP_SYST 89; BP_DIAS 45; BP_DIAS 70; BP_DIAS 86
[2018-05-04] MEDS: docusate sod 100mg capsule PO SCH ×2 (08:00→20:00)
[2018-05-04] MEDS: insulin Lispro (HumaLOG) vial - multi-dose SQ SCH ×2 (09:15→19:01)
[2018-05-04] MEDS: ampicillin inj 1 GM in normal saline 100ml IV soln 100 ML IV SCH ×2 (09:18→17:30)
[2018-05-04] MEDS: hydrocortisone sod succ/PF 100mg/2ml inj. IV SCH ×2 (09:19→17:27)
[2018-05-04] MEDS: enoxaparin 40mg/0.4ml syringe SUBCUT SCH (09:24)
[2018-05-04] MEDS: ferrous gluconate 324mg tablet PO SCH ×2 (09:27→20:49)
[2018-05-04] MEDS: pantoprazole 40mg Tablet.DR PO SCH (09:28)
[2018-05-04] MEDS: gabapentin 100mg capsule PO SCH ×3 (09:28→20:48)
[2018-05-04] MEDS: lactobacillus rhamnosus 10,000 MMU CELLS/CAPSULE PO SCH ×2 (09:29→20:48)
[2018-05-04] MEDS: digoxin 125mcg (0.125mg) tablet PO SCH (09:30)
[2018-05-04] MEDS: midodrine tablet 2.5 MG TABLET PO SCH ×3 (09:32→20:49)
[2018-05-04] MEDS: ciprofloxacin/D5W 200mg/100mL 100 ML IV SCH ×2 (10:15→20:48)
[2018-05-04 12:22] VITALS: BP 158/93
[2018-05-04 19:30] VITALS: BP_SYST 123; BP_SYST 146; BP_SYST 99; BP_DIAS 68; BP_DIAS 81; BP_DIAS 94
[2018-05-04] MEDS: insulin glargine (Lantus) pen - multi-dose SQ SCH (21:46)
[2018-05-05] VITALS (8 sets, daily range): BP systolic 80–172; BP diastolic 50–102
[2018-05-05] MEDS: hydrocortisone sod succ/PF 100mg/2ml inj. IV SCH ×3 (00:42→19:22)
[2018-05-05] MEDS: ampicillin inj 1 GM in normal saline 100ml IV soln 100 ML IV SCH ×3 (00:42→16:39)
[2018-05-05] MEDS: zolpidem 5mg tablet PO PRN (00:47)
[2018-05-05] MEDS: midodrine tablet 2.5 MG TABLET PO SCH ×3 (02:22→14:23)
[2018-05-05] MEDS: gabapentin 100mg capsule PO SCH ×3 (07:20→22:23)
[2018-05-05] MEDS: lactobacillus rhamnosus 10,000 MMU CELLS/CAPSULE PO SCH ×2 (07:21→19:26)
[2018-05-05] MEDS: pantoprazole 40mg Tablet.DR PO SCH (07:21)
[2018-05-05] MEDS: digoxin 125mcg (0.125mg) tablet PO SCH (07:21)
[2018-05-05] MEDS: enoxaparin 40mg/0.4ml syringe SUBCUT SCH (07:22)
[2018-05-05] MEDS: ferrous gluconate 324mg tablet PO SCH ×2 (07:22→19:26)
[2018-05-05 08:00] LABS: MAGNESIUM 1.7 MG/DL (1.5-2.4); POTASSIUM 3.3 MMOL/L (3.5-5.1)
[2018-05-05] MEDS: docusate sod 100mg capsule PO SCH ×2 (08:00→19:27)
[2018-05-05] MEDS: insulin Lispro (HumaLOG) vial - multi-dose SQ SCH ×3 (08:42→19:20)
[2018-05-05] MEDS: ciprofloxacin/D5W 200mg/100mL 100 ML IV SCH ×2 (09:29→20:54)
[2018-05-05] MEDS ORDERED: potassium Cl 20 mEq SR tablet PO STA (11:18)
[2018-05-05] MEDS: Potassium Cl inj 20 MEQ in normal saline 1000ml 990 ML IV SCH (19:21)
[2018-05-05] MEDS: NUT.TX.GLUC.INTOLER,LAC-FR,REG (BOOST GLUCOSE CONTROL) 237 ML PO SCH (19:25)
[2018-05-05] MEDS: insulin glargine (Lantus) pen - multi-dose SQ SCH (22:23)
[2018-05-05] MEDS: midodrine 5mg tablet PO SCH (22:23)
[2018-05-06] MEDS: ampicillin inj 1 GM in normal saline 100ml IV soln 100 ML IV SCH ×2 (00:25→08:38)
[2018-05-06] MEDS: morphine 4 MG/ML inj SYRINge IV PRN (02:49)
[2018-05-06] MEDS: Potassium Cl inj 20 MEQ in normal saline 1000ml 990 ML IV SCH ×2 (04:35→17:05)
[2018-05-06 06:06] LABS: BASOPHILS % (AUTO) 0.3 % (0-1); EOSINOPHILS # (AUTO) 0.1 X10'3 (0-0.9); EOSINOPHILS % (AUTO) 1.1 % (0-6); HEMATOCRIT 36.7 % (42.0-52.0); HEMOGLOBIN 12.6 g/dl (14.0-17.9); LYMPHOCYTES # (AUTO) 2.4 X10'3 (1.1-4.8); LYMPHOCYTES % (AUTO) 34.4 % (21-51); MEAN CORPUSCULAR HEMOGLOBIN 28.7 PG (27.0-31.0); MEAN CORPUSCULAR HGB CONC 34.5 % (33.0-36.5); MEAN CORPUSCULAR VOLUME 83.3 FL (78-98); MEAN PLATELET VOLUME 7.1 FL (7.4-10.4); MONOCYTES # (AUTO) 0.4 X10'3 (0-0.9); NEUTROPHILS # (AUTO) 4.1 X10'3 (1.8-7.7); NEUTROPHILS % (AUTO) 58.2 % (42-75); PLATELET COUNT 149 X10'3 (140-440); RED CELL DISTRIBUTION WIDTH 14.2 % (11.5-14.5)
[2018-05-06 06:32] LABS: ALBUMIN 2.8 G/DL (3.4-5.0); ANION GAP 9 (8-16); BLOOD UREA NITROGEN 33 MG/DL (7-18); BUN/CREATININE RATIO 29.5 (5.4-32.0); CALCIUM 8.1 MG/DL (8.5-10.1); CHLORIDE 103 MMOL/L (99-107); CREATININE 1.12 MG/DL (0.60-1.10); GLUCOSE 290 MG/DL (70-104); MAGNESIUM 1.6 MG/DL (1.5-2.4); POTASSIUM 3.9 MMOL/L (3.5-5.1); SODIUM 141 MMOL/L (135-145); eGFR 67 ML/MIN
[2018-05-06] MEDS: docusate sod 100mg capsule PO SCH ×2 (06:32→19:39)
[2018-05-06 07:00] VITALS: BP 147/88
[2018-05-06 07:28] VITALS: BP_SYST 109; BP_SYST 147; BP_SYST 89; BP_DIAS 55; BP_DIAS 67; BP_DIAS 88
[2018-05-06] MEDS: ciprofloxacin/D5W 200mg/100mL 100 ML IV SCH (07:50)
[2018-05-06] MEDS: lactobacillus rhamnosus 10,000 MMU CELLS/CAPSULE PO SCH ×2 (08:38→19:39)
[2018-05-06] MEDS: ferrous gluconate 324mg tablet PO SCH ×2 (08:38→19:38)
[2018-05-06] MEDS: gabapentin 100mg capsule PO SCH ×3 (08:39→21:21)
[2018-05-06] MEDS: digoxin 125mcg (0.125mg) tablet PO SCH (08:39)
[2018-05-06] MEDS: fludrocortisone acetate 0.1mg tablet PO SCH (08:39)
[2018-05-06] MEDS: midodrine 5mg tablet PO SCH ×3 (08:43→21:20)
[2018-05-06] MEDS: enoxaparin 40mg/0.4ml syringe SUBCUT SCH (08:43)
[2018-05-06] MEDS: hydrocortisone sod succ/PF 100mg/2ml inj. IV SCH (08:44)
[2018-05-06] MEDS: pantoprazole 40mg Tablet.DR PO SCH (08:53)
[2018-05-06] MEDS: insulin Lispro (HumaLOG) vial - multi-dose SQ SCH ×2 (08:58→19:30)
[2018-05-06] MEDS: NUT.TX.GLUC.INTOLER,LAC-FR,REG (BOOST GLUCOSE CONTROL) 237 ML PO SCH ×3 (08:59→18:40)
[2018-05-06 11:00] VITALS: BP_SYST 100; BP_SYST 128; BP_SYST 153; BP_DIAS 65; BP_DIAS 74; BP_DIAS 87
[2018-05-06] MEDS: dextrose ORAL solution 15 GM/59 ML bottle PO PRN ×2 (11:17→11:40)
[2018-05-06] MEDS ORDERED: HYDROcodone/acetaminophen 10/325mg tab PO PRN (18:55)
[2018-05-06 19:00] VITALS: BP_SYST 101; BP_SYST 122; BP_SYST 166; BP_DIAS 61; BP_DIAS 73; BP_DIAS 88
[2018-05-06] MEDS: ciprofloxacin 250mg tablet PO SCH (19:38)
[2018-05-06] MEDS: predniSONE 20 mg tablet PO SCH (20:43)
[2018-05-06 21:20] VITALS: BP 126/74
[2018-05-06] MEDS: amox tr/potassium clavulanate 500mg/125mg TAB PO SCH (21:21)
[2018-05-06] MEDS: insulin glargine (Lantus) pen - multi-dose SQ SCH (21:26)
[2018-05-06] MEDS: zolpidem 5mg tablet PO PRN (21:49)
[2018-05-07] VITALS: BP 168/76
[2018-05-07 07:13] LABS: BASOPHILS % (AUTO) 0.1 % (0-1); EOSINOPHILS # (AUTO) 0.1 X10'3 (0-0.9); EOSINOPHILS % (AUTO) 1.4 % (0-6); HEMATOCRIT 36.2 % (42.0-52.0); HEMOGLOBIN 12.5 g/dl (14.0-17.9); LYMPHOCYTES # (AUTO) 1.9 X10'3 (1.1-4.8); LYMPHOCYTES % (AUTO) 28.7 % (21-51); MEAN CORPUSCULAR HEMOGLOBIN 28.7 PG (27.0-31.0); MEAN CORPUSCULAR HGB CONC 34.6 % (33.0-36.5); MEAN CORPUSCULAR VOLUME 83.1 FL (78-98); MEAN PLATELET VOLUME 7.2 FL (7.4-10.4); MONOCYTES # (AUTO) 0.4 X10'3 (0-0.9); MONOCYTES % (AUTO) 5.8 % (2-12); NEUTROPHILS # (AUTO) 4.1 X10'3 (1.8-7.7); PLATELET COUNT 135 X10'3 (140-440); RED BLOOD COUNT 4.35 X10'6 (4.70-6.10); RED CELL DISTRIBUTION WIDTH 13.8 % (11.5-14.5); WHITE BLOOD COUNT 6.5 X10'3 (4.5-11.0)
[2018-05-07 07:21] VITALS: BP 140/82
[2018-05-07 07:21] LABS: ALBUMIN 2.9 G/DL (3.4-5.0); ANION GAP 6 (8-16); BLOOD UREA NITROGEN 35 MG/DL (7-18); BUN/CREATININE RATIO 31.5 (5.4-32.0); CALCIUM 8.5 MG/DL (8.5-10.1); CHLORIDE 102 MMOL/L (99-107); CREATININE 1.11 MG/DL (0.60-1.10); GLUCOSE 261 MG/DL (70-104); POTASSIUM 3.4 MMOL/L (3.5-5.1); SODIUM 140 MMOL/L (135-145); TOTAL CARBON DIOXIDE 32.3 MMOL/L (24-32); eGFR 68 ML/MIN
[2018-05-07] MEDS: docusate sod 100mg capsule PO SCH (08:00)
[2018-05-07] MEDS: NUT.TX.GLUC.INTOLER,LAC-FR,REG (BOOST GLUCOSE CONTROL) 237 ML PO SCH ×2 (08:15→13:00)
[2018-05-07] MEDS: lactobacillus rhamnosus 10,000 MMU CELLS/CAPSULE PO SCH (08:18)
[2018-05-07] MEDS: predniSONE 20 mg tablet PO SCH (08:18)
[2018-05-07] MEDS: ferrous gluconate 324mg tablet PO SCH (08:18)
[2018-05-07] MEDS: fludrocortisone acetate 0.1mg tablet PO SCH (08:18)
[2018-05-07] MEDS: ciprofloxacin 250mg tablet PO SCH (08:18)
[2018-05-07] MEDS: midodrine 5mg tablet PO SCH ×2 (08:18→15:03)
[2018-05-07] MEDS: digoxin 125mcg (0.125mg) tablet PO SCH (08:19)
[2018-05-07] MEDS: pantoprazole 40mg Tablet.DR PO SCH (08:19)
[2018-05-07] MEDS: enoxaparin 40mg/0.4ml syringe SUBCUT SCH (08:21)
[2018-05-07] MEDS: gabapentin 100mg capsule PO SCH ×2 (08:22→15:03)
[2018-05-07] MEDS: amox tr/potassium clavulanate 500mg/125mg TAB PO SCH ×2 (08:23→15:03)
[2018-05-07] MEDS: insulin Lispro (HumaLOG) vial - multi-dose SQ SCH (08:28)
[2018-05-07 11:16] VITALS: BP 160/90
[2018-05-07] MEDS ORDERED: FLO0.1T PO (12:03)
[2018-05-07] MEDS ORDERED: MIDO5TAB PO (12:03)
[2018-05-07] MEDS ORDERED: CIPR250T4 PO (12:03)
[2018-05-07] MEDS ORDERED: AMOX-580 PO (12:03)
[2018-05-07] MEDS ORDERED: PRED10TA23 PO (12:03)
[2018-05-07] MEDS ORDERED: POTA20TA19 PO (12:42)
== END 2018-05-07 15:15 | disposition home health service (06) | DRG 721 ==
LOC: ER 13:56 → OBSVTOIN 16:10 → ED HOLD 16:10 → SUR 3N 18:13
PROVIDERS: ADMIT Internal Medicine; ATTEND Internal Medicine
PROC: 30233N1 Transfusion of Nonautologous Red Blood Cells into Peripheral Vein, Percutaneous Approach (ICD-10-PCS; principal; 2018-05-01)
DX: T81.4XXA Infection following a procedure, initial encounter (principal); N17.9 Acute kidney failure, unspecified; E44.0 Moderate protein-calorie malnutrition; E11.40 Type 2 diabetes mellitus with diabetic neuropathy, unspecified; D64.9 Anemia, unspecified; E86.0 Dehydration; E87.6 Hypokalemia; F17.210 Nicotine dependence, cigarettes, uncomplicated; I95.1 Orthostatic hypotension; N40.0 Benign prostatic hyperplasia without lower urinary tract symptoms; F12.90 Cannabis use, unspecified, uncomplicated; E11.649 Type 2 diabetes mellitus with hypoglycemia without coma; B95.2 Enterococcus as the cause of diseases classified elsewhere; B95.7 Other staphylococcus as the cause of diseases classified elsewhere; B96.4 Proteus (mirabilis) (morganii) as the cause of diseases classified elsewhere; Z96.642 Presence of left artificial hip joint; F32.9 Major depressive disorder, single episode, unspecified; G47.00 Insomnia, unspecified; Z79.899 Other long term (current) drug therapy; Z88.8 Allergy status to other drugs, medicaments and biological substances; Z87.11 Personal history of peptic ulcer disease; Z89.011 Acquired absence of right thumb; Z68.20 Body mass index [BMI] 20.0-20.9, adult; Z89.012 Acquired absence of left thumb; Y83.8 Other surgical procedures as the cause of abnormal reaction of the patient, or of later complication, without mention of misadventure at the time of the procedure; Y92.89 Other specified places as the place of occurrence of the external cause
CPT/HCPCS: 36415; 71045; 73564; 80048; 80053; 82533; 82948; 83605; 83735; 83880; 84100; 84132; 84145; 84484; 85025; 85610; 85730; 86885; 86900; 86901; 86920; 87040; 87070; 87075; 87077; 87186; 93005; 96360; 97110; 97116; 97162; 97530; 99285; A4649; A6196; A6212; A6213; A6449; J0290; J0690; J0744; J1650; J1720; J1815; J2270; J3480; J7030; J7512; P9016

== ENCOUNTER 2018-05-11 10:25 | Day surgery (SDC) | payer MEDICAID ==
[~2018-05-11 10:25] MED LIST changes: +AMOX-580 PO; -AMOX500C2 PO; -BUPR150T8 PO; +CIPR250T4 PO; -CLAR500T PO; +FERR324T PO; +FLO0.1T PO; +GABA-530 PO; -GABA100C PO; -GLIM1TAB46 PO; -HYDR-3927 PO; -HYDR-3972 PO; -INSU100I31 SQ; +LANS15CA18 PO; +MIDO5TAB PO; +PRED10TA23 PO; -PSYL3.4P5 PO
[2018-05-11] MEDS ORDERED: LIDOcaine 2% 5ml jelly ONE ×2 (11:58→12:28)
== END 2018-05-11 12:36 | disposition home or self-care (01) ==
LOC: WOUND CARE 10:25
PROVIDERS: ATTEND Surgery
DX: T81.89XD Other complications of procedures, not elsewhere classified, subsequent encounter (principal); E11.65 Type 2 diabetes mellitus with hyperglycemia; E11.69 Type 2 diabetes mellitus with other specified complication; M86.8X8 Other osteomyelitis, other site; I10 Essential (primary) hypertension; J44.9 Chronic obstructive pulmonary disease, unspecified; F12.90 Cannabis use, unspecified, uncomplicated; F17.210 Nicotine dependence, cigarettes, uncomplicated; F41.9 Anxiety disorder, unspecified; Z90.89 Acquired absence of other organs; Z79.4 Long term (current) use of insulin; Z79.899 Other long term (current) drug therapy; Z68.27 Body mass index [BMI] 27.0-27.9, adult; Z96.612 Presence of left artificial shoulder joint; Z86.19 Personal history of other infectious and parasitic diseases; Y83.8 Other surgical procedures as the cause of abnormal reaction of the patient, or of later complication, without mention of misadventure at the time of the procedure
CPT/HCPCS: 11042; 36416; 82948; A6021; A6222

== ENCOUNTER 2018-05-18 10:02 | Day surgery (SDC) | payer MEDICAID ==
[~2018-05-18 10:02] MED LIST changes: -AMOX-580 PO; -CIPR250T4 PO
[2018-05-18] MEDS ORDERED: LIDOcaine 2% 5ml jelly ONE ×2 (10:12→10:44)
== END 2018-05-18 11:19 | disposition home or self-care (01) ==
LOC: WOUND CARE 10:02
PROVIDERS: ATTEND Surgery
DX: T81.89XD Other complications of procedures, not elsewhere classified, subsequent encounter (principal); E11.622 Type 2 diabetes mellitus with other skin ulcer; L98.491 Non-pressure chronic ulcer of skin of other sites limited to breakdown of skin; E11.65 Type 2 diabetes mellitus with hyperglycemia; E11.69 Type 2 diabetes mellitus with other specified complication; M86.8X8 Other osteomyelitis, other site; I10 Essential (primary) hypertension; J44.9 Chronic obstructive pulmonary disease, unspecified; F12.90 Cannabis use, unspecified, uncomplicated; F17.210 Nicotine dependence, cigarettes, uncomplicated; F41.9 Anxiety disorder, unspecified; Z90.89 Acquired absence of other organs; Z79.4 Long term (current) use of insulin; Z79.899 Other long term (current) drug therapy; Z68.27 Body mass index [BMI] 27.0-27.9, adult; Z96.612 Presence of left artificial shoulder joint; Z86.19 Personal history of other infectious and parasitic diseases; Y83.8 Other surgical procedures as the cause of abnormal reaction of the patient, or of later complication, without mention of misadventure at the time of the procedure
CPT/HCPCS: 11042; 36416; 82948; A6021; A6206; A6212

== ENCOUNTER 2018-05-21 09:49 | Day surgery (SDC) | payer MEDICAID ==
[2018-05-21] MEDS ORDERED: LIDOcaine 1%/PF 5ML 10 MG/ML VIAL ONE (11:27)
== END 2018-05-21 12:21 | disposition home or self-care (01) ==
LOC: WOUND CARE 09:49
PROVIDERS: ATTEND Surgery
DX: T87.89 Other complications of amputation stump (principal); E11.622 Type 2 diabetes mellitus with other skin ulcer; L98.491 Non-pressure chronic ulcer of skin of other sites limited to breakdown of skin; E11.65 Type 2 diabetes mellitus with hyperglycemia; E11.69 Type 2 diabetes mellitus with other specified complication; M86.8X8 Other osteomyelitis, other site; I10 Essential (primary) hypertension; J44.9 Chronic obstructive pulmonary disease, unspecified; F12.90 Cannabis use, unspecified, uncomplicated; F17.210 Nicotine dependence, cigarettes, uncomplicated; F41.9 Anxiety disorder, unspecified; F32.9 Major depressive disorder, single episode, unspecified; Z90.89 Acquired absence of other organs; Z79.4 Long term (current) use of insulin; Z79.899 Other long term (current) drug therapy; Z68.27 Body mass index [BMI] 27.0-27.9, adult; Z96.612 Presence of left artificial shoulder joint; Z86.19 Personal history of other infectious and parasitic diseases; Z89.011 Acquired absence of right thumb; Z87.11 Personal history of peptic ulcer disease; Y83.5 Amputation of limb(s) as the cause of abnormal reaction of the patient, or of later complication, without mention of misadventure at the time of the procedure
CPT/HCPCS: 11044; 36416; 82948; A6021; A6206; J2001

== ENCOUNTER 2018-05-25 09:35 | Day surgery (SDC) | payer MEDICAID ==
[2018-05-25] MEDS ORDERED: LIDOcaine 2% 5ml jelly ONE (09:43)
[2018-05-25] MEDS ORDERED: CIPR-259 PO (12:11)
== END 2018-05-25 10:38 | disposition home or self-care (01) ==
LOC: WOUND CARE 09:35
PROVIDERS: ATTEND Surgery
DX: T87.89 Other complications of amputation stump (principal); E11.622 Type 2 diabetes mellitus with other skin ulcer; L98.491 Non-pressure chronic ulcer of skin of other sites limited to breakdown of skin; E11.65 Type 2 diabetes mellitus with hyperglycemia; E11.69 Type 2 diabetes mellitus with other specified complication; M86.8X8 Other osteomyelitis, other site; I10 Essential (primary) hypertension; J44.9 Chronic obstructive pulmonary disease, unspecified; F12.90 Cannabis use, unspecified, uncomplicated; F17.210 Nicotine dependence, cigarettes, uncomplicated; F41.9 Anxiety disorder, unspecified; F32.9 Major depressive disorder, single episode, unspecified; Z90.89 Acquired absence of other organs; Z79.4 Long term (current) use of insulin; Z79.899 Other long term (current) drug therapy; Z68.27 Body mass index [BMI] 27.0-27.9, adult; Z96.612 Presence of left artificial shoulder joint; Z86.19 Personal history of other infectious and parasitic diseases; Z89.011 Acquired absence of right thumb; Z87.11 Personal history of peptic ulcer disease; Y83.5 Amputation of limb(s) as the cause of abnormal reaction of the patient, or of later complication, without mention of misadventure at the time of the procedure
CPT/HCPCS: 11042; 36416; 82948; A6021; A6206; A6209

== ENCOUNTER 2018-05-26 11:35 | Emergency (ER) | payer MEDICAID ==
[~2018-05-26] VITALS: Ht 584.7 cm; Wt 59.0 kg
[~2018-05-26 11:35] MED LIST changes: +CIPR-259 PO
[2018-05-26] MEDS ORDERED: normal saline 1000ML IV soln IVB ONE (13:20)
[2018-05-26 13:32] LABS: BASOPHILS % (AUTO) 0.2 % (0-1); EOSINOPHILS # (AUTO) 0.1 X10'3 (0-0.9); EOSINOPHILS % (AUTO) 1.4 % (0-6); HEMATOCRIT 34.8 % (42.0-52.0); LYMPHOCYTES # (AUTO) 2.2 X10'3 (1.1-4.8); LYMPHOCYTES % (AUTO) 38.3 % (21-51); MEAN CORPUSCULAR HGB CONC 34.6 % (33.0-36.5); MEAN CORPUSCULAR VOLUME 83.8 FL (78-98); MEAN PLATELET VOLUME 7.2 FL (7.4-10.4); MONOCYTES # (AUTO) 0.4 X10'3 (0-0.9); MONOCYTES % (AUTO) 6.2 % (2-12); NEUTROPHILS # (AUTO) 3.1 X10'3 (1.8-7.7); NEUTROPHILS % (AUTO) 53.9 % (42-75); PLATELET COUNT 116 X10'3 (140-440); RED BLOOD COUNT 4.15 X10'6 (4.70-6.10); RED CELL DISTRIBUTION WIDTH 15.5 % (11.5-14.5); WHITE BLOOD COUNT 5.8 X10'3 (4.5-11.0)
[2018-05-26 13:47] LABS: ALANINE AMINOTRANSFERASE 43 U/L (12-78); ALBUMIN/GLOBULIN RATIO 0.7 (1.1-1.5); ALKALINE PHOSPHATASE 132 IU/L (46-116); ANION GAP 6 (8-16); ASPARTATE AMINO TRANSFERASE 21 U/L (10-37); BILIRUBIN,TOTAL 0.4 MG/DL (0.1-1.0); BLOOD UREA NITROGEN 18 MG/DL (7-18); CALCIUM 8.8 MG/DL (8.5-10.1); CHLORIDE 101 MMOL/L (99-107); GLUCOSE 282 MG/DL (70-104); POTASSIUM 4.1 MMOL/L (3.5-5.1); SODIUM 136 MMOL/L (135-145); TOTAL CARBON DIOXIDE 28.6 MMOL/L (24-32); TOTAL PROTEIN 7.2 G/DL (6.4-8.2); eGFR 62 ML/MIN
[2018-05-26 15:10] VITALS: BP 137/85
== END 2018-05-26 15:12 | disposition home or self-care (01) ==
LOC: ER 11:37
DX: S80.212A Abrasion, left knee, initial encounter (principal); I95.1 Orthostatic hypotension; E11.9 Type 2 diabetes mellitus without complications; F17.200 Nicotine dependence, unspecified, uncomplicated; F12.90 Cannabis use, unspecified, uncomplicated; Z86.19 Personal history of other infectious and parasitic diseases; Z90.89 Acquired absence of other organs; Z98.890 Other specified postprocedural states; Z88.8 Allergy status to other drugs, medicaments and biological substances; Z79.4 Long term (current) use of insulin; Z79.899 Other long term (current) drug therapy; W18.39XA Other fall on same level, initial encounter; Y93.89 Activity, other specified; Y92.89 Other specified places as the place of occurrence of the external cause; Y99.8 Other external cause status
CPT/HCPCS: 36415; 80053; 84484; 85025; 93005; 96360; 99285; J7030

== ENCOUNTER 2018-06-01 09:49 | Day surgery (SDC) | payer MEDICAID ==
[2018-06-01] MEDS ORDERED: LIDOcaine 2% 5ml jelly ONE (09:58)
[2018-06-02] MEDS ORDERED: LOPE2CAP PO (12:42)
[2018-06-02] MEDS ORDERED: MIDO2.5T14 PO (12:42)
[2018-06-02] MEDS ORDERED: FLO0.1T PO (12:42)
[2018-06-02] MEDS ORDERED: BUPR150T8 PO (12:42)
== END 2018-06-01 10:47 | disposition home or self-care (01) ==
LOC: WOUND CARE 09:49
PROVIDERS: ATTEND Surgery
DX: T87.89 Other complications of amputation stump (principal); E11.622 Type 2 diabetes mellitus with other skin ulcer; L98.491 Non-pressure chronic ulcer of skin of other sites limited to breakdown of skin; E11.65 Type 2 diabetes mellitus with hyperglycemia; E11.69 Type 2 diabetes mellitus with other specified complication; M86.8X8 Other osteomyelitis, other site; I10 Essential (primary) hypertension; J44.9 Chronic obstructive pulmonary disease, unspecified; F12.90 Cannabis use, unspecified, uncomplicated; F17.210 Nicotine dependence, cigarettes, uncomplicated; F41.9 Anxiety disorder, unspecified; F32.9 Major depressive disorder, single episode, unspecified; Z90.89 Acquired absence of other organs; Z79.4 Long term (current) use of insulin; Z79.899 Other long term (current) drug therapy; Z68.27 Body mass index [BMI] 27.0-27.9, adult; Z96.612 Presence of left artificial shoulder joint; Z86.19 Personal history of other infectious and parasitic diseases; Z89.011 Acquired absence of right thumb; Z87.11 Personal history of peptic ulcer disease; Y83.5 Amputation of limb(s) as the cause of abnormal reaction of the patient, or of later complication, without mention of misadventure at the time of the procedure
CPT/HCPCS: 11042; 36416; 82948; A6021; A6206; A6209

== ENCOUNTER 2018-06-02 10:03 | Observation (INO) | payer MEDICAID ==
[~2018-06-02] VITALS: Ht 170.2 cm; Wt 62.9 kg
[2018-06-02] MEDS ORDERED: normal saline 1000ml 1,000 ML IV ONE (10:50)
[2018-06-02 11:12] LABS: BASOPHILS % (AUTO) 0.4 % (0-1); EOSINOPHILS # (AUTO) 0.1 X10'3 (0-0.9); EOSINOPHILS % (AUTO) 1.5 % (0-6); HEMATOCRIT 32.6 % (42.0-52.0); HEMOGLOBIN 11.4 g/dl (14.0-17.9); LYMPHOCYTES # (AUTO) 2.1 X10'3 (1.1-4.8); LYMPHOCYTES % (AUTO) 35.2 % (21-51); MEAN CORPUSCULAR HGB CONC 35.1 % (33.0-36.5); MEAN CORPUSCULAR VOLUME 82.7 FL (78-98); MEAN PLATELET VOLUME 6.9 FL (7.4-10.4); MONOCYTES # (AUTO) 0.4 X10'3 (0-0.9); MONOCYTES % (AUTO) 6.6 % (2-12); NEUTROPHILS # (AUTO) 3.3 X10'3 (1.8-7.7); NEUTROPHILS % (AUTO) 56.3 % (42-75); PLATELET COUNT 140 X10'3 (140-440); RED BLOOD COUNT 3.94 X10'6 (4.70-6.10); RED CELL DISTRIBUTION WIDTH 16.3 % (11.5-14.5); WHITE BLOOD COUNT 5.9 X10'3 (4.5-11.0)
[2018-06-02 11:21] LABS: PROTHROMBIN TIME 10.1 SECONDS (9.0-12.0)
[2018-06-02 11:27] LABS: ALANINE AMINOTRANSFERASE 57 U/L (12-78); ALBUMIN 2.9 G/DL (3.4-5.0); ALBUMIN/GLOBULIN RATIO 0.7 (1.1-1.5); ALKALINE PHOSPHATASE 129 IU/L (46-116); ANION GAP 4 (8-16); ASPARTATE AMINO TRANSFERASE 35 U/L (10-37); BILIRUBIN,TOTAL 0.4 MG/DL (0.1-1.0); BLOOD UREA NITROGEN 11 MG/DL (7-18); BUN/CREATININE RATIO 10.9 (5.4-32.0); CALCIUM 8.5 MG/DL (8.5-10.1); CHLORIDE 99 MMOL/L (99-107); CREATININE 1.01 MG/DL (0.60-1.10); GLUCOSE 276 MG/DL (70-104); POTASSIUM 4.9 MMOL/L (3.5-5.1); SODIUM 136 MMOL/L (135-145); TOTAL CARBON DIOXIDE 32.9 MMOL/L (24-32); TOTAL PROTEIN 7.1 G/DL (6.4-8.2); eGFR 76 ML/MIN
[2018-06-02 11:37] LABS: ETHANOL < 0.010 GM/DL (0.0-0.010); MAGNESIUM 1.5 MG/DL (1.5-2.4); PHOSPHORUS 4.1 MG/DL (2.3-4.5)
[2018-06-02 12:02] LABS: CLARITY,URINE CLEAR (Clear); COLOR,URINE YELLOW (Yellow); GLUCOSE, URINE >=1000 mg/dl (Neg); KETONES,URINE NEGATIVE (Neg); LEUKOCYTE ESTERASE ,URINE NEGATIVE (Neg); NITRITES, URINE NEGATIVE (Neg); OCCULT BLOOD,URINE TRACE-INTACT (Neg); PH,URINE 5.5 (4.8-8.0); PROTEIN,URINE TRACE mg/dl (Neg); UROBILINOGEN,URINE 0.2 E.U/dL (0.2-1.0)
[2018-06-02 12:04] LABS: UA COLLECTION TYPE VOIDED
[2018-06-02 12:07] LABS: URINE AMPHETAMINE SCREEN NEGATIVE (Neg); URINE BARBITUATE SCREEN NEGATIVE (Neg); URINE BENZODIAZEPINES SCREEN NEGATIVE (Neg); URINE CANNABINOID SCREEN POSITIVE (Neg); URINE COCAINE SCREEN NEGATIVE (Neg); URINE METHADONE SCREEN NEGATIVE (Neg); URINE OPIATE SCREEN NEGATIVE (Neg); URINE PHENCYCLIDINE SCREEN NEGATIVE (Neg)
[2018-06-02 12:09] LABS: RBC,URINE NONE SEEN /HPF (0-2); WBC,URINE 0-4 /HPF (0-4)
[2018-06-02 12:10] LABS: BACTERIA,URINE NONE SEEN /HPF (Neg); CAL OXALATE CRYSTALS 1+ /HPF (NEGATIVE); SQUAMOUS EPITHELIAL CELL,UR FEW /LPF (FEW)
[2018-06-02] MEDS ORDERED: potassium Cl 40MEQ/NS 500ml 500 ML IV PRN ×2 (12:30)
[2018-06-02] MEDS ORDERED: magnesium hydroxide 30ml (MOM) UD suspension PO PRN (12:30)
[2018-06-02] MEDS ORDERED: magnesium Cl slow-release 64mg tablet PO PRN (12:30)
[2018-06-02] MEDS ORDERED: ondansetron/PF 4mg/2ml inj IV PRN (12:30)
[2018-06-02] MEDS ORDERED: acetaminophen 325mg tablet PO PRN (12:30)
[2018-06-02] MEDS ORDERED: potassium Cl 20 mEq SR tablet PO PRN ×2 (12:30)
[2018-06-02] MEDS ORDERED: magnesium 1gm/100ml D5W IVPB 100 ML IV PRN (12:30)
[2018-06-02] MEDS ORDERED: mag hydrox/Alum hydrox/simeth 30ml oral suspension PO PRN (12:30)
[2018-06-02] MEDS ORDERED: magnesium 4gm in 100ml NS 100 ML IV PRN (12:30)
[2018-06-02] MEDS ORDERED: FLO0.1T PO (12:42)
[2018-06-02] MEDS ORDERED: BUPR150T8 PO (12:42)
[2018-06-02] MEDS ORDERED: LOPE2CAP PO (12:42)
[2018-06-02] MEDS ORDERED: MIDO2.5T14 PO (12:42)
[2018-06-02 18:35] VITALS: BP 146/95
[2018-06-02] MEDS: midodrine 5mg tablet PO SCH (21:00)
[2018-06-02] MEDS ORDERED: midodrine tablet 2.5 MG TABLET PO SCH (21:00)
[2018-06-02] MEDS: nortriptyline 25mg capsule PO SCH (21:11)
[2018-06-02] MEDS: gabapentin 100mg capsule PO SCH (21:11)
[2018-06-02] MEDS: ferrous gluconate 324mg tablet PO SCH (21:11)
[2018-06-02] MEDS: heparin, porcine 5000 units/ml vial SQ SCH (21:12)
[2018-06-03] VITALS: BP 163/98
[2018-06-03 05:00] LABS: BASOPHILS % (AUTO) 0.3 % (0-1); EOSINOPHILS # (AUTO) 0.1 X10'3 (0-0.9); EOSINOPHILS % (AUTO) 1.7 % (0-6); HEMATOCRIT 32.2 % (42.0-52.0); LYMPHOCYTES # (AUTO) 1.8 X10'3 (1.1-4.8); LYMPHOCYTES % (AUTO) 43.1 % (21-51); MEAN CORPUSCULAR HEMOGLOBIN 28.2 PG (27.0-31.0); MEAN CORPUSCULAR HGB CONC 34.2 % (33.0-36.5); MEAN CORPUSCULAR VOLUME 82.5 FL (78-98); MEAN PLATELET VOLUME 7.1 FL (7.4-10.4); MONOCYTES # (AUTO) 0.3 X10'3 (0-0.9); MONOCYTES % (AUTO) 6.9 % (2-12); PLATELET COUNT 113 X10'3 (140-440); RED CELL DISTRIBUTION WIDTH 15.9 % (11.5-14.5); WHITE BLOOD COUNT 4.1 X10'3 (4.5-11.0)
[2018-06-03 06:08] LABS: ALANINE AMINOTRANSFERASE 51 U/L (12-78); ALBUMIN 2.6 G/DL (3.4-5.0); ALBUMIN/GLOBULIN RATIO 0.6 (1.1-1.5); ALKALINE PHOSPHATASE 124 IU/L (46-116); ANION GAP 5 (8-16); ASPARTATE AMINO TRANSFERASE 31 U/L (10-37); BILIRUBIN,TOTAL 0.4 MG/DL (0.1-1.0); BLOOD UREA NITROGEN 8 MG/DL (7-18); BUN/CREATININE RATIO 8.2 (5.4-32.0); CALCIUM 8.5 MG/DL (8.5-10.1); CHLORIDE 96 MMOL/L (99-107); CREATININE 0.97 MG/DL (0.60-1.10); GLUCOSE 311 MG/DL (70-104); MAGNESIUM 1.5 MG/DL (1.5-2.4); SODIUM 135 MMOL/L (135-145); TOTAL CARBON DIOXIDE 33.6 MMOL/L (24-32); TOTAL PROTEIN 6.7 G/DL (6.4-8.2); eGFR 79 ML/MIN
[2018-06-03 07:03] LABS: HEMOGLOBIN A1C 9.4 % (4.5-6.2)
[2018-06-03 08:00] VITALS: BP 131/88
[2018-06-03] MEDS: K and/or MAG REPLACEMENT MC SCH (08:00)
[2018-06-03] MEDS ORDERED: tamsulosin 0.4mg capsule PO SCH (08:00)
[2018-06-03] MEDS: pantoprazole 40mg Tablet.DR PO SCH (09:12)
[2018-06-03] MEDS: gabapentin 100mg capsule PO SCH ×3 (09:12→20:36)
[2018-06-03] MEDS: midodrine 5mg tablet PO SCH ×3 (09:12→20:33)
[2018-06-03] MEDS: buPROPion SR 150mg tablet PO SCH (09:12)
[2018-06-03] MEDS: fludrocortisone acetate 0.1mg tablet PO SCH (09:12)
[2018-06-03] MEDS: ferrous gluconate 324mg tablet PO SCH ×2 (09:12→20:36)
[2018-06-03] MEDS: heparin, porcine 5000 units/ml vial SQ SCH ×2 (09:13→20:38)
[2018-06-03] MEDS ORDERED: dextrose ORAL solution 15 GM/59 ML bottle PO PRN (10:55)
[2018-06-03] MEDS ORDERED: glucagon, human recombinant 1mg kit SUBCUT PRN (10:55)
[2018-06-03] MEDS ORDERED: insulin regular, human vial - multi-dose SQ SCH (10:55)
[2018-06-03] MEDS ORDERED: dextrose 50%-water 50ml dispensing syringe IV PRN ×2 (10:55)
[2018-06-03] MEDS ORDERED: MESSAGE TO PHARMACY PO ONE (10:55)
[2018-06-03 11:53] VITALS: BP 123/82
[2018-06-03 12:43] LABS: C DIFF ANTIGEN NEGATIVE (NEGATIVE); C DIFF SPECIMEN=DIARRHEA? ACCEPTABLE; C DIFFICILE TOXINS A&B NEGATIVE (Neg)
[2018-06-03] MEDS: insulin Lispro (HumaLOG) vial - multi-dose SQ SCH ×2 (13:14→18:48)
[2018-06-03] MEDS: nicotine 14mg patch - 24hr TD SCH (14:29)
[2018-06-03] MEDS: normal saline 1000ml 1,000 ML IV SCH (14:32)
[2018-06-03] MEDS: dextrose ORAL solution 15 GM/59 ML bottle PO PRN (17:48)
[2018-06-03] MEDS ORDERED: gadopentetate dimeglumine 7.5 MMOL/15 ML syringe ONE (18:01)
[2018-06-03 20:00] VITALS: BP_SYST 63; BP_SYST 76; BP_SYST 89; BP_DIAS 39; BP_DIAS 47; BP_DIAS 58
[2018-06-03] MEDS: nortriptyline 25mg capsule PO SCH (20:32)
[2018-06-03] MEDS: insulin glargine (Lantus) pen - multi-dose SQ SCH (20:44)
[2018-06-04] VITALS: BP 123/71
[2018-06-04] MEDS: normal saline 1000ml 1,000 ML IV SCH ×3 (00:15→15:40)
[2018-06-04 06:35] LABS: HEMATOCRIT 32.9 % (42.0-52.0); HEMOGLOBIN 11.4 g/dl (14.0-17.9); MEAN CORPUSCULAR HEMOGLOBIN 28.6 PG (27.0-31.0); MEAN CORPUSCULAR HGB CONC 34.5 % (33.0-36.5); MEAN PLATELET VOLUME 6.9 FL (7.4-10.4); PLATELET COUNT 121 X10'3 (140-440); RED BLOOD COUNT 3.96 X10'6 (4.70-6.10); RED CELL DISTRIBUTION WIDTH 15.7 % (11.5-14.5); WHITE BLOOD COUNT 3.9 X10'3 (4.5-11.0)
[2018-06-04 06:48] LABS: ALANINE AMINOTRANSFERASE 44 U/L (12-78); ALBUMIN 2.6 G/DL (3.4-5.0); ALBUMIN/GLOBULIN RATIO 0.7 (1.1-1.5); ALKALINE PHOSPHATASE 112 IU/L (46-116); ANION GAP 1 (8-16); ASPARTATE AMINO TRANSFERASE 26 U/L (10-37); BILIRUBIN,TOTAL 0.3 MG/DL (0.1-1.0); BLOOD UREA NITROGEN 10 MG/DL (7-18); BUN/CREATININE RATIO 9.7 (5.4-32.0); CALCIUM 8.6 MG/DL (8.5-10.1); CHLORIDE 100 MMOL/L (99-107); CREATININE 1.03 MG/DL (0.60-1.10); GLUCOSE 177 MG/DL (70-104); MAGNESIUM 1.5 MG/DL (1.5-2.4); POTASSIUM 3.8 MMOL/L (3.5-5.1); SODIUM 137 MMOL/L (135-145); TOTAL CARBON DIOXIDE 35.7 MMOL/L (24-32); TOTAL PROTEIN 6.6 G/DL (6.4-8.2); eGFR 74 ML/MIN
[2018-06-04 07:19] LABS: ANISOCYTOSIS 1+; MICROCYTOSIS 1+; PLATELET ESTIMATE DECREASED; TOTAL CELLS COUNTED 100
[2018-06-04 07:20] LABS: POLYCHROMASIA FEW
[2018-06-04] MEDS: K and/or MAG REPLACEMENT MC SCH (08:00)
[2018-06-04 08:17] VITALS: BP 156/92
[2018-06-04] MEDS: nicotine 14mg patch - 24hr TD SCH (08:52)
[2018-06-04] MEDS: gabapentin 100mg capsule PO SCH ×3 (08:52→21:30)
[2018-06-04] MEDS: ferrous gluconate 324mg tablet PO SCH ×2 (08:52→19:52)
[2018-06-04] MEDS: fludrocortisone acetate 0.1mg tablet PO SCH ×2 (08:52→21:31)
[2018-06-04] MEDS: pantoprazole 40mg Tablet.DR PO SCH (08:53)
[2018-06-04] MEDS: midodrine 5mg tablet PO SCH ×3 (08:53→21:30)
[2018-06-04] MEDS: heparin, porcine 5000 units/ml vial SQ SCH ×2 (08:53→19:52)
[2018-06-04] MEDS: buPROPion SR 150mg tablet PO SCH (08:53)
[2018-06-04] MEDS: insulin Lispro (HumaLOG) vial - multi-dose SQ SCH ×3 (09:01→19:51)
[2018-06-04 12:09] VITALS: BP_SYST 131; BP_SYST 70; BP_SYST 89; BP_DIAS 45; BP_DIAS 65; BP_DIAS 79
[2018-06-04 12:19] VITALS: BP 131/79
[2018-06-04] MEDS ORDERED: loperamide 2mg capsule PO PRN (15:20)
[2018-06-04] MEDS: loperamide 2mg capsule PO PRN ×2 (15:40→21:39)
[2018-06-04 20:00] VITALS: BP_SYST 119; BP_SYST 157; BP_SYST 90; BP_DIAS 58; BP_DIAS 74; BP_DIAS 91
[2018-06-04] MEDS: nortriptyline 25mg capsule PO SCH (21:31)
[2018-06-04] MEDS: insulin glargine (Lantus) pen - multi-dose SQ SCH (21:34)
[2018-06-05] VITALS: BP 165/99
[2018-06-05] MEDS: normal saline 1000ml 1,000 ML IV SCH ×2 (05:39→16:44)
[2018-06-05 07:00] VITALS: BP 131/88
[2018-06-05 08:00] VITALS: BP_SYST 131; BP_SYST 81; BP_SYST 89; BP_DIAS 54; BP_DIAS 60; BP_DIAS 88
[2018-06-05] MEDS: K and/or MAG REPLACEMENT MC SCH (08:00)
[2018-06-05] MEDS: insulin Lispro (HumaLOG) vial - multi-dose SQ SCH ×2 (10:12→13:26)
[2018-06-05] MEDS: gabapentin 100mg capsule PO SCH ×3 (10:15→20:36)
[2018-06-05] MEDS: fludrocortisone acetate 0.1mg tablet PO SCH ×3 (10:15→20:36)
[2018-06-05] MEDS: ferrous gluconate 324mg tablet PO SCH ×2 (10:15→20:36)
[2018-06-05] MEDS: loperamide 2mg capsule PO PRN ×2 (10:15→20:38)
[2018-06-05] MEDS: midodrine 5mg tablet PO SCH ×3 (10:15→20:36)
[2018-06-05] MEDS: pantoprazole 40mg Tablet.DR PO SCH (10:15)
[2018-06-05] MEDS: buPROPion SR 150mg tablet PO SCH (10:15)
[2018-06-05] MEDS: heparin, porcine 5000 units/ml vial SQ SCH ×2 (10:16→20:36)
[2018-06-05] MEDS: nicotine 14mg patch - 24hr TD SCH (10:16)
[2018-06-05 10:56] LABS: BASOPHILS % (AUTO) 0.3 % (0-1); EOSINOPHILS # (AUTO) 0.1 X10'3 (0-0.9); EOSINOPHILS % (AUTO) 1.6 % (0-6); HEMATOCRIT 32.4 % (42.0-52.0); HEMOGLOBIN 10.9 g/dl (14.0-17.9); LYMPHOCYTES # (AUTO) 1.5 X10'3 (1.1-4.8); LYMPHOCYTES % (AUTO) 41.3 % (21-51); MEAN CORPUSCULAR HEMOGLOBIN 28.3 PG (27.0-31.0); MEAN CORPUSCULAR HGB CONC 33.8 % (33.0-36.5); MEAN CORPUSCULAR VOLUME 83.7 FL (78-98); MEAN PLATELET VOLUME 6.9 FL (7.4-10.4); MONOCYTES # (AUTO) 0.2 X10'3 (0-0.9); MONOCYTES % (AUTO) 6.6 % (2-12); NEUTROPHILS # (AUTO) 1.8 X10'3 (1.8-7.7); NEUTROPHILS % (AUTO) 50.2 % (42-75); PLATELET COUNT 113 X10'3 (140-440); RED BLOOD COUNT 3.87 X10'6 (4.70-6.10); RED CELL DISTRIBUTION WIDTH 15.7 % (11.5-14.5); WHITE BLOOD COUNT 3.7 X10'3 (4.5-11.0)
[2018-06-05 11:11] LABS: ALANINE AMINOTRANSFERASE 33 U/L (12-78); ALBUMIN 2.7 G/DL (3.4-5.0); ALBUMIN/GLOBULIN RATIO 0.7 (1.1-1.5); ALKALINE PHOSPHATASE 114 IU/L (46-116); ANION GAP 4 (8-16); ASPARTATE AMINO TRANSFERASE 21 U/L (10-37); BILIRUBIN,TOTAL 0.4 MG/DL (0.1-1.0); BLOOD UREA NITROGEN 11 MG/DL (7-18); BUN/CREATININE RATIO 10.6 (5.4-32.0); CALCIUM 8.6 MG/DL (8.5-10.1); CHLORIDE 100 MMOL/L (99-107); CREATININE 1.04 MG/DL (0.60-1.10); GLUCOSE 221 MG/DL (70-104); MAGNESIUM 1.5 MG/DL (1.5-2.4); POTASSIUM 3.8 MMOL/L (3.5-5.1); SODIUM 138 MMOL/L (135-145); TOTAL CARBON DIOXIDE 34.5 MMOL/L (24-32); TOTAL PROTEIN 6.6 G/DL (6.4-8.2); eGFR 73 ML/MIN
[2018-06-05 11:51] VITALS: BP 143/87
[2018-06-05] MEDS: dextrose ORAL solution 15 GM/59 ML bottle PO PRN (15:27)
[2018-06-05 20:00] VITALS: BP 157/98
[2018-06-05] MEDS: nortriptyline 25mg capsule PO SCH (20:36)
[2018-06-05] MEDS: insulin glargine (Lantus) pen - multi-dose SQ SCH (20:59)
[2018-06-06] VITALS: BP 159/97
[2018-06-06] MEDS: normal saline 1000ml 1,000 ML IV SCH (02:33)
[2018-06-06 05:14] LABS: BASOPHILS % (AUTO) 0.2 % (0-1); EOSINOPHILS # (AUTO) 0.1 X10'3 (0-0.9); EOSINOPHILS % (AUTO) 1.3 % (0-6); HEMATOCRIT 31.9 % (42.0-52.0); HEMOGLOBIN 10.8 g/dl (14.0-17.9); LYMPHOCYTES # (AUTO) 1.9 X10'3 (1.1-4.8); MEAN CORPUSCULAR HEMOGLOBIN 28.5 PG (27.0-31.0); MEAN CORPUSCULAR HGB CONC 33.9 % (33.0-36.5); MEAN CORPUSCULAR VOLUME 84.2 FL (78-98); MEAN PLATELET VOLUME 6.9 FL (7.4-10.4); MONOCYTES # (AUTO) 0.3 X10'3 (0-0.9); MONOCYTES % (AUTO) 6.6 % (2-12); NEUTROPHILS # (AUTO) 1.9 X10'3 (1.8-7.7); NEUTROPHILS % (AUTO) 45.9 % (42-75); PLATELET COUNT 113 X10'3 (140-440); RED BLOOD COUNT 3.79 X10'6 (4.70-6.10); RED CELL DISTRIBUTION WIDTH 16.3 % (11.5-14.5); WHITE BLOOD COUNT 4.1 X10'3 (4.5-11.0)
[2018-06-06 06:09] LABS: ALANINE AMINOTRANSFERASE 35 U/L (12-78); ALBUMIN 2.6 G/DL (3.4-5.0); ALBUMIN/GLOBULIN RATIO 0.7 (1.1-1.5); ALKALINE PHOSPHATASE 104 IU/L (46-116); ANION GAP 5 (8-16); ASPARTATE AMINO TRANSFERASE 25 U/L (10-37); BILIRUBIN,TOTAL 0.3 MG/DL (0.1-1.0); BLOOD UREA NITROGEN 11 MG/DL (7-18); BUN/CREATININE RATIO 11.6 (5.4-32.0); CALCIUM 8.6 MG/DL (8.5-10.1); CHLORIDE 101 MMOL/L (99-107); CREATININE 0.95 MG/DL (0.60-1.10); GLUCOSE 161 MG/DL (70-104); MAGNESIUM 1.5 MG/DL (1.5-2.4); POTASSIUM 3.3 MMOL/L (3.5-5.1); SODIUM 139 MMOL/L (135-145); TOTAL CARBON DIOXIDE 33.1 MMOL/L (24-32); TOTAL PROTEIN 6.4 G/DL (6.4-8.2); eGFR 81 ML/MIN
[2018-06-06 08:00] VITALS: BP 147/88
[2018-06-06] MEDS: nicotine 14mg patch - 24hr TD SCH (08:00)
[2018-06-06] MEDS ORDERED: LOPE2CAP PO (08:27)
[2018-06-06] MEDS: buPROPion SR 150mg tablet PO SCH (08:28)
[2018-06-06] MEDS: gabapentin 100mg capsule PO SCH ×2 (08:28→12:50)
[2018-06-06] MEDS: midodrine 5mg tablet PO SCH ×2 (08:28→12:51)
[2018-06-06] MEDS: pantoprazole 40mg Tablet.DR PO SCH (08:28)
[2018-06-06] MEDS: fludrocortisone acetate 0.1mg tablet PO SCH ×2 (08:28→12:51)
[2018-06-06] MEDS: ferrous gluconate 324mg tablet PO SCH (08:28)
[2018-06-06] MEDS: heparin, porcine 5000 units/ml vial SQ SCH (08:28)
[2018-06-06] MEDS: loperamide 2mg capsule PO PRN (08:31)
[2018-06-06 12:14] VITALS: BP 156/95
[2018-06-06] MEDS: insulin Lispro (HumaLOG) vial - multi-dose SQ SCH (12:54)
== END 2018-06-06 13:10 | disposition home or self-care (01) ==
LOC: ER 10:04 → ED HOLD 12:29 → SUR 3N 18:30
PROVIDERS: ADMIT Internal Medicine; ATTEND Internal Medicine
DX: K52.9 Noninfective gastroenteritis and colitis, unspecified (principal); E87.6 Hypokalemia; E87.1 Hypo-osmolality and hyponatremia; F12.90 Cannabis use, unspecified, uncomplicated; E10.8 Type 1 diabetes mellitus with unspecified complications; I10 Essential (primary) hypertension; J44.9 Chronic obstructive pulmonary disease, unspecified; N40.0 Benign prostatic hyperplasia without lower urinary tract symptoms; K27.9 Peptic ulcer, site unspecified, unspecified as acute or chronic, without hemorrhage or perforation; G93.89 Other specified disorders of brain; I95.1 Orthostatic hypotension; R29.6 Repeated falls; R42 Dizziness and giddiness; Z72.0 Tobacco use
CPT/HCPCS: 36415; 70450; 70553; 71045; 80053; 80305; 80320; 81001; 82948; 83036; 83735; 84100; 84443; 84484; 85025; 85610; 87070; 87324; 87449; 93005; 93880; 96360; 96361; 96372; 97116; 97162; 99285; A6223; A6402; A6446; A9579; G0378; J1644; J1815; J7030; 87045; 87046; 87328; 87329; 87336

== ENCOUNTER 2018-06-09 09:38 | Day surgery (SDC) | payer MEDICAID ==
[~2018-06-09 09:38] MED LIST changes: +BUPR150T8 PO; -CIPR-259 PO; +LOPE2CAP PO; +MIDO2.5T14 PO; -MIDO5TAB PO; -PRED10TA23 PO; -TAMS0.4C32 PO
[2018-06-09] MEDS ORDERED: LIDOcaine 2% 5ml jelly ONE (10:23)
== END 2018-06-09 11:26 | disposition home or self-care (01) ==
LOC: WOUND CARE 09:38
PROVIDERS: ATTEND Surgery
DX: T87.89 Other complications of amputation stump (principal); E11.622 Type 2 diabetes mellitus with other skin ulcer; L98.491 Non-pressure chronic ulcer of skin of other sites limited to breakdown of skin; E11.65 Type 2 diabetes mellitus with hyperglycemia; E11.69 Type 2 diabetes mellitus with other specified complication; M86.8X8 Other osteomyelitis, other site; I10 Essential (primary) hypertension; J44.9 Chronic obstructive pulmonary disease, unspecified; F12.90 Cannabis use, unspecified, uncomplicated; F17.210 Nicotine dependence, cigarettes, uncomplicated; F41.9 Anxiety disorder, unspecified; F32.9 Major depressive disorder, single episode, unspecified; Z90.89 Acquired absence of other organs; Z79.4 Long term (current) use of insulin; Z79.899 Other long term (current) drug therapy; Z68.27 Body mass index [BMI] 27.0-27.9, adult; Z96.612 Presence of left artificial shoulder joint; Z86.19 Personal history of other infectious and parasitic diseases; Z89.011 Acquired absence of right thumb; Z87.11 Personal history of peptic ulcer disease; Y83.5 Amputation of limb(s) as the cause of abnormal reaction of the patient, or of later complication, without mention of misadventure at the time of the procedure
CPT/HCPCS: 11042; 36416; 82948; A6021; A6206; A6209

== ENCOUNTER 2018-06-17 13:51 | Emergency (ER) | payer MEDICAID ==
[~2018-06-17] VITALS: Ht 170.2 cm; Wt 61.4 kg
[2018-06-17 14:25] LABS: BASOPHILS % (AUTO) 0.4 % (0-1); EOSINOPHILS # (AUTO) 0.1 X10'3 (0-0.9); EOSINOPHILS % (AUTO) 1.1 % (0-6); HEMATOCRIT 39.5 % (42.0-52.0); HEMOGLOBIN 13.4 g/dl (14.0-17.9); LYMPHOCYTES # (AUTO) 1.8 X10'3 (1.1-4.8); LYMPHOCYTES % (AUTO) 36.8 % (21-51); MEAN CORPUSCULAR HEMOGLOBIN 28.8 PG (27.0-31.0); MEAN CORPUSCULAR HGB CONC 33.9 % (33.0-36.5); MEAN CORPUSCULAR VOLUME 85.1 FL (78-98); MEAN PLATELET VOLUME 6.5 FL (7.4-10.4); MONOCYTES # (AUTO) 0.3 X10'3 (0-0.9); MONOCYTES % (AUTO) 6.7 % (2-12); NEUTROPHILS # (AUTO) 2.7 X10'3 (1.8-7.7); PLATELET COUNT 187 X10'3 (140-440); RED BLOOD COUNT 4.64 X10'6 (4.70-6.10); RED CELL DISTRIBUTION WIDTH 18.7 % (11.5-14.5)
[2018-06-17 14:33] LABS: PROTHROMBIN TIME 10.6 SECONDS (9.0-12.0)
[2018-06-17] MEDS ORDERED: famotidine/PF 10 mg/ml inj IV ONE (14:35)
[2018-06-17] MEDS ORDERED: metoclopramide 5 mg/ml inj IV ONE (14:35)
[2018-06-17] MEDS ORDERED: LIDOcaine Viscous 15ml cup PO ONE (14:35)
[2018-06-17] MEDS ORDERED: normal saline 1000ML IV soln IVB ONE (14:35)
[2018-06-17] MEDS ORDERED: mag hydrox/Alum hydrox/simeth 30ml oral suspension PO ONE (14:35)
[2018-06-17] MEDS ORDERED: sucralfate 1 gm tablet PO ONE (14:35)
[2018-06-17 14:39] LABS: ALANINE AMINOTRANSFERASE 20 U/L (12-78); ALBUMIN 3.2 G/DL (3.4-5.0); ALBUMIN/GLOBULIN RATIO 0.8 (1.1-1.5); ALKALINE PHOSPHATASE 113 IU/L (46-116); ANION GAP 5 (8-16); ASPARTATE AMINO TRANSFERASE 16 U/L (10-37); BILIRUBIN,TOTAL 0.5 MG/DL (0.1-1.0); BLOOD UREA NITROGEN 8 MG/DL (7-18); BUN/CREATININE RATIO 8.3 (5.4-32.0); CALCIUM 8.8 MG/DL (8.5-10.1); CHLORIDE 98 MMOL/L (99-107); CREATININE 0.96 MG/DL (0.60-1.10); GLUCOSE 244 MG/DL (70-104); SODIUM 135 MMOL/L (135-145); TOTAL CARBON DIOXIDE 32.4 MMOL/L (24-32); TOTAL PROTEIN 7.4 G/DL (6.4-8.2); eGFR 80 ML/MIN
[2018-06-17 15:11] LABS: PLATELET ESTIMATE NORMAL
[2018-06-17 15:12] LABS: ANISOCYTOSIS 2+
[2018-06-17 15:13] LABS: ELLIPTOCYTES FEW; MICROCYTOSIS 1+; POLYCHROMASIA 1+
[2018-06-17 15:16] LABS: CLARITY,URINE CLEAR (Clear); COLOR,URINE STRAW (Yellow); GLUCOSE, URINE 500 mg/dl (Neg); KETONES,URINE NEGATIVE (Neg); LEUKOCYTE ESTERASE ,URINE NEGATIVE (Neg); NITRITES, URINE NEGATIVE (Neg); OCCULT BLOOD,URINE TRACE-INTACT (Neg); PH,URINE 7.5 (4.8-8.0); PROTEIN,URINE TRACE mg/dl (Neg); UROBILINOGEN,URINE 0.2 E.U/dL (0.2-1.0)
[2018-06-17 15:18] LABS: UA COLLECTION TYPE CLN CATCH MIDSTREAM
[2018-06-17] MEDS ORDERED: PANT-47 PO (15:33)
[2018-06-17 15:34] LABS: BACTERIA,URINE FEW /HPF (Neg); WBC,URINE 0-4 /HPF (0-4)
[2018-06-17 15:35] LABS: MUCUS STRANDS NONE SEEN /LPF (Neg); SQUAMOUS EPITHELIAL CELL,UR NONE SEEN /LPF (FEW)
[2018-06-17 16:07] VITALS: BP 161/92
== END 2018-06-17 16:47 | disposition home or self-care (01) ==
LOC: ER 13:51
DX: R10.13 Epigastric pain (principal); R07.89 Other chest pain; R06.02 Shortness of breath; R19.7 Diarrhea, unspecified; R11.0 Nausea; E78.00 Pure hypercholesterolemia, unspecified; I10 Essential (primary) hypertension; J44.9 Chronic obstructive pulmonary disease, unspecified; E11.9 Type 2 diabetes mellitus without complications; F12.90 Cannabis use, unspecified, uncomplicated; Z86.19 Personal history of other infectious and parasitic diseases; Z98.890 Other specified postprocedural states; Z79.4 Long term (current) use of insulin; Z79.899 Other long term (current) drug therapy
CPT/HCPCS: 36415; 71045; 80053; 81001; 84484; 85025; 85610; 93005; 96361; 96374; 96375; 99285; J2765; J3490; J7030

== ENCOUNTER 2018-08-18 21:25 | Emergency (ER) | payer MEDICAID ==
[~2018-08-18] VITALS: Ht 170.2 cm; Wt 60.0 kg
[~2018-08-18 21:25] MED LIST changes: +PANT-47 PO
[2018-08-18 21:40] VITALS: BP 100/74
[2018-08-18] MEDS ORDERED: ACET-2119 PO (23:35)
[2018-08-18] MEDS ORDERED: NAPR-56 PO (23:35)
[2018-08-18] MEDS ORDERED: HYDROcodone/acetaminophen 10/325mg tab PO ONE (23:35)
== END 2018-08-18 23:59 | disposition home or self-care (01) ==
LOC: ER 21:25
DX: S82.092A Other fracture of left patella, initial encounter for closed fracture (principal); I10 Essential (primary) hypertension; J44.9 Chronic obstructive pulmonary disease, unspecified; E11.9 Type 2 diabetes mellitus without complications; E78.00 Pure hypercholesterolemia, unspecified; F12.90 Cannabis use, unspecified, uncomplicated; Z79.899 Other long term (current) drug therapy; Z79.4 Long term (current) use of insulin; Z90.89 Acquired absence of other organs; W22.8XXA Striking against or struck by other objects, initial encounter; Y93.01 Activity, walking, marching and hiking; Y92.89 Other specified places as the place of occurrence of the external cause; Y99.8 Other external cause status
CPT/HCPCS: 29505; 73564; 99284

== ENCOUNTER 2018-08-24 10:31 | Outpatient (CLI) | payer MEDICAID ==
[2018-08-24 10:19] VITALS: BP 121/86
[~2018-08-24 10:31] MED LIST changes: +ACET-2119 PO; +NAPR-56 PO
== END 2018-08-24 11:01 | disposition home or self-care (01) ==
LOC: ORTHO 10:31
PROVIDERS: ATTEND Nurse Practitioner Family
DX: S82.002A Unspecified fracture of left patella, initial encounter for closed fracture (principal); F12.90 Cannabis use, unspecified, uncomplicated; F17.210 Nicotine dependence, cigarettes, uncomplicated; I10 Essential (primary) hypertension; E78.00 Pure hypercholesterolemia, unspecified; J44.9 Chronic obstructive pulmonary disease, unspecified; E11.42 Type 2 diabetes mellitus with diabetic polyneuropathy; Z79.4 Long term (current) use of insulin; Z79.899 Other long term (current) drug therapy; X58.XXXA Exposure to other specified factors, initial encounter; Y93.89 Activity, other specified; Y92.89 Other specified places as the place of occurrence of the external cause; Y99.8 Other external cause status
CPT/HCPCS: 99213

== ENCOUNTER 2018-09-01 12:09 | Emergency (ER) | payer MEDICAID ==
[~2018-09-01] VITALS: Ht 170.2 cm; Wt 59.1 kg
[2018-09-01] MEDS ORDERED: acetaminophen 325mg tablet PO ONE (13:55)
[2018-09-01] MEDS ORDERED: normal saline 1000ML IV soln IVB ONE (13:55)
[2018-09-01 14:36] LABS: ALANINE AMINOTRANSFERASE 34 U/L (12-78); ALBUMIN 3.5 G/DL (3.4-5.0); ALBUMIN/GLOBULIN RATIO 0.8 (1.1-1.5); ALKALINE PHOSPHATASE 93 IU/L (46-116); ANION GAP 7 (8-16); ASPARTATE AMINO TRANSFERASE 33 U/L (10-37); BILIRUBIN,TOTAL 0.5 MG/DL (0.1-1.0); BLOOD UREA NITROGEN 19 MG/DL (7-18); BUN/CREATININE RATIO 15.7 (5.4-32.0); CALCIUM 9.2 MG/DL (8.5-10.1); CHLORIDE 101 MMOL/L (99-107); CREATININE 1.21 MG/DL (0.60-1.10); GLUCOSE 158 MG/DL (70-104); SODIUM 140 MMOL/L (135-145); TOTAL CARBON DIOXIDE 31.7 MMOL/L (24-32); TOTAL PROTEIN 7.9 G/DL (6.4-8.2); eGFR 61 ML/MIN
[2018-09-01 14:46] LABS: MAGNESIUM 1.7 MG/DL (1.5-2.4)
[2018-09-01 14:49] LABS: POTASSIUM 4.8 MMOL/L (3.5-5.1)
[2018-09-01] MEDS ORDERED: ONDA4TAB9 PO (15:09)
[2018-09-01] MEDS ORDERED: HYDR-3965 PO (15:09)
[2018-09-01 15:23] VITALS: BP 120/81
== END 2018-09-01 15:24 | disposition home or self-care (01) ==
LOC: ER 12:10
DX: M25.512 Pain in left shoulder (principal); T84.098A Other mechanical complication of other internal joint prosthesis, initial encounter; E78.00 Pure hypercholesterolemia, unspecified; I10 Essential (primary) hypertension; J44.9 Chronic obstructive pulmonary disease, unspecified; E11.9 Type 2 diabetes mellitus without complications; F12.90 Cannabis use, unspecified, uncomplicated; Z98.890 Other specified postprocedural states; Z90.89 Acquired absence of other organs; Z87.11 Personal history of peptic ulcer disease; Z79.899 Other long term (current) drug therapy; Z79.4 Long term (current) use of insulin; Y92.9 Unspecified place or not applicable
CPT/HCPCS: 29105; 36415; 80053; 83735; 83880; 84439; 84443; 84484; 93005; 96360; 99285; J7030; 85025

== ENCOUNTER 2018-09-08 10:58 | Outpatient (CLI) | payer MEDICAID ==
[2018-09-08 10:55] VITALS: BP 94/72
[~2018-09-08 10:58] MED LIST changes: +HYDR-3965 PO; +ONDA4TAB9 PO
== END 2018-09-08 11:47 | disposition home or self-care (01) ==
LOC: ORTHO 10:58
PROVIDERS: ATTEND Nurse Practitioner Family
DX: S82.002D Unspecified fracture of left patella, subsequent encounter for closed fracture with routine healing (principal); F12.90 Cannabis use, unspecified, uncomplicated; F17.210 Nicotine dependence, cigarettes, uncomplicated; I10 Essential (primary) hypertension; J44.9 Chronic obstructive pulmonary disease, unspecified; E11.9 Type 2 diabetes mellitus without complications; F32.9 Major depressive disorder, single episode, unspecified; Z79.899 Other long term (current) drug therapy; X58.XXXD Exposure to other specified factors, subsequent encounter
CPT/HCPCS: 73564; 99213

== ENCOUNTER 2018-10-06 11:11 | Outpatient (CLI) | payer MEDICAID ==
[2018-10-06 11:06] VITALS: BP 93/62
[~2018-10-06 11:11] MED LIST changes: -ACET-2119 PO; -HYDR-3965 PO; -NAPR-56 PO; -ONDA4TAB9 PO
== END 2018-10-06 11:36 | disposition home or self-care (01) ==
LOC: ORTHO 11:11
PROVIDERS: ATTEND Nurse Practitioner Family
DX: S82.092D Other fracture of left patella, subsequent encounter for closed fracture with routine healing (principal); F12.90 Cannabis use, unspecified, uncomplicated; F17.210 Nicotine dependence, cigarettes, uncomplicated; F32.9 Major depressive disorder, single episode, unspecified; I10 Essential (primary) hypertension; J44.9 Chronic obstructive pulmonary disease, unspecified; E11.9 Type 2 diabetes mellitus without complications; Z79.899 Other long term (current) drug therapy; X58.XXXD Exposure to other specified factors, subsequent encounter
CPT/HCPCS: 73560; 99213

== ENCOUNTER 2018-11-09 07:50 | Inpatient (IN) | payer MEDICAID | END 2018-11-12 15:00 | disposition home or self-care (01) | LOC: ER 07:50 → ED HOLD 11:56 → SUR 3N 16:35 ==

== ENCOUNTER 2019-02-02 12:32 | Inpatient (IN) | payer MEDICAID ==
[~2019-02-02] VITALS: Ht 175.3 cm; Wt 68.0 kg
[~2019-02-02 12:32] MED LIST changes: -FERR324T PO; -LANS15CA18 PO; -MIDO2.5T14 PO
[2019-02-02] MEDS ORDERED: normal saline 1000ML IV soln IV ONE (12:35)
--- NOTE | 2019-02-02 13:12 | NUR ---
patient refused straight catheter for urine sample. Ajay Powers notified,.
[2019-02-02] MEDS: vancomycin 250MG/10ML UD oral solution 10ML BOTTLE PO SCH ×2 (13:15→14:24)
[2019-02-02 13:48] LABS: BASOPHILS % (AUTO) 0.2 % (0-1); EOSINOPHILS % (AUTO) 0 % (0-6); HEMATOCRIT 34.3 % (42.0-52.0); HEMOGLOBIN 11.3 g/dl (14.0-17.9); LYMPHOCYTES # (AUTO) 0.6 X10'3 (1.1-4.8); LYMPHOCYTES % (AUTO) 5.1 % (21-51); MEAN CORPUSCULAR HEMOGLOBIN 28.9 PG (27.0-31.0); MEAN CORPUSCULAR VOLUME 87.5 FL (78-98); MEAN PLATELET VOLUME 7.9 FL (7.4-10.4); MONOCYTES # (AUTO) 0.7 X10'3 (0-0.9); NEUTROPHILS # (AUTO) 10.6 X10'3 (1.8-7.7); NEUTROPHILS % (AUTO) 88.7 % (42-75); PLATELET COUNT 91 X10'3 (140-440); RED BLOOD COUNT 3.93 X10'6 (4.70-6.10); RED CELL DISTRIBUTION WIDTH 13.7 % (11.5-14.5); WHITE BLOOD COUNT 11.9 X10'3 (4.5-11.0)
[2019-02-02 14:01] LABS: ALANINE AMINOTRANSFERASE 123 U/L (12-78); ALBUMIN/GLOBULIN RATIO 0.8 (1.1-1.5); ALKALINE PHOSPHATASE 125 IU/L (46-116); ANION GAP 8 (8-16); ASPARTATE AMINO TRANSFERASE 77 U/L (10-37); BILIRUBIN,TOTAL 0.8 MG/DL (0.1-1.0); BLOOD UREA NITROGEN 20 MG/DL (7-18); CALCIUM 7.9 MG/DL (8.5-10.1); CHLORIDE 101 MMOL/L (99-107); CREATININE 1.33 MG/DL (0.60-1.10); GLUCOSE 292 MG/DL (70-104); POTASSIUM 4.2 MMOL/L (3.5-5.1); SODIUM 133 MMOL/L (135-145); TOTAL CARBON DIOXIDE 24.5 MMOL/L (24-32); TOTAL PROTEIN 6.9 G/DL (6.4-8.2); eGFR 55 ML/MIN
[2019-02-02 14:02] LABS: PROTHROMBIN TIME 10.8 SECONDS (9.0-12.0)
[2019-02-02 14:03] LABS: INR 1.1 INR
[2019-02-02 14:05] LABS: TROPONIN I < 0.04 NG/ML (0.0-0.05)
[2019-02-02 14:10] LABS: PLATELET ESTIMATE DECREASED; TOTAL CELLS COUNTED 100
[2019-02-02 14:28] LABS: CLARITY,URINE CLOUDY (Clear); COLOR,URINE YELLOW (Yellow); GLUCOSE, URINE >=1000 mg/dl (Neg); KETONES,URINE NEGATIVE (Neg); LEUKOCYTE ESTERASE ,URINE NEGATIVE (Neg); NITRITES, URINE NEGATIVE (Neg); OCCULT BLOOD,URINE LARGE (Neg); PH,URINE 5.5 (4.8-8.0); PROTEIN,URINE TRACE mg/dl (Neg); UROBILINOGEN,URINE 0.2 E.U/dL (0.2-1.0)
[2019-02-02 14:31] LABS: UA COLLECTION TYPE CLN CATCH MIDSTREAM
[2019-02-02 14:49] LABS: SQUAMOUS EPITHELIAL CELL,UR FEW /LPF (FEW)
[2019-02-02 14:50] LABS: BACTERIA,URINE FEW /HPF (Neg); MUCUS STRANDS NONE SEEN /LPF (Neg); RBC,URINE 0-2 /HPF (0-2); WBC,URINE 0-4 /HPF (0-4)
[2019-02-02] MEDS ORDERED: ondansetron/PF 4mg/2ml inj IV PRN (15:20)
[2019-02-02] MEDS ORDERED: magnesium 4gm in 100ml NS 100 ML IV PRN (15:20)
[2019-02-02] MEDS ORDERED: magnesium hydroxide 30ml (MOM) UD suspension PO PRN (15:20)
[2019-02-02] MEDS ORDERED: mag hydrox/Alum hydrox/simeth 30ml oral suspension PO PRN (15:20)
[2019-02-02] MEDS ORDERED: magnesium Cl slow-release 64mg tablet PO PRN (15:20)
[2019-02-02] MEDS ORDERED: LORazepam 2 mg/ml vial IV PRN (15:20)
[2019-02-02] MEDS ORDERED: acetaminophen 325mg tablet PO PRN ×2 (15:20)
[2019-02-02] MEDS ORDERED: potassium Cl 20 mEq SR tablet PO PRN (15:20)
[2019-02-02] MEDS ORDERED: potassium Cl 40MEQ/NS 500ml 500 ML IV PRN ×2 (15:20)
[2019-02-02] MEDS ORDERED: magnesium 2GM in 50ml NS 50 ML IV PRN (15:20)
[2019-02-02] MEDS: K and/or MAG REPLACEMENT MC SCH (15:26)
[2019-02-02] MEDS ORDERED: dextrose 50%-water 50ml dispensing syringe IV PRN ×2 (15:30)
[2019-02-02] MEDS ORDERED: glucagon, human recombinant 1mg kit SUBCUT PRN (15:30)
[2019-02-02] MEDS ORDERED: dextrose ORAL solution 15 GM/59 ML bottle PO PRN (15:30)
[2019-02-02] MEDS ORDERED: MESSAGE TO PHARMACY PO ONE (15:30)
[2019-02-02 16:07] LABS: ETHANOL < 0.010 GM/DL (0.0-0.010); MAGNESIUM 1.4 MG/DL (1.5-2.4); PHOSPHORUS 1.9 MG/DL (2.3-4.5)
[2019-02-02 16:11] LABS: HEMOGLOBIN A1C 7.4 % (4.5-6.2)
[2019-02-02] MEDS: normal saline 1000ml 1,000 ML IV SCH (16:31)
[2019-02-02 16:59] LABS: URINE AMPHETAMINE SCREEN NEGATIVE (Neg); URINE BARBITUATE SCREEN NEGATIVE (Neg); URINE BENZODIAZEPINES SCREEN NEGATIVE (Neg); URINE CANNABINOID SCREEN POSITIVE (Neg); URINE COCAINE SCREEN NEGATIVE (Neg); URINE METHADONE SCREEN NEGATIVE (Neg); URINE OPIATE SCREEN NEGATIVE (Neg); URINE PHENCYCLIDINE SCREEN NEGATIVE (Neg)
[2019-02-02] MEDS: vancomycin 125mg/5ml ORAL solution 5ml UD bottle PO SCH (20:05)
[2019-02-02] MEDS: nortriptyline 25mg capsule PO SCH (20:09)
[2019-02-02] MEDS: gabapentin 100mg capsule PO SCH (20:09)
[2019-02-02] MEDS: heparin, porcine 5000 units/ml vial SQ SCH (20:10)
--- NOTE | 2019-02-02 20:14 | NUR ---
Primary RN notified of temperature as I am unfamiliar with this patient's condition. Tylenol provided and ativan to be given shortly.
--- NOTE | 2019-02-02 20:15 | NUR ---
Received report from BILL Seth. Awaiting room to be clean to accommodate patient in there.
[2019-02-02 21:00] VITALS: BP 132/79
[2019-02-02] MEDS ORDERED: NORTRIPTYLINE HCL PO SCH (21:00)
[2019-02-02] MEDS ORDERED: temazepam 15mg capsule PO PRN (21:00)
--- NOTE | 2019-02-02 21:00 | NUR ---
Patient arrived to the unit via gurney. Placed in room 340B. Patient is awake and alert on room air, slightly irritable and agitated - which seems to be his baseline. Call light and items of frequent use within reach. Will continue to monitor.
[2019-02-02] MEDS: insulin glargine (Lantus) pen - multi-dose SQ SCH (22:06)
[2019-02-03] VITALS: BP 144/89
[2019-02-03] MEDS: normal saline 1000ml 1,000 ML IV SCH ×3 (01:16→20:43)
--- NOTE | 2019-02-03 01:25 | NUR ---
Patient asked for water, told patient I'll be right back. When I came back to room with water, found patient with IV pulled out, standing up and peeing straight on the floor. Advised patient to get back in bed and to use call light next time he needs help. Patient verbalized understanding.
[2019-02-03] MEDS: vancomycin 125mg/5ml ORAL solution 5ml UD bottle PO SCH ×4 (02:00→20:43)
[2019-02-03 04:42] LABS: BASOPHILS % (AUTO) 0.2 % (0-1); EOSINOPHILS % (AUTO) 0 % (0-6); HEMATOCRIT 34.5 % (42.0-52.0); HEMOGLOBIN 11.7 g/dl (14.0-17.9); LYMPHOCYTES # (AUTO) 0.9 X10'3 (1.1-4.8); LYMPHOCYTES % (AUTO) 6.9 % (21-51); MEAN CORPUSCULAR HEMOGLOBIN 29.3 PG (27.0-31.0); MEAN CORPUSCULAR VOLUME 86.2 FL (78-98); MEAN PLATELET VOLUME 8.2 FL (7.4-10.4); MONOCYTES # (AUTO) 0.8 X10'3 (0-0.9); MONOCYTES % (AUTO) 6.5 % (2-12); NEUTROPHILS # (AUTO) 10.8 X10'3 (1.8-7.7); NEUTROPHILS % (AUTO) 86.4 % (42-75); PLATELET COUNT 85 X10'3 (140-440); RED CELL DISTRIBUTION WIDTH 14.1 % (11.5-14.5); WHITE BLOOD COUNT 12.5 X10'3 (4.5-11.0)
[2019-02-03 04:53] LABS: ALANINE AMINOTRANSFERASE 88 U/L (12-78); ALBUMIN 2.7 G/DL (3.4-5.0); ALBUMIN/GLOBULIN RATIO 0.6 (1.1-1.5); ALKALINE PHOSPHATASE 111 IU/L (46-116); ANION GAP 10 (8-16); ASPARTATE AMINO TRANSFERASE 36 U/L (10-37); BILIRUBIN,TOTAL 0.8 MG/DL (0.1-1.0); BLOOD UREA NITROGEN 16 MG/DL (7-18); BUN/CREATININE RATIO 13.6 (5.4-32.0); CALCIUM 8.2 MG/DL (8.5-10.1); CHLORIDE 100 MMOL/L (99-107); CREATININE 1.18 MG/DL (0.60-1.10); GLUCOSE 257 MG/DL (70-104); MAGNESIUM 1.8 MG/DL (1.5-2.4); PHOSPHORUS 1.8 MG/DL (2.3-4.5); POTASSIUM 3.6 MMOL/L (3.5-5.1); SODIUM 133 MMOL/L (135-145); TOTAL CARBON DIOXIDE 23.4 MMOL/L (24-32); eGFR 63 ML/MIN
--- NOTE | 2019-02-03 06:39 | NUR ---
Problems reprioritized. Patient report given, questions answered & plan of care reviewed with BILL Vincent.
[2019-02-03] MEDS: K and/or MAG REPLACEMENT MC SCH (06:40)
[2019-02-03 07:00] VITALS: BP 131/74
--- NOTE | 2019-02-03 07:00 | NUR ---
Patient in room [facility] 340. I have received report from Anayeli and had the opportunity to ask questions and assume patient care. Addendum: 02/03/19 at 1015 by Melisa Jj RN Amended: Links added.
[2019-02-03 07:31] VITALS: BP 155/92
[2019-02-03] MEDS: heparin, porcine 5000 units/ml vial SQ SCH ×2 (08:00→20:00)
[2019-02-03] MEDS: gabapentin 100mg capsule PO SCH ×3 (08:32→20:43)
[2019-02-03] MEDS: buPROPion SR 150mg tablet PO SCH (08:32)
[2019-02-03] MEDS: fludrocortisone acetate 0.1mg tablet PO SCH (08:32)
[2019-02-03] MEDS ORDERED: morphine 2 MG/ML inj. syringe IV PRN (08:55)
[2019-02-03] MEDS: insulin Lispro (HumaLOG) vial - multi-dose SQ SCH ×2 (09:01→13:15)
[2019-02-03] MEDS: HYDROcodone/acetaminophen 5mg/325mg tablet PO PRN (09:14)
--- NOTE | 2019-02-03 10:13 | NUR ---
Student Medication Administration: For this medication-pass time frame, all medication were reviewed, dispensed, administered and documented per hospital policy by Meghann MUNGUIA [facility].
[2019-02-03 10:59] LABS: TOTAL CELLS COUNTED 100
[2019-02-03 11:04] LABS: PLATELET ESTIMATE DECREASED; TOXIC GRANULATION 1+
--- NOTE | 2019-02-03 11:09 | NUR ---
DM Consult: A1C 7.3. Pt admit w/ c.diff and currently AOx1. Hx T2DM w/ recent c.diff DX per EMR. DM ed deferred at this time. MADDIE d/w RN for change to carb controlled diet from regular and Phos replacement given 1.8 today per MD approval.Mickey monitor for appropriateness for DM ed. Addendum: 02/03/19 at [address] Amended: Links added.
[2019-02-03 12:00] VITALS: BP 119/75
--- NOTE | 2019-02-03 12:10 | NUR ---
[facility] Branding Machine Operator came and saw patient. Branding Machine Operator confirmed patient has CDIFF and will fax the est results to Surgical Floor.
[2019-02-03 16:31] VITALS: BP 129/74
--- NOTE | 2019-02-03 18:24 | NUR ---
Problems reprioritized. Patient report given, questions answered & plan of care reviewed with Addendum: 02/03/19 at 1825 by Melisa Jj RN Amended: Links added.
--- NOTE | 2019-02-03 18:24 | NUR ---
Patient in room CAROLYN 352. I have received report from Melisa KHAN and had the opportunity to ask questions and assume patient care. Patient resting eyes closed respirations even, woken to eat dinner. Will continue to monitor.
[2019-02-03 19:00] VITALS: BP 149/82
[2019-02-03] MEDS: nortriptyline 25mg capsule PO SCH (20:43)
[2019-02-03] MEDS: insulin glargine (Lantus) pen - multi-dose SQ SCH (20:51)
--- NOTE | 2019-02-03 23:26 | NUR ---
Spoke to Dr. Wilkerson in regards to patient's heparin ordered BID platelet count 85. Agreed to discontinue Heparin and ordered SCDs to be placed on patient. Will continue to monitor.
[2019-02-04] VITALS: BP 140/80
[2019-02-04] MEDS: vancomycin 125mg/5ml ORAL solution 5ml UD bottle PO SCH ×4 (02:10→19:15)
[2019-02-04 04:50] VITALS: BP 130/68
--- NOTE | 2019-02-04 04:55 | NUR ---
Patient found on floor with urine on floor around him, tearful, states hit left forehead and left hip. States headache but denies pain in hip now. Notified Dr. Wilkerson, received order for left hip xray and states does not need head CT due to not on blood thinners and is 58 years old. Will continue to monitor.
[2019-02-04] MEDS: HYDROcodone/acetaminophen 5mg/325mg tablet PO PRN ×2 (05:08→13:36)
--- NOTE | 2019-02-04 06:45 | NUR ---
Problems reprioritized. Patient report given, questions answered & plan of care reviewed with Kacey KHAN. Patient resting eyes closed respirations even, bed alarm ON.
[2019-02-04 07:00] VITALS: BP 112/68
[2019-02-04] MEDS: normal saline 1000ml 1,000 ML IV SCH (07:16)
[2019-02-04] MEDS: fludrocortisone acetate 0.1mg tablet PO SCH (07:52)
[2019-02-04] MEDS: buPROPion SR 150mg tablet PO SCH (07:52)
[2019-02-04] MEDS: gabapentin 100mg capsule PO SCH ×3 (07:52→20:19)
[2019-02-04] MEDS: K and/or MAG REPLACEMENT MC SCH (08:00)
[2019-02-04 09:17] LABS: BASOPHILS % (AUTO) 0.1 % (0-1); EOSINOPHILS % (AUTO) 0 % (0-6); HEMATOCRIT 31.6 % (42.0-52.0); HEMOGLOBIN 10.9 g/dl (14.0-17.9); LYMPHOCYTES # (AUTO) 0.8 X10'3 (1.1-4.8); MEAN CORPUSCULAR HEMOGLOBIN 29.7 PG (27.0-31.0); MEAN CORPUSCULAR HGB CONC 34.5 g/dL (33.0-36.5); MEAN PLATELET VOLUME 8.2 FL (7.4-10.4); MONOCYTES # (AUTO) 0.8 X10'3 (0-0.9); NEUTROPHILS # (AUTO) 9.3 X10'3 (1.8-7.7); NEUTROPHILS % (AUTO) 85.9 % (42-75); PLATELET COUNT 96 X10'3 (140-440); RED BLOOD COUNT 3.67 X10'6 (4.70-6.10); RED CELL DISTRIBUTION WIDTH 13.7 % (11.5-14.5); WHITE BLOOD COUNT 10.8 X10'3 (4.5-11.0)
[2019-02-04 09:18] LABS: ALANINE AMINOTRANSFERASE 52 U/L (12-78); ALBUMIN 2.4 G/DL (3.4-5.0); ALBUMIN/GLOBULIN RATIO 0.6 (1.1-1.5); ALKALINE PHOSPHATASE 93 IU/L (46-116); ANION GAP 7 (8-16); ASPARTATE AMINO TRANSFERASE 19 U/L (10-37); BILIRUBIN,TOTAL 0.5 MG/DL (0.1-1.0); BLOOD UREA NITROGEN 17 MG/DL (7-18); BUN/CREATININE RATIO 14.5 (5.4-32.0); CALCIUM 8.1 MG/DL (8.5-10.1); CHLORIDE 99 MMOL/L (99-107); CREATININE 1.17 MG/DL (0.60-1.10); GLUCOSE 176 MG/DL (70-104); PHOSPHORUS 2.4 MG/DL (2.3-4.5); POTASSIUM 3.5 MMOL/L (3.5-5.1); SODIUM 131 MMOL/L (135-145); TOTAL CARBON DIOXIDE 24.7 MMOL/L (24-32); TOTAL PROTEIN 6.5 G/DL (6.4-8.2); eGFR 64 ML/MIN
[2019-02-04] MEDS ORDERED: METR-159 PO (09:22)
[2019-02-04 09:50] LABS: PLATELET ESTIMATE DECREASED; TOTAL CELLS COUNTED 100
--- NOTE | 2019-02-04 10:08 | NUR ---
Dr Alba discussed with patient about plan for home, patient wanted to go home and discharge routine done by Dr Alba. Hedy Pending sale to [facility] case planner notified and she would like patient to stay until Thursday. SS worker cannot meet him at [place] until then. Dr Alba fine with this. Dr Alba aware of current falls and concern for falls when going home. Hedy also aware of need for extra care for falls.
--- NOTE | 2019-02-04 10:17 | NUR ---
Insulin not given this AM due to possibility of discharge. Will recheck at lunch
--- NOTE | 2019-02-04 10:17 | NUR ---
Pt MRSA nasal swab positive, Dr Alba aware
[2019-02-04 12:00] VITALS: BP 138/80
[2019-02-04] MEDS: insulin Lispro (HumaLOG) vial - multi-dose SQ SCH ×2 (13:32→19:19)
[2019-02-04 18:00] VITALS: BP 130/72
--- NOTE | 2019-02-04 18:30 | NUR ---
Patient in room [facility] 352. I have received report from Kacey KHAN and had the opportunity to ask questions and assume patient care.
[2019-02-04] MEDS: nortriptyline 25mg capsule PO SCH (20:19)
[2019-02-04] MEDS: insulin glargine (Lantus) pen - multi-dose SQ SCH (21:15)
[2019-02-05] VITALS: BP 139/95
[2019-02-05] MEDS: normal saline 1000ml 1,000 ML IV SCH ×2 (00:36→05:36)
[2019-02-05] MEDS: vancomycin 125mg/5ml ORAL solution 5ml UD bottle PO SCH ×4 (01:20→20:56)
[2019-02-05 06:01] LABS: BASOPHILS % (AUTO) 0.1 % (0-1); EOSINOPHILS % (AUTO) 0.1 % (0-6); HEMATOCRIT 30.8 % (42.0-52.0); HEMOGLOBIN 10.7 g/dl (14.0-17.9); LYMPHOCYTES # (AUTO) 0.8 X10'3 (1.1-4.8); LYMPHOCYTES % (AUTO) 8.8 % (21-51); MEAN CORPUSCULAR HEMOGLOBIN 29.7 PG (27.0-31.0); MEAN CORPUSCULAR HGB CONC 34.6 g/dL (33.0-36.5); MEAN CORPUSCULAR VOLUME 85.7 FL (78-98); MEAN PLATELET VOLUME 8.2 FL (7.4-10.4); MONOCYTES # (AUTO) 0.7 X10'3 (0-0.9); MONOCYTES % (AUTO) 7.4 % (2-12); NEUTROPHILS # (AUTO) 7.8 X10'3 (1.8-7.7); NEUTROPHILS % (AUTO) 83.6 % (42-75); PLATELET COUNT 96 X10'3 (140-440); RED BLOOD COUNT 3.59 X10'6 (4.70-6.10); RED CELL DISTRIBUTION WIDTH 13.9 % (11.5-14.5); WHITE BLOOD COUNT 9.4 X10'3 (4.5-11.0)
--- NOTE | 2019-02-05 06:20 | NUR ---
Patient in room [facility] 352. I have received report from BILL Villarreal and had the opportunity to ask questions and assume patient care.
[2019-02-05 06:28] LABS: ALANINE AMINOTRANSFERASE 37 U/L (12-78); ALBUMIN 2.1 G/DL (3.4-5.0); ALBUMIN/GLOBULIN RATIO 0.5 (1.1-1.5); ALKALINE PHOSPHATASE 78 IU/L (46-116); ANION GAP 9 (8-16); ASPARTATE AMINO TRANSFERASE 16 U/L (10-37); BILIRUBIN,TOTAL 0.5 MG/DL (0.1-1.0); BLOOD UREA NITROGEN 15 MG/DL (7-18); BUN/CREATININE RATIO 15.2 (5.4-32.0); CHLORIDE 98 MMOL/L (99-107); CREATININE 0.99 MG/DL (0.60-1.10); GLUCOSE 100 MG/DL (70-104); MAGNESIUM 1.7 MG/DL (1.5-2.4); PHOSPHORUS 1.8 MG/DL (2.3-4.5); SODIUM 131 MMOL/L (135-145); TOTAL CARBON DIOXIDE 24.5 MMOL/L (24-32); TOTAL PROTEIN 6.2 G/DL (6.4-8.2); eGFR 77 ML/MIN
[2019-02-05 06:30] VITALS: BP 120/68
--- NOTE | 2019-02-05 06:39 | NUR ---
Problems reprioritized. Patient report given, questions answered & plan of care reviewed with EDMUND RN.
[2019-02-05 07:16] LABS: ANISOCYTOSIS 1+; MICROCYTOSIS 1+; PLATELET ESTIMATE DECREASED; TOTAL CELLS COUNTED 100
[2019-02-05] MEDS: K and/or MAG REPLACEMENT MC SCH (07:21)
[2019-02-05] MEDS ORDERED: Neutra Phos packet PO ONE (08:55)
[2019-02-05] MEDS: gabapentin 100mg capsule PO SCH ×3 (09:58→20:56)
[2019-02-05] MEDS: buPROPion SR 150mg tablet PO SCH (09:58)
[2019-02-05] MEDS: fludrocortisone acetate 0.1mg tablet PO SCH (09:58)
[2019-02-05] MEDS: insulin Lispro (HumaLOG) vial - multi-dose SQ SCH (10:03)
[2019-02-05] MEDS: potassium Cl 20 mEq SR tablet PO PRN ×2 (10:31→14:41)
[2019-02-05 12:00] VITALS: BP 146/81
[2019-02-05] MEDS: dextrose ORAL solution 15 GM/59 ML bottle PO PRN (12:45)
[2019-02-05] MEDS ORDERED: magnesium Cl slow-release 64mg tablet PO PRN (18:10)
[2019-02-05] MEDS ORDERED: potassium Cl 20 mEq SR tablet PO PRN ×2 (18:10)
[2019-02-05] MEDS ORDERED: potassium Cl 40MEQ/NS 500ml 500 ML IV PRN ×2 (18:10)
[2019-02-05] MEDS ORDERED: magnesium 4gm in 100ml NS 100 ML IV PRN (18:10)
[2019-02-05] MEDS ORDERED: magnesium 2GM in 50ml NS 50 ML IV PRN (18:10)
--- NOTE | 2019-02-05 18:30 | NUR ---
Problems reprioritized. Patient report given, questions answered & plan of care reviewed with BILL Buchanan.
--- NOTE | 2019-02-05 18:35 | NUR ---
Received report pt was attempting to get out of bed to go smoke a cigarette informed pt he could not, put pt back in bed, made sure call alarm was on, set him up high enough to pt could eat dinner
[2019-02-05 19:00] VITALS: BP 131/82
[2019-02-05] MEDS: HYDROcodone/acetaminophen 5mg/325mg tablet PO PRN (19:20)
[2019-02-05] MEDS: nortriptyline 25mg capsule PO SCH (20:56)
[2019-02-05] MEDS: insulin glargine (Lantus) pen - multi-dose SQ SCH (21:00)
[2019-02-06 00:15] VITALS: BP 134/82
[2019-02-06] MEDS: vancomycin 125mg/5ml ORAL solution 5ml UD bottle PO SCH ×4 (02:11→19:13)
[2019-02-06 05:57] LABS: BASOPHILS % (AUTO) 0 % (0-1); EOSINOPHILS % (AUTO) 0.4 % (0-6); HEMATOCRIT 32.4 % (42.0-52.0); HEMOGLOBIN 11.3 g/dl (14.0-17.9); LYMPHOCYTES # (AUTO) 0.7 X10'3 (1.1-4.8); LYMPHOCYTES % (AUTO) 7.3 % (21-51); MEAN CORPUSCULAR HEMOGLOBIN 29.9 PG (27.0-31.0); MEAN CORPUSCULAR HGB CONC 34.9 g/dL (33.0-36.5); MEAN CORPUSCULAR VOLUME 85.7 FL (78-98); MEAN PLATELET VOLUME 7.8 FL (7.4-10.4); MONOCYTES # (AUTO) 0.9 X10'3 (0-0.9); MONOCYTES % (AUTO) 9.4 % (2-12); NEUTROPHILS # (AUTO) 7.7 X10'3 (1.8-7.7); NEUTROPHILS % (AUTO) 82.9 % (42-75); PLATELET COUNT 115 X10'3 (140-440); RED BLOOD COUNT 3.78 X10'6 (4.70-6.10); RED CELL DISTRIBUTION WIDTH 13.8 % (11.5-14.5); WHITE BLOOD COUNT 9.3 X10'3 (4.5-11.0)
--- NOTE | 2019-02-06 06:00 | NUR ---
Problems reprioritized. Patient report given, questions answered & plan of care reviewed with BILL Buchanan. Addendum: 02/06/19 at 1234 by Taya Fraser RN Above note incorrect. CORRECT NOTE=Patient in room [facility] 352. I have received report from BILL Buchanan and had the opportunity to ask questions and assume patient care.
--- NOTE | 2019-02-06 06:06 | NUR ---
Gave report to Taya RN pt is resting on RA in no apparent distress, call light and items of freq use within reach.
[2019-02-06 06:14] LABS: ALANINE AMINOTRANSFERASE 33 U/L (12-78); ALBUMIN 2.2 G/DL (3.4-5.0); ALBUMIN/GLOBULIN RATIO 0.5 (1.1-1.5); ALKALINE PHOSPHATASE 84 IU/L (46-116); ANION GAP 9 (8-16); ASPARTATE AMINO TRANSFERASE 22 U/L (10-37); BILIRUBIN,TOTAL 0.5 MG/DL (0.1-1.0); BLOOD UREA NITROGEN 15 MG/DL (7-18); BUN/CREATININE RATIO 13.8 (5.4-32.0); CALCIUM 8.6 MG/DL (8.5-10.1); CHLORIDE 100 MMOL/L (99-107); CREATININE 1.09 MG/DL (0.60-1.10); GLUCOSE 131 MG/DL (70-104); MAGNESIUM 1.7 MG/DL (1.5-2.4); PHOSPHORUS 2.2 MG/DL (2.3-4.5); POTASSIUM 3.7 MMOL/L (3.5-5.1); SODIUM 134 MMOL/L (135-145); TOTAL CARBON DIOXIDE 25.2 MMOL/L (24-32); TOTAL PROTEIN 6.5 G/DL (6.4-8.2); eGFR 69 ML/MIN
[2019-02-06 06:30] VITALS: BP 150/85
[2019-02-06] MEDS: K and/or MAG REPLACEMENT MC SCH (06:59)
[2019-02-06] MEDS: gabapentin 100mg capsule PO SCH ×3 (07:55→21:18)
[2019-02-06] MEDS: fludrocortisone acetate 0.1mg tablet PO SCH (07:55)
[2019-02-06] MEDS: buPROPion SR 150mg tablet PO SCH (07:55)
[2019-02-06] MEDS: HYDROcodone/acetaminophen 5mg/325mg tablet PO PRN ×2 (07:56→21:17)
[2019-02-06] MEDS: insulin Lispro (HumaLOG) vial - multi-dose SQ SCH (09:26)
[2019-02-06 11:21] VITALS: BP 127/67
[2019-02-06 18:00] VITALS: BP 110/62
--- NOTE | 2019-02-06 18:27 | NUR ---
Received report from BILL Bain. Patient is awake and alert on room air, in no apparent distress. Call light and items of frequent use within reach. Bed alarms on and audible. Will continue to monitor.
--- NOTE | 2019-02-06 19:04 | NUR ---
Nutritional/Correctional insulin for dinner will not be administered: Pt had 7 grams of carbs and BG level before dinner was 90mg/dL. Will continue to monitor.
[2019-02-06] MEDS: insulin glargine (Lantus) pen - multi-dose SQ SCH (21:00)
[2019-02-06] MEDS: nortriptyline 25mg capsule PO SCH (21:17)
[2019-02-07] VITALS: BP 128/74
[2019-02-07] MEDS: vancomycin 125mg/5ml ORAL solution 5ml UD bottle PO SCH ×3 (02:43→13:14)
[2019-02-07 05:33] LABS: BASOPHILS % (AUTO) 0.2 % (0-1); EOSINOPHILS % (AUTO) 0.2 % (0-6); HEMATOCRIT 29.2 % (42.0-52.0); LYMPHOCYTES # (AUTO) 0.3 X10'3 (1.1-4.8); LYMPHOCYTES % (AUTO) 4.7 % (21-51); MEAN CORPUSCULAR HEMOGLOBIN 29.2 PG (27.0-31.0); MEAN CORPUSCULAR HGB CONC 34.3 g/dL (33.0-36.5); MEAN PLATELET VOLUME 7.7 FL (7.4-10.4); MONOCYTES # (AUTO) 0.8 X10'3 (0-0.9); MONOCYTES % (AUTO) 10.6 % (2-12); NEUTROPHILS # (AUTO) 6.1 X10'3 (1.8-7.7); NEUTROPHILS % (AUTO) 84.3 % (42-75); PLATELET COUNT 107 X10'3 (140-440); RED BLOOD COUNT 3.44 X10'6 (4.70-6.10); RED CELL DISTRIBUTION WIDTH 13.8 % (11.5-14.5); WHITE BLOOD COUNT 7.3 X10'3 (4.5-11.0)
[2019-02-07 05:59] LABS: ALANINE AMINOTRANSFERASE 31 U/L (12-78); ALBUMIN/GLOBULIN RATIO 0.5 (1.1-1.5); ALKALINE PHOSPHATASE 80 IU/L (46-116); ANION GAP 10 (8-16); ASPARTATE AMINO TRANSFERASE 47 U/L (10-37); BILIRUBIN,TOTAL 0.7 MG/DL (0.1-1.0); BLOOD UREA NITROGEN 15 MG/DL (7-18); BUN/CREATININE RATIO 12.6 (5.4-32.0); CALCIUM 8.4 MG/DL (8.5-10.1); CHLORIDE 95 MMOL/L (99-107); CREATININE 1.19 MG/DL (0.60-1.10); GLUCOSE 94 MG/DL (70-104); MAGNESIUM 1.7 MG/DL (1.5-2.4); PHOSPHORUS 2.8 MG/DL (2.3-4.5); POTASSIUM 3.5 MMOL/L (3.5-5.1); SODIUM 129 MMOL/L (135-145); TOTAL CARBON DIOXIDE 24.3 MMOL/L (24-32); TOTAL PROTEIN 6.2 G/DL (6.4-8.2); eGFR 62 ML/MIN
[2019-02-07 06:00] VITALS: BP 113/66
--- NOTE | 2019-02-07 06:10 | NUR ---
Patient in room [facility] 352. I have received report from BILL Guadalupe and had the opportunity to ask questions and assume patient care.
--- NOTE | 2019-02-07 06:20 | NUR ---
Problems reprioritized. Patient report given, questions answered & plan of care reviewed with BILL Bain.
[2019-02-07] MEDS: K and/or MAG REPLACEMENT MC SCH (06:37)
[2019-02-07] MEDS: gabapentin 100mg capsule PO SCH ×2 (08:30→13:14)
[2019-02-07] MEDS: fludrocortisone acetate 0.1mg tablet PO SCH (08:30)
[2019-02-07] MEDS: buPROPion SR 150mg tablet PO SCH (08:30)
[2019-02-07] MEDS: HYDROcodone/acetaminophen 5mg/325mg tablet PO PRN (08:32)
[2019-02-07] MEDS: insulin Lispro (HumaLOG) vial - multi-dose SQ SCH (09:01)
[2019-02-07] MEDS: dextrose ORAL solution 15 GM/59 ML bottle PO PRN (12:49)
[2019-02-07 12:54] VITALS: BP 116/69
--- NOTE | 2019-02-07 14:40 | NUR ---
DC inst provided to pt. No IV. All belongings sent w/pt. WC to private vehicle. Pt DC >3h from the time it was ordered 2/2 pt's ride came as soon as he could.
[2019-02-08] MEDS ORDERED: GLIM4TAB79 PO (10:46)
== END 2019-02-07 14:45 | disposition home or self-care (01) | DRG 720 ==
LOC: ER 12:32 → ED HOLD 15:16 → SUR 3N 21:00
PROVIDERS: ADMIT Family Medicine; ATTEND Internal Medicine
DX: A41.9 Sepsis, unspecified organism (principal); E43 Unspecified severe protein-calorie malnutrition; N17.9 Acute kidney failure, unspecified; G92 Toxic encephalopathy; E11.22 Type 2 diabetes mellitus with diabetic chronic kidney disease; D69.6 Thrombocytopenia, unspecified; A04.72 Enterocolitis due to Clostridium difficile, not specified as recurrent; E11.40 Type 2 diabetes mellitus with diabetic neuropathy, unspecified; E87.1 Hypo-osmolality and hyponatremia; G89.29 Other chronic pain; I12.9 Hypertensive chronic kidney disease with stage 1 through stage 4 chronic kidney disease, or unspecified chronic kidney disease; B19.20 Unspecified viral hepatitis C without hepatic coma; D64.9 Anemia, unspecified; E83.39 Other disorders of phosphorus metabolism; E87.6 Hypokalemia; G93.89 Other specified disorders of brain; F12.10 Cannabis abuse, uncomplicated; F32.9 Major depressive disorder, single episode, unspecified; F17.200 Nicotine dependence, unspecified, uncomplicated; G47.00 Insomnia, unspecified; E27.40 Unspecified adrenocortical insufficiency; E78.00 Pure hypercholesterolemia, unspecified; J44.9 Chronic obstructive pulmonary disease, unspecified; N18.9 Chronic kidney disease, unspecified; Z86.73 Personal history of transient ischemic attack (TIA), and cerebral infarction without residual deficits; Z87.11 Personal history of peptic ulcer disease; Z68.22 Body mass index [BMI] 22.0-22.9, adult; Z87.442 Personal history of urinary calculi; Z79.4 Long term (current) use of insulin
CPT/HCPCS: 36415; 70450; 71045; 73501; 80053; 80305; 80320; 81001; 82948; 83036; 83605; 83735; 84100; 84484; 85025; 85610; 87040; 87070; 93005; 97110; 97116; 97162; 97530; G0378; J1644; J1815; J2060; J2405; J3475; J7030

== ENCOUNTER 2019-02-08 10:06 | Emergency (ER) | payer MEDICAID ==
[~2019-02-08] VITALS: Ht 170.2 cm; Wt 64.5 kg
[~2019-02-08 10:06] MED LIST changes: -LOPE2CAP PO; +METR-159 PO
[2019-02-08] MEDS ORDERED: GLIM4TAB79 PO (10:46)
--- NOTE | 2019-02-08 10:49 | NUR ---
WILLI KHAN FROM [facility] WHOLE PERSON CARE CHECKED IN ON PT TODAY AND CALLED EMS, HER PH# [phone], REVIEWED PT MEDICATIONS WITH HER SHE IS RN WHO MANAGES PT MEDS AT HOME AND SHE IS LEAVING.
--- NOTE | 2019-02-08 10:49 | NUR ---
PLACED ON CDIFF PRECAUTIONS DUE TO RECENT ADMISSION AND DIAGNOSIS OF CDIFF WITH ABX TREATMENT X 3-4 DAYS
--- NOTE | 2019-02-08 11:06 | NUR ---
NOTIFIED MELISSA STEPHENS OF PATIENT STATUS, RECEIVED VERBAL ORDER FOR 1 L NS FLUIDS, 4 MG MORPHINE, AND 4 MG ZOFRAN NOW
[2019-02-08 11:07] LABS: BASOPHILS % (AUTO) 0.3 % (0-1); EOSINOPHILS % (AUTO) 0 % (0-6); HEMATOCRIT 31.4 % (42.0-52.0); HEMOGLOBIN 10.5 g/dl (14.0-17.9); LYMPHOCYTES # (AUTO) 0.4 X10'3 (1.1-4.8); LYMPHOCYTES % (AUTO) 4.6 % (21-51); MEAN CORPUSCULAR HEMOGLOBIN 28.9 PG (27.0-31.0); MEAN CORPUSCULAR HGB CONC 33.5 g/dL (33.0-36.5); MEAN CORPUSCULAR VOLUME 86.3 FL (78-98); MEAN PLATELET VOLUME 7.6 FL (7.4-10.4); MONOCYTES # (AUTO) 0.6 X10'3 (0-0.9); MONOCYTES % (AUTO) 6.3 % (2-12); NEUTROPHILS # (AUTO) 8.3 X10'3 (1.8-7.7); NEUTROPHILS % (AUTO) 88.8 % (42-75); PLATELET COUNT 162 X10'3 (140-440); RED BLOOD COUNT 3.64 X10'6 (4.70-6.10); RED CELL DISTRIBUTION WIDTH 14.1 % (11.5-14.5); WHITE BLOOD COUNT 9.4 X10'3 (4.5-11.0)
[2019-02-08] MEDS ORDERED: morphine 4 MG/ML inj SYRINge IV ONE (11:10)
[2019-02-08] MEDS ORDERED: normal saline 1000ml 1,000 ML IV ONE (11:10)
[2019-02-08] MEDS ORDERED: ondansetron/PF 4mg/2ml inj IV ONE (11:10)
--- NOTE | 2019-02-08 11:17 | NUR ---
PT AT XRAY NOW, WILL MEDICATE WHEN PT COMES BACK
[2019-02-08 11:21] LABS: ALANINE AMINOTRANSFERASE 34 U/L (12-78); ALBUMIN 2.2 G/DL (3.4-5.0); ALBUMIN/GLOBULIN RATIO 0.4 (1.1-1.5); ALKALINE PHOSPHATASE 96 IU/L (46-116); ANION GAP 10 (8-16); ASPARTATE AMINO TRANSFERASE 52 U/L (10-37); BILIRUBIN,TOTAL 0.7 MG/DL (0.1-1.0); BLOOD UREA NITROGEN 26 MG/DL (7-18); BUN/CREATININE RATIO 17.9 (5.4-32.0); CALCIUM 8.7 MG/DL (8.5-10.1); CHLORIDE 90 MMOL/L (99-107); CREATININE 1.45 MG/DL (0.60-1.10); GLUCOSE 120 MG/DL (70-104); POTASSIUM 3.5 MMOL/L (3.5-5.1); SODIUM 125 MMOL/L (135-145); TOTAL CARBON DIOXIDE 25.1 MMOL/L (24-32); TOTAL PROTEIN 7.1 G/DL (6.4-8.2); eGFR 50 ML/MIN
[2019-02-08 11:24] LABS: INR 1.1 INR; PARTIAL THROMBOPLASTIN TIME 31 SECONDS (22-32); PROTHROMBIN TIME 11.4 SECONDS (9.0-12.0)
--- NOTE | 2019-02-08 11:38 | NUR ---
MEDICATED PATIENT PER ORDERS, ORIENTED PT TO ROOM AND CALL LIGHT, AND PROVIDED URINAL, PT AWARE SAMPLE IS NEEDED.
--- NOTE | 2019-02-08 12:19 | NUR ---
DR. JEONG AT BEDSIDE ASSESSING PT. ABRASION RIGHT FOREHEAD, PAIN AT SHOULDER AND
--- NOTE | 2019-02-08 12:20 | NUR ---
PAIN LEFTM SHOULDER AND LEFT HIP ON SCALE 7-8 PAINSCALE.
[2019-02-08] MEDS ORDERED: ipratropium/albuterol 3ml nebule NEB ONE (12:35)
[2019-02-08 12:41] LABS: TOTAL CELLS COUNTED 100
[2019-02-08 12:42] LABS: PLATELET ESTIMATE NORMAL; TOXIC GRANULATION 1+
--- NOTE | 2019-02-08 12:43 | NUR ---
ATTEMPTED TO STR CATH PT UNSUCCESSFUL. NO URINE. PT HAS URINATED EARLIER.
[2019-02-08 13:03] LABS: C-REACTIVE PROTEIN 25.04 MG/DL (0.0-0.5)
--- NOTE | 2019-02-08 13:22 | NUR ---
PT GOING TO CT [facility]IA [facility] WITH [facility]IE [facility]ING [employer] NOW PER ORDERS
[2019-02-08] MEDS ORDERED: vancomycin/NS 1 GM ADD-VANTAGE 250 ML IV ONE (13:25)
[2019-02-08] MEDS ORDERED: piperacillin/tazo 3.375gm/50ml 50 ML IV ONE (13:25)
[2019-02-08] MEDS ORDERED: iohexol 300mg/ml 100ml inj. ONE (13:30)
--- NOTE | 2019-02-08 14:05 | NUR ---
DR ROSENTHAL AT BEDSIDE FOR EVALUATION
--- NOTE | 2019-02-08 14:13 | NUR ---
DR ROSENTHAL AT BEDSIDE ORDERED CT SCAN OF HEAD FOR POSITIVE LOC, PT NOT TO GO TO FLOOR UNTIL CT OF HEAD IS CLEAR.
--- NOTE | 2019-02-08 14:57 | NUR ---
REMOVED PT ARUN PT STATES URINATED, PT INFORMED NEED URINE SAMPLE, GAVE URINAL. PT GOING TO CT VIA [facility] WITH LEAD TECHNOLOGIST IN CYTOGENETICS PER ORDERS NOW
[2019-02-08] MEDS ORDERED: fentaNYL/PF 50MCG/1 ML 2ML syringe IV ONE (15:35)
--- NOTE | 2019-02-08 15:35 | NUR ---
PT C/O INCREASING LEFT SHOULDER PAIN NOW 06/18, DR JEONG INFORMED, RECEIVED VERBAL ORDER FOR 50 MCG FENTANYL IV ONCE NOW.
[2019-02-08 17:06] VITALS: BP 114/72
[2019-02-08 17:29] LABS: CLARITY,URINE CLEAR (Clear); COLOR,URINE YELLOW (Yellow); GLUCOSE, URINE NEGATIVE (Neg); KETONES,URINE 15 mg/dl (Neg); LEUKOCYTE ESTERASE ,URINE NEGATIVE (Neg); NITRITES, URINE NEGATIVE (Neg); OCCULT BLOOD,URINE SMALL (Neg); PROTEIN,URINE 30 mg/dl (Neg); UROBILINOGEN,URINE 0.2 E.U/dL (0.2-1.0)
[2019-02-08 17:33] LABS: UA COLLECTION TYPE VOIDED
[2019-02-08 17:35] LABS: WBC,URINE 0-4 /HPF (0-4)
[2019-02-08 17:36] LABS: BACTERIA,URINE FEW /HPF (Neg); RBC,URINE 0-2 /HPF (0-2); SQUAMOUS EPITHELIAL CELL,UR NONE SEEN /LPF (FEW)
[2019-02-08 17:37] LABS: WBC CLUMPS,URINE FEW /HPF (NEGATIVE)
== END 2019-02-08 18:10 | disposition short-term general hospital (02) ==
LOC: ER 10:07 → ED HOLD 13:29 → UNDOADMIN 13:29 → UNDODISIN 18:07 → ER 18:10 → CANBEDREQ 19:58
DX: S06.5X0A Traumatic subdural hemorrhage without loss of consciousness, initial encounter (principal); S40.012A Contusion of left shoulder, initial encounter; L02.414 Cutaneous abscess of left upper limb; J18.9 Pneumonia, unspecified organism; R29.6 Repeated falls; E78.00 Pure hypercholesterolemia, unspecified; I10 Essential (primary) hypertension; J44.9 Chronic obstructive pulmonary disease, unspecified; E11.9 Type 2 diabetes mellitus without complications; F12.90 Cannabis use, unspecified, uncomplicated; Z90.89 Acquired absence of other organs; Z86.19 Personal history of other infectious and parasitic diseases; Z98.890 Other specified postprocedural states; Z79.4 Long term (current) use of insulin; Z79.899 Other long term (current) drug therapy; W01.0XXA Fall on same level from slipping, tripping and stumbling without subsequent striking against object, initial encounter; Y93.89 Activity, other specified; Y92.89 Other specified places as the place of occurrence of the external cause; Y99.9 Unspecified external cause status
CPT/HCPCS: 36415; 70450; 71045; 71260; 73030; 73060; 73201; 73502; 80053; 81001; 83605; 84145; 84484; 85025; 85610; 85651; 85730; 86140; 87040; 87077; 87186; 93005; 94640; 96365; 96367; 96375; 99285; J2270; J2405; J2543; J3010; J3370; J7030; Q9967; 96361; 96374; G0378

== ENCOUNTER 2019-04-01 09:00 | Day surgery (SDC) | payer MEDICAID ==
[~2019-04-01 09:00] MED LIST changes: +GLIM4TAB79 PO; -METR-159 PO
--- NOTE | 2019-04-01 11:00 | NUR ---
Patient ambulated independently from [facility] accompanied by RN from [facility] and was admitted to outpatient wound care for physician visit with Quincy Hussein MD. Dressing removed, wound cleansed. New patient assessment completed by Mayra Faye RN. 0932 - blood glucose 153. Patient instructed that elevated blood sugars delay healing of the wound and can cause further complications including but not limited to amputation of toes or feet. 1000 - Dr. Hussein at bedside accompanied by RN. Wound assessed, time out performed by MD/RN. Wound debrided as detailed in the physician progress/procedure note. Plan of care discussed with patient. Dressings placed per MD orders. Xray to bedside to perform ordered test. Patient instructed on the signs and symptoms of infection and to call the Wound Center if any occur or to go to the ED if we are closed: Increased pain in wound Increase in drainage from the wound Redness in the skin surrounding the wound Bleeding from the wound Temperature of 101 or greater Patient instructed that the weight of their body puts a large amount of pressure on their wounds. This pressure keeps the new tissue from growing and inhibits new blood vessels from forming. Explained that, if they continue to bear weight on a body part that has a wound, the time it takes to heal the wound increases, the wound may get worse or the wound may not heal at all. Patient and RN verbalized understanding of all discharge instructions and plan of care and patient ambulated accompanied by RN independently out to [facility] in stable condition with no sign or symptom of distress at time of discharge.
[2019-04-01] MEDS ORDERED: INSU100V9 SQ (14:39)
[2019-04-01] MEDS ORDERED: LINE600T36 PO (14:39)
== END 2019-04-01 10:40 | disposition home or self-care (01) ==
LOC: WOUND CARE 09:00
PROVIDERS: ATTEND Surgery
DX: T81.89XD Other complications of procedures, not elsewhere classified, subsequent encounter (principal); E11.622 Type 2 diabetes mellitus with other skin ulcer; L98.491 Non-pressure chronic ulcer of skin of other sites limited to breakdown of skin; E11.65 Type 2 diabetes mellitus with hyperglycemia; E11.69 Type 2 diabetes mellitus with other specified complication; M86.8X8 Other osteomyelitis, other site; I10 Essential (primary) hypertension; J44.9 Chronic obstructive pulmonary disease, unspecified; F12.90 Cannabis use, unspecified, uncomplicated; F17.210 Nicotine dependence, cigarettes, uncomplicated; F41.9 Anxiety disorder, unspecified; F32.9 Major depressive disorder, single episode, unspecified; Z90.89 Acquired absence of other organs; Z79.4 Long term (current) use of insulin; Z79.899 Other long term (current) drug therapy; Z68.27 Body mass index [BMI] 27.0-27.9, adult; Z96.612 Presence of left artificial shoulder joint; Z86.19 Personal history of other infectious and parasitic diseases; Z89.011 Acquired absence of right thumb; Z87.11 Personal history of peptic ulcer disease; Y83.8 Other surgical procedures as the cause of abnormal reaction of the patient, or of later complication, without mention of misadventure at the time of the procedure
CPT/HCPCS: 36416; 73030; 82948; 87070; 87075; 87102; 97597; A6021; A6212

== ENCOUNTER 2019-04-08 08:55 | Day surgery (SDC) | payer MEDICAID ==
[~2019-04-08 08:55] MED LIST changes: +INSU100V9 SQ; +LINE600T36 PO
[2019-04-08] MEDS ORDERED: Silvasorb gel 45gm tube TP ONE (10:02)
--- NOTE | 2019-04-08 10:15 | NUR ---
Patient ambulated independently from [facility] accompanied by [facility] RN and was admitted to outpatient wound care for physician visit with Quincy Hussein MD. Dressing removed, wound cleansed and lidocaine applied per order. Patient assessed for changes in conditions, medications and medical history. Dr. Hussein at bedside accompanied by RN. Wound assessed, time out performed by MD/RN. Wound debrided as detailed in the physician progress/procedure note. Plan of care discussed with patient. Dressings placed per MD orders. Patient instructed on the signs and symptoms of infection and to call the Wound Center if any occur or to go to the ED if we are closed: Increased pain in wound Increase in drainage from the wound Redness in the skin surrounding the wound Bleeding from the wound Temperature of 101 or greater Patient instructed that the weight of their body puts a large amount of pressure on their wounds. This pressure keeps the new tissue from growing and inhibits new blood vessels from forming. Explained that, if they continue to bear weight on a body part that has a wound, the time it takes to heal the wound increases, the wound may get worse or the wound may not heal at all. Patient and his RN verbalized understanding of all discharge instructions and plan of care and patient ambulated independently accompanied by his RN out to [facility] in stable condition with no sign or symptom of distress at time of discharge.
== END 2019-04-08 10:08 | disposition home or self-care (01) ==
LOC: WOUND CARE 08:55
PROVIDERS: ATTEND Surgery
DX: T81.89XD Other complications of procedures, not elsewhere classified, subsequent encounter (principal); E11.622 Type 2 diabetes mellitus with other skin ulcer; L98.492 Non-pressure chronic ulcer of skin of other sites with fat layer exposed; E11.65 Type 2 diabetes mellitus with hyperglycemia; E11.69 Type 2 diabetes mellitus with other specified complication; M86.8X8 Other osteomyelitis, other site; I10 Essential (primary) hypertension; J44.9 Chronic obstructive pulmonary disease, unspecified; F12.90 Cannabis use, unspecified, uncomplicated; F17.210 Nicotine dependence, cigarettes, uncomplicated; F41.9 Anxiety disorder, unspecified; F32.9 Major depressive disorder, single episode, unspecified; Z90.89 Acquired absence of other organs; Z79.4 Long term (current) use of insulin; Z79.899 Other long term (current) drug therapy; Z68.27 Body mass index [BMI] 27.0-27.9, adult; Z96.612 Presence of left artificial shoulder joint; Z86.19 Personal history of other infectious and parasitic diseases; Z89.011 Acquired absence of right thumb; Z87.11 Personal history of peptic ulcer disease; Y83.8 Other surgical procedures as the cause of abnormal reaction of the patient, or of later complication, without mention of misadventure at the time of the procedure
CPT/HCPCS: 97597; A6212

== ENCOUNTER 2019-04-14 09:48 | Day surgery (SDC) | payer MEDICAID ==
[2019-04-14] MEDS ORDERED: LIDOcaine 1%/PF 5ML 10 MG/ML VIAL ONE (11:08)
[2019-04-14] MEDS ORDERED: mupirocin 2% ointment 22GM ONE (12:05)
--- NOTE | 2019-04-14 14:31 | NUR ---
Patient ambulated independently from [facility] and was admitted to outpatient wound care for physician visit with Quincy Hussein MD. Dressing removed, wound cleansed and lidocaine applied per order. Patient assessed for changes in conditions, medications and medical history. Dr. Hussein at bedside accompanied by RN. Wound assessed, time out performed by MD/RN. Wound debrided as detailed in the physician progress/procedure note. An excision of a malignant lesion was done. Plan of care discussed with patient. Dressings placed per MD orders. Patient instructed on the signs and symptoms of infection and to call the Wound Center if any occur or to go to the ED if we are closed: Increased pain in wound Increase in drainage from the wound Redness in the skin surrounding the wound Bleeding from the wound Temperature of 101 or greater Patient instructed that the weight of their body puts a large amount of pressure on their wounds. This pressure keeps the new tissue from growing and inhibits new blood vessels from forming. Explained that, if they continue to bear weight on a body part that has a wound, the time it takes to heal the wound increases, the wound may get worse or the wound may not heal at all. Patient verbalized understanding of all discharge instructions and plan of care and ambulated independently out to [facility] in stable condition with no sign or symptom of distress at time of discharge. Addendum: 04/14/19 at 1439 by Zaida Faye RN Amended: Links added.
== END 2019-04-14 12:30 | disposition home or self-care (01) ==
LOC: WOUND CARE 09:48
PROVIDERS: ATTEND Surgery
DX: T81.89XD Other complications of procedures, not elsewhere classified, subsequent encounter (principal); E11.622 Type 2 diabetes mellitus with other skin ulcer; L98.492 Non-pressure chronic ulcer of skin of other sites with fat layer exposed; E11.65 Type 2 diabetes mellitus with hyperglycemia; E11.69 Type 2 diabetes mellitus with other specified complication; M86.8X8 Other osteomyelitis, other site; I10 Essential (primary) hypertension; J44.9 Chronic obstructive pulmonary disease, unspecified; F12.90 Cannabis use, unspecified, uncomplicated; F17.210 Nicotine dependence, cigarettes, uncomplicated; F41.9 Anxiety disorder, unspecified; F32.9 Major depressive disorder, single episode, unspecified; Z90.89 Acquired absence of other organs; Z79.4 Long term (current) use of insulin; Z79.899 Other long term (current) drug therapy; Z68.27 Body mass index [BMI] 27.0-27.9, adult; Z96.612 Presence of left artificial shoulder joint; Z86.19 Personal history of other infectious and parasitic diseases; Z89.011 Acquired absence of right thumb; Z87.11 Personal history of peptic ulcer disease; Y83.8 Other surgical procedures as the cause of abnormal reaction of the patient, or of later complication, without mention of misadventure at the time of the procedure
CPT/HCPCS: 11623; 97597; J2001; A6021; A6212

== ENCOUNTER 2019-07-28 11:16 | Emergency (ER) | payer MEDICAID ==
[~2019-07-28] VITALS: Ht 170.2 cm; Wt 63.0 kg
[~2019-07-28 11:16] MED LIST changes: +GLIM4TAB4 PO; -GLIM4TAB79 PO; +LINE600T11 PO; -LINE600T36 PO
[2019-07-28 11:52] LABS: BASOPHILS % (AUTO) 0.6 % (0-1); EOSINOPHILS # (AUTO) 0.1 X10'3 (0-0.9); EOSINOPHILS % (AUTO) 1.9 % (0-6); HEMATOCRIT 34.1 % (42.0-52.0); HEMOGLOBIN 11.6 g/dl (14.0-17.9); LYMPHOCYTES # (AUTO) 2.6 X10'3 (1.1-4.8); LYMPHOCYTES % (AUTO) 45.9 % (21-51); MEAN CORPUSCULAR HEMOGLOBIN 29.1 PG (27.0-31.0); MEAN CORPUSCULAR HGB CONC 34.1 g/dL (33.0-36.5); MEAN CORPUSCULAR VOLUME 85.4 FL (78-98); MEAN PLATELET VOLUME 7.6 FL (7.4-10.4); MONOCYTES # (AUTO) 0.3 X10'3 (0-0.9); MONOCYTES % (AUTO) 6.1 % (2-12); NEUTROPHILS # (AUTO) 2.5 X10'3 (1.8-7.7); NEUTROPHILS % (AUTO) 45.5 % (42-75); PLATELET COUNT 133 X10'3 (140-440); RED BLOOD COUNT 3.99 X10'6 (4.70-6.10); RED CELL DISTRIBUTION WIDTH 15.5 % (11.5-14.5); WHITE BLOOD COUNT 5.6 X10'3 (4.5-11.0)
[2019-07-28 11:59] LABS: ALANINE AMINOTRANSFERASE 36 U/L (12-78); ALKALINE PHOSPHATASE 105 IU/L (46-116); ANION GAP 11 (8-16); ASPARTATE AMINO TRANSFERASE 22 U/L (10-37); BILIRUBIN,TOTAL 0.4 MG/DL (0.1-1.0); BLOOD UREA NITROGEN 39 MG/DL (7-18); BUN/CREATININE RATIO 21.5 (5.4-32.0); CALCIUM 9.2 MG/DL (8.5-10.1); CHLORIDE 108 MMOL/L (99-107); CREATININE 1.81 MG/DL (0.60-1.10); GLUCOSE 138 MG/DL (70-104); POTASSIUM 5.2 MMOL/L (3.5-5.1); SODIUM 143 MMOL/L (135-145); TOTAL CARBON DIOXIDE 24.1 MMOL/L (24-32); TOTAL PROTEIN 8.2 G/DL (6.4-8.2); eGFR 38 ML/MIN
[2019-07-28 12:34] VITALS: BP 112/73
== END 2019-07-28 12:36 | disposition home or self-care (01) ==
LOC: ER 11:18
DX: R79.9 Abnormal finding of blood chemistry, unspecified (principal); E78.00 Pure hypercholesterolemia, unspecified; I10 Essential (primary) hypertension; J44.9 Chronic obstructive pulmonary disease, unspecified; E11.9 Type 2 diabetes mellitus without complications; F17.200 Nicotine dependence, unspecified, uncomplicated; F12.90 Cannabis use, unspecified, uncomplicated; Z56.0 Unemployment, unspecified; Z98.890 Other specified postprocedural states; Z90.89 Acquired absence of other organs; Z79.899 Other long term (current) drug therapy; Z79.4 Long term (current) use of insulin
CPT/HCPCS: 36415; 80053; 85025; 99283

== ENCOUNTER 2019-10-20 14:06 | Emergency (ER) | payer MEDICAID ==
[~2019-10-20] VITALS: Ht 170.2 cm; Wt 59.1 kg
[2019-10-20 14:38] LABS: BASOPHILS % (AUTO) 0.5 % (0-1); EOSINOPHILS % (AUTO) 0.1 % (0-6); HEMOGLOBIN 11.8 g/dl (14.0-17.9); LYMPHOCYTES % (AUTO) 10.3 % (21-51); MEAN CORPUSCULAR HEMOGLOBIN 29.4 PG (27.0-31.0); MEAN CORPUSCULAR HGB CONC 34.8 g/dL (33.0-36.5); MEAN CORPUSCULAR VOLUME 84.6 FL (78-98); MEAN PLATELET VOLUME 8.2 FL (7.4-10.4); MONOCYTES # (AUTO) 0.9 X10'3 (0-0.9); MONOCYTES % (AUTO) 9.2 % (2-12); NEUTROPHILS % (AUTO) 79.9 % (42-75); PLATELET COUNT 200 X10'3 (140-440); RED BLOOD COUNT 4.02 X10'6 (4.70-6.10); RED CELL DISTRIBUTION WIDTH 13.6 % (11.5-14.5)
[2019-10-20 14:52] LABS: ALANINE AMINOTRANSFERASE 33 U/L (12-78); ALBUMIN 3.2 G/DL (3.4-5.0); ALBUMIN/GLOBULIN RATIO 0.7 (1.1-1.5); ALKALINE PHOSPHATASE 109 IU/L (46-116); ANION GAP 10 (8-16); ASPARTATE AMINO TRANSFERASE 24 U/L (10-37); BILIRUBIN,TOTAL 0.6 MG/DL (0.1-1.0); BLOOD UREA NITROGEN 34 MG/DL (7-18); CALCIUM 8.2 MG/DL (8.5-10.1); CHLORIDE 95 MMOL/L (99-107); CREATININE 1.89 MG/DL (0.60-1.10); GLUCOSE 421 MG/DL (70-104); LIPASE 166 U/L (73-393); SODIUM 134 MMOL/L (135-145); TOTAL CARBON DIOXIDE 29.4 MMOL/L (24-32); eGFR 36 ML/MIN
[2019-10-20] MEDS ORDERED: ondansetron/PF 4mg/2ml inj IV ONE (16:55)
[2019-10-20] MEDS ORDERED: normal saline 1000ML IV soln IVB ONE (16:55)
[2019-10-20 18:17] LABS: CLARITY,URINE CLOUDY (Clear); COLOR,URINE YELLOW (Yellow); GLUCOSE, URINE >=1000 mg/dl (Neg); KETONES,URINE NEGATIVE (Neg); LEUKOCYTE ESTERASE ,URINE MODERATE (Neg); NITRITES, URINE NEGATIVE (Neg); OCCULT BLOOD,URINE LARGE (Neg); PROTEIN,URINE 30 mg/dl (Neg); UROBILINOGEN,URINE 0.2 E.U/dL (0.2-1.0)
[2019-10-20 18:30] LABS: UA COLLECTION TYPE CLN CATCH MIDSTREAM
[2019-10-20 18:35] LABS: BACTERIA,URINE 3+ /HPF (Neg); MUCUS STRANDS NONE SEEN /LPF (Neg); RBC,URINE 50-100 /HPF (0-2); SQUAMOUS EPITHELIAL CELL,UR FEW /LPF (FEW); TRANSITIONAL EPI CELLS,URINE FEW /HPF; WBC,URINE TNTC /HPF (0-4)
--- NOTE | 2019-10-20 18:48 | NUR ---
no stool//diarrhea, pt is supine in bed, vss, giving fluids
[2019-10-20] MEDS ORDERED: insulin regular, human 10 units/0.1 ml syringe SQ ONE (18:55)
--- NOTE | 2019-10-20 20:07 | NUR ---
U/S CALLED BACK AT 20:[address]
[2019-10-20] MEDS ORDERED: LIDOcaine 2% 10ml TOPICAL JELLY (Urojet) MM ONE (20:15)
[2019-10-20] MEDS ORDERED: ibuprofen 200mg tablet PO ONE (21:10)
--- NOTE | 2019-10-20 21:37 | NUR ---
F/U BG 274
[2019-10-20] MEDS ORDERED: FLO0.4C PO (21:50)
[2019-10-20] MEDS ORDERED: ONDA8TAB6 PO (21:50)
--- NOTE | 2019-10-20 22:29 | NUR ---
ASSISTING RN WITH PT CARE, PT SAID HE HAS A RIDE HOME WITH PAT, HIS CAREGIVER, UNABLE TO CONTACT CAREGIVER AT [phone], HE SAID CAREGIVER WAS GOING TO RETURN TO ER AROUND 2200,
--- NOTE | 2019-10-20 22:51 | NUR ---
PT'S CAREGIVER AT BEDSIDE TO TAKE PT HOME, EDUCATED CAREGIVER ON CARE OF STEELE CATHETER, VERBALIZED UNDERSTANDING DC INSTRUCTIONS, NO QUESTIONS, GAVE PT LEG BAG, CAREGIVER WILL HELP PT CHANGE TO LEG BAG IN AM
[2019-10-20 22:53] VITALS: BP 138/78
== END 2019-10-20 22:55 | disposition home or self-care (01) ==
LOC: ER 14:06
DX: R33.9 Retention of urine, unspecified (principal); R10.9 Unspecified abdominal pain; K80.20 Calculus of gallbladder without cholecystitis without obstruction; R11.2 Nausea with vomiting, unspecified; E78.00 Pure hypercholesterolemia, unspecified; I10 Essential (primary) hypertension; J44.9 Chronic obstructive pulmonary disease, unspecified; E11.9 Type 2 diabetes mellitus without complications; F12.90 Cannabis use, unspecified, uncomplicated; Z86.19 Personal history of other infectious and parasitic diseases; Z98.890 Other specified postprocedural states; Z60.2 Problems related to living alone; Z56.0 Unemployment, unspecified; Z79.4 Long term (current) use of insulin; Z79.899 Other long term (current) drug therapy
CPT/HCPCS: 36415; 51702; 74176; 76700; 80053; 81001; 82948; 83690; 85025; 87077; 87088; 87186; 96361; 96372; 96374; 99284; J1815; J2405; J7030

== ENCOUNTER 2019-10-23 10:47 | Emergency (ER) | payer MEDICAID ==
[~2019-10-23] VITALS: Ht 170.2 cm; Wt 59.0 kg
[~2019-10-23 10:47] MED LIST changes: +FLO0.4C PO; +ONDA8TAB6 PO
[2019-10-23] MEDS ORDERED: ondansetron/PF 4mg/2ml inj IV ONE ×2 (11:25→11:45)
[2019-10-23] MEDS ORDERED: morphine 4 MG/ML inj SYRINge IV PRN ×2 (11:25→11:45)
[2019-10-23] MEDS ORDERED: normal saline 1000ML IV soln IVB ONE ×3 (11:25→12:15)
[2019-10-23 11:51] LABS: BASOPHILS % (AUTO) 0.5 % (0-1); EOSINOPHILS % (AUTO) 0.2 % (0-6); HEMATOCRIT 32.2 % (42.0-52.0); HEMOGLOBIN 11.4 g/dl (14.0-17.9); LYMPHOCYTES # (AUTO) 0.7 X10'3 (1.1-4.8); LYMPHOCYTES % (AUTO) 8.2 % (21-51); MEAN CORPUSCULAR HEMOGLOBIN 29.1 PG (27.0-31.0); MEAN CORPUSCULAR HGB CONC 35.5 g/dL (33.0-36.5); MEAN CORPUSCULAR VOLUME 82.1 FL (78-98); MEAN PLATELET VOLUME 7.6 FL (7.4-10.4); MONOCYTES # (AUTO) 0.6 X10'3 (0-0.9); MONOCYTES % (AUTO) 7.3 % (2-12); NEUTROPHILS # (AUTO) 7.4 X10'3 (1.8-7.7); NEUTROPHILS % (AUTO) 83.8 % (42-75); PLATELET COUNT 167 X10'3 (140-440); RED BLOOD COUNT 3.92 X10'6 (4.70-6.10); RED CELL DISTRIBUTION WIDTH 13.6 % (11.5-14.5); WHITE BLOOD COUNT 8.8 X10'3 (4.5-11.0)
[2019-10-23 12:04] LABS: ALANINE AMINOTRANSFERASE 22 U/L (12-78); ALBUMIN 2.6 G/DL (3.4-5.0); ALBUMIN/GLOBULIN RATIO 0.6 (1.1-1.5); ALKALINE PHOSPHATASE 96 IU/L (46-116); ANION GAP 6 (8-16); ASPARTATE AMINO TRANSFERASE 12 U/L (10-37); BILIRUBIN,TOTAL 0.6 MG/DL (0.1-1.0); BLOOD UREA NITROGEN 21 MG/DL (7-18); BUN/CREATININE RATIO 15.2 (5.4-32.0); CHLORIDE 92 MMOL/L (99-107); CREATININE 1.38 MG/DL (0.60-1.10); GLUCOSE 312 MG/DL (70-104); LIPASE 246 U/L (73-393); POTASSIUM 3.2 MMOL/L (3.5-5.1); SODIUM 130 MMOL/L (135-145); TOTAL CARBON DIOXIDE 32.5 MMOL/L (24-32); TOTAL PROTEIN 6.9 G/DL (6.4-8.2); eGFR 52 ML/MIN
[2019-10-23 12:33] LABS: CLARITY,URINE SLIGHTLY CLOUDY (Clear); GLUCOSE, URINE >=1000 mg/dl (Neg); KETONES,URINE TRACE mg/dl (Neg); LEUKOCYTE ESTERASE ,URINE TRACE (Neg); NITRITES, URINE NEGATIVE (Neg); OCCULT BLOOD,URINE LARGE (Neg); PROTEIN,URINE 100 mg/dl (Neg); UROBILINOGEN,URINE 0.2 E.U/dL (0.2-1.0)
[2019-10-23 12:35] LABS: COLOR,URINE Pink (Yellow); UA COLLECTION TYPE FOLEY CATH
[2019-10-23 12:43] LABS: WBC,URINE 30-50 /HPF (0-4)
[2019-10-23 12:44] LABS: RBC,URINE TNTC /HPF (0-2)
[2019-10-23 12:46] LABS: BACTERIA,URINE 1+ /HPF (Neg)
[2019-10-23 12:47] LABS: SQUAMOUS EPITHELIAL CELL,UR NONE SEEN /LPF (FEW); WBC CLUMPS,URINE FEW /HPF (NEGATIVE)
[2019-10-23 12:54] VITALS: BP 166/76
[2019-10-23] MEDS ORDERED: CefTRIAXone 2gm/D5W 50ml 50 ML IV ONE (13:15)
[2019-10-23] MEDS ORDERED: CIPR-230 PO (14:17)
== END 2019-10-23 15:09 | disposition home or self-care (01) ==
LOC: ER 10:48
DX: N39.0 Urinary tract infection, site not specified (principal); R19.7 Diarrhea, unspecified; R11.2 Nausea with vomiting, unspecified; E78.00 Pure hypercholesterolemia, unspecified; I10 Essential (primary) hypertension; J44.9 Chronic obstructive pulmonary disease, unspecified; E11.9 Type 2 diabetes mellitus without complications; F12.90 Cannabis use, unspecified, uncomplicated; Z79.899 Other long term (current) drug therapy; Z79.4 Long term (current) use of insulin; Z87.11 Personal history of peptic ulcer disease; Z98.890 Other specified postprocedural states; Z90.89 Acquired absence of other organs; Z86.19 Personal history of other infectious and parasitic diseases; Z60.2 Problems related to living alone; Z56.0 Unemployment, unspecified
CPT/HCPCS: 36415; 51702; 80053; 81001; 83690; 85025; 87077; 87088; 87186; 96361; 96365; 96375; 99284; J0696; J2270; J2405; J7030

== ENCOUNTER 2019-10-31 11:58 | Emergency (ER) | payer MEDICAID ==
[~2019-10-31] VITALS: Ht 170.2 cm; Wt 63.6 kg
[~2019-10-31 11:58] MED LIST changes: +CIPR-230 PO
[2019-10-31 12:19] VITALS: BP 88/52
== END 2019-10-31 16:12 | disposition left against medical advice (07) ==
LOC: ER 11:59
DX: Z46.6 Encounter for fitting and adjustment of urinary device (principal); Z53.21 Procedure and treatment not carried out due to patient leaving prior to being seen by health care provider

== ENCOUNTER 2019-11-07 12:18 | Emergency (ER) | payer MEDICAID ==
[~2019-11-07] VITALS: Ht 170.2 cm; Wt 59.1 kg
[~2019-11-07 12:18] MED LIST changes: -CIPR-230 PO
[2019-11-07] MEDS ORDERED: normal saline 1000ML IV soln IVB ONE (12:25)
[2019-11-07 13:12] LABS: BASOPHILS % (AUTO) 0.4 % (0-1); EOSINOPHILS # (AUTO) 0.1 X10'3 (0-0.9); EOSINOPHILS % (AUTO) 1.3 % (0-6); HEMATOCRIT 32.9 % (42.0-52.0); HEMOGLOBIN 11.2 g/dl (14.0-17.9); LYMPHOCYTES # (AUTO) 1.8 X10'3 (1.1-4.8); LYMPHOCYTES % (AUTO) 30.5 % (21-51); MEAN CORPUSCULAR HEMOGLOBIN 28.9 PG (27.0-31.0); MEAN CORPUSCULAR VOLUME 85.1 FL (78-98); MEAN PLATELET VOLUME 7.5 FL (7.4-10.4); MONOCYTES # (AUTO) 0.3 X10'3 (0-0.9); MONOCYTES % (AUTO) 4.6 % (2-12); NEUTROPHILS # (AUTO) 3.7 X10'3 (1.8-7.7); NEUTROPHILS % (AUTO) 63.2 % (42-75); PLATELET COUNT 119 X10'3 (140-440); RED BLOOD COUNT 3.87 X10'6 (4.70-6.10); RED CELL DISTRIBUTION WIDTH 14.9 % (11.5-14.5); WHITE BLOOD COUNT 5.8 X10'3 (4.5-11.0)
[2019-11-07 13:27] LABS: ALANINE AMINOTRANSFERASE 23 U/L (12-78); ALBUMIN 3.3 G/DL (3.4-5.0); ALBUMIN/GLOBULIN RATIO 0.7 (1.1-1.5); ALKALINE PHOSPHATASE 105 IU/L (46-116); ANION GAP 3 (8-16); ASPARTATE AMINO TRANSFERASE 20 U/L (10-37); BILIRUBIN,TOTAL 0.4 MG/DL (0.1-1.0); BLOOD UREA NITROGEN 21 MG/DL (7-18); BUN/CREATININE RATIO 14.9 (5.4-32.0); CALCIUM 8.9 MG/DL (8.5-10.1); CHLORIDE 100 MMOL/L (99-107); CREATININE 1.41 MG/DL (0.60-1.10); GLUCOSE 219 MG/DL (70-104); POTASSIUM 4.3 MMOL/L (3.5-5.1); SODIUM 136 MMOL/L (135-145); eGFR 51 ML/MIN
--- NOTE | 2019-11-07 14:31 | NUR ---
Bladder scan completed post void - approximately 800ml noted. Pt reports no pain or discomfort at this time but is requesting food.
[2019-11-07 14:33] LABS: CLARITY,URINE CLOUDY (Clear); COLOR,URINE STRAW (Yellow); GLUCOSE, URINE NEGATIVE (Neg); KETONES,URINE NEGATIVE (Neg); LEUKOCYTE ESTERASE ,URINE LARGE (Neg); NITRITES, URINE NEGATIVE (Neg); OCCULT BLOOD,URINE LARGE (Neg); PROTEIN,URINE 30 mg/dl (Neg); UROBILINOGEN,URINE 0.2 E.U/dL (0.2-1.0)
[2019-11-07 14:37] LABS: UA COLLECTION TYPE URINAL
[2019-11-07 14:39] LABS: MUCUS STRANDS NONE SEEN /LPF (Neg); SQUAMOUS EPITHELIAL CELL,UR NONE SEEN /LPF (FEW)
--- NOTE | 2019-11-07 14:40 | NUR ---
Pt given PO fluid challenge to encourage another void prior to inserting another ty cath per MAURO Wilson's instructions. Pt verbalized understanding. Pt given a sandwich with his fluid challenge with verbal ok from the provider.
[2019-11-07 14:41] LABS: WBC,URINE 50-100 /HPF (0-4)
[2019-11-07 14:42] LABS: BACTERIA,URINE FEW /HPF (Neg); CAL OXALATE CRYSTALS FEW /HPF (NEGATIVE); WBC CLUMPS,URINE FEW /HPF (NEGATIVE); YEAST MANY /HPF (NEGATIVE)
[2019-11-07] MEDS ORDERED: CefTRIAXone/D5W-Rocephin 1gm 50 ML IV ONE (15:10)
--- NOTE | 2019-11-07 15:24 | NUR ---
MAURO Wilson spoke with the patient about the need to place a new cath. Pt stated "you aren't putting that cath back in. I would rather fucking first!" Steve spoke with the patient at length about the risk of leaving the bladder without placing the cath. Pt verbalized understanding of the risks. Pt's antibiotic infusion started.
[2019-11-07] MEDS ORDERED: FLO0.4C PO (15:25)
[2019-11-07] MEDS ORDERED: CEPH250T PO (15:25)
--- NOTE | 2019-11-07 15:56 | NUR ---
Staff nurse is attempting to phone the patient's family member/caregiver to pick him up for transport to home upon discharge/ama from the dept.
--- NOTE | 2019-11-07 15:58 | NUR ---
TC TO CAREGIVER, PILY . PAT INFORMED THAT ADRY WILL BE DC'D AMA DUE TO THE FACT THAT HE IS REFUSING TO HAVE THE CATHETER REPLACED. CAREGIVER ON THE WAY HERE AND WILL TRY TO ADVOCATE FOR PATIENT TO COOPERATE WITH TREATMENT PLAN.
[2019-11-07 16:58] VITALS: BP 108/59
--- NOTE | 2019-11-10 08:13 | NUR ---
CALLED LEFT A MESSAGE. NEED HIM TO CALL BACK ON A LAB RESULT SO WE CAN CALL HIM IN AN RX FOR FLUCONAZOLE 200MG PO DAILY.
--- NOTE | 2019-11-10 08:15 | NUR ---
PT. HAS YEAST IN HIS URINE. THIS IS AN ANTI-FUNGAL
== END 2019-11-07 16:44 | disposition left against medical advice (07) ==
LOC: ER 12:18
DX: N39.0 Urinary tract infection, site not specified (principal); I12.9 Hypertensive chronic kidney disease with stage 1 through stage 4 chronic kidney disease, or unspecified chronic kidney disease; E11.22 Type 2 diabetes mellitus with diabetic chronic kidney disease; N18.9 Chronic kidney disease, unspecified; E78.00 Pure hypercholesterolemia, unspecified; J44.9 Chronic obstructive pulmonary disease, unspecified; F12.90 Cannabis use, unspecified, uncomplicated; R31.0 Gross hematuria; Z86.73 Personal history of transient ischemic attack (TIA), and cerebral infarction without residual deficits; Z86.19 Personal history of other infectious and parasitic diseases; Z90.89 Acquired absence of other organs; Z98.890 Other specified postprocedural states; Z56.0 Unemployment, unspecified; Z60.2 Problems related to living alone; Z79.4 Long term (current) use of insulin; Z79.899 Other long term (current) drug therapy
CPT/HCPCS: 36415; 80053; 81001; 85025; 87088; 96365; 99284; J0696; J7030

== ENCOUNTER 2020-12-26 12:05 | Inpatient (IN) | payer MEDICAID ==
[~2020-12-26] VITALS: Ht 170.2 cm; Wt 48.9 kg
[~2020-12-26 12:05] MED LIST changes: -FLO0.4C PO; -GLIM4TAB4 PO; +GLIM4TAB7 PO
[2020-12-26] MEDS ORDERED: normal saline 1000ML IV soln IVB ONE ×2 (12:25→15:40)
[2020-12-26] MEDS ORDERED: ondansetron/PF 4mg/2ml inj IV ONE (12:25)
[2020-12-26] MEDS ORDERED: morphine 4 MG/ML inj SYRINge IV PRN (12:25)
[2020-12-26 12:53] LABS: HEMATOCRIT 36.6 % (42.0-52.0); RED BLOOD COUNT 4.42 X10'6 (4.70-6.10); WHITE BLOOD COUNT 13.7 X10'3 (4.5-11.0)
[2020-12-26 12:54] LABS: BASOPHILS % (AUTO) 0.2 % (0-1); EOSINOPHILS % (AUTO) 0.2 % (0-6); LYMPHOCYTES # (AUTO) 1.3 X10'3 (1.1-4.8); LYMPHOCYTES % (AUTO) 9.5 % (21-51); MEAN CORPUSCULAR HEMOGLOBIN 27.3 PG (27.0-31.0); MEAN CORPUSCULAR HGB CONC 32.9 g/dL (33.0-36.5); MEAN CORPUSCULAR VOLUME 82.8 FL (78-98); MONOCYTES # (AUTO) 1.4 X10'3 (0-0.9); NEUTROPHILS # (AUTO) 10.9 X10'3 (1.8-7.7); NEUTROPHILS % (AUTO) 80.1 % (42-75); PLATELET COUNT 183 X10'3 (140-440); RED CELL DISTRIBUTION WIDTH 16.4 % (11.5-14.5)
[2020-12-26 13:07] LABS: ALANINE AMINOTRANSFERASE 15 U/L (12-78); ALBUMIN 3.1 G/DL (3.4-5.0); ALBUMIN/GLOBULIN RATIO 0.6 (1.1-1.5); ALKALINE PHOSPHATASE 108 IU/L (46-116); ANION GAP 17 (8-16); ASPARTATE AMINO TRANSFERASE 13 U/L (10-37); BILIRUBIN,TOTAL 0.5 MG/DL (0.1-1.0); BLOOD UREA NITROGEN 109 MG/DL (7-18); BUN/CREATININE RATIO 27.5 (5.4-32.0); CALCIUM 8.5 MG/DL (8.5-10.1); CHLORIDE 93 MMOL/L (99-107); CREATININE 3.96 MG/DL (0.60-1.10); GLUCOSE 434 MG/DL (70-104); LIPASE 249 U/L (73-393); POTASSIUM 5.6 MMOL/L (3.5-5.1); SODIUM 125 MMOL/L (135-145); eGFR 15 ML/MIN
[2020-12-26] MEDS ORDERED: LIDOcaine 2% 10ml TOPICAL JELLY (Urojet) TP ONE (15:15)
[2020-12-26] MEDS ORDERED: insulin regular, human 10 units/0.1 ml syringe IV ONE (15:40)
[2020-12-26 16:35] LABS: ABG BASE EXCESS -14.7 mmol/L (-2.0-2.0); ABG HCO3 12.9 mmol/L (22.0-26.0); ABG PCO2 (T) 35.7 mmHg (35.0-48.0); ABG PO2 (T) 61.3 mmHg (75.0-100.0); ALLEN'S TEST Yes; FCOHb 2.7 % (0.0-3.9); FO2Hb 86.6 % (94-97); PATIENT TEMPERATURE 36.3; TOTAL HEMOGLOBIN 11.4 G/dl (14.0-18.0)
[2020-12-26] MEDS ORDERED: piperacillin/tazo 3.375gm/50ml 50 ML IV ONE (17:00)
[2020-12-26] MEDS ORDERED: FLO0.4C PO (17:18)
[2020-12-26] MEDS ORDERED: sodium bicarbonate (8.4%) inj. 1 MEQ/ML ML IV ONE ×2 (17:45)
[2020-12-26 18:09] LABS: CLARITY,URINE CLOUDY (Clear); COLOR,URINE STRAW (Yellow); GLUCOSE, URINE >=1000 mg/dl (Neg); KETONES,URINE TRACE mg/dl (Neg); LEUKOCYTE ESTERASE ,URINE MODERATE (Neg); NITRITES, URINE NEGATIVE (Neg); OCCULT BLOOD,URINE LARGE (Neg); PH,URINE 5.5 (4.8-8.0); PROTEIN,URINE 30 mg/dl (Neg); UROBILINOGEN,URINE 0.2 E.U/dL (0.2-1.0)
[2020-12-26 18:11] LABS: UA COLLECTION TYPE OTHER
[2020-12-26] MEDS: sodium bicarbonate (8.4%) inj. 150 MEQ in dextrose 5%-water 1,000 ML IV SCH (18:16)
[2020-12-26 18:18] LABS: BACTERIA,URINE 3+ /HPF (Neg); SQUAMOUS EPITHELIAL CELL,UR FEW /LPF (FEW); WBC CLUMPS,URINE MANY /HPF (NEGATIVE); WBC,URINE 50-100 /HPF (0-4)
[2020-12-26] MEDS ORDERED: ALBU8.5H8 IH (18:23)
[2020-12-26] MEDS ORDERED: CHOL500050 PO (18:32)
[2020-12-26] MEDS ORDERED: sodium bicarbonate (8.4%) 1 mEq/ml syringe IV ONE (18:45)
[2020-12-26] MEDS ORDERED: acetaminophen 325mg tablet PO PRN ×2 (21:05)
[2020-12-26] MEDS ORDERED: magnesium hydroxide 30ml (MOM) UD suspension PO PRN (21:05)
[2020-12-26] MEDS ORDERED: ondansetron/PF 4mg/2ml inj IV PRN (21:05)
--- NOTE | 2020-12-26 21:13 | NUR ---
lunch relief for Nancy Joaquin
--- NOTE | 2020-12-26 21:13 | NUR ---
pt back from CT, sat 85-89% on ra. pt was placed on oxygen at 2lpm, o2 sat 94% now
[2020-12-26] MEDS ORDERED: dextrose ORAL solution 15 GM/59 ML bottle PO PRN ×3 (21:15→21:30)
[2020-12-26] MEDS: insulin Lispro (HumaLOG) vial - multi-dose SQ SCH (21:15)
--- NOTE | 2020-12-26 21:17 | NUR ---
Decubitus ulcer noted to pt's left trochanter area while in CT, primary RN notified
[2020-12-26] MEDS ORDERED: dextrose 50%-water 50ml dispensing syringe IV PRN ×2 (21:30)
[2020-12-26] MEDS ORDERED: glucagon, human recombinant 1mg kit SUBCUT PRN (21:30)
[2020-12-26 21:46] LABS: BASOPHILS % (AUTO) 0.2 % (0-1); EOSINOPHILS # (AUTO) 0.1 X10'3 (0-0.9); EOSINOPHILS % (AUTO) 0.6 % (0-6); HEMATOCRIT 31.4 % (42.0-52.0); HEMOGLOBIN 10.6 g/dl (14.0-17.9); LYMPHOCYTES # (AUTO) 1.2 X10'3 (1.1-4.8); LYMPHOCYTES % (AUTO) 14.8 % (21-51); MEAN CORPUSCULAR HEMOGLOBIN 27.6 PG (27.0-31.0); MEAN CORPUSCULAR HGB CONC 33.7 g/dL (33.0-36.5); MEAN CORPUSCULAR VOLUME 81.9 FL (78-98); MEAN PLATELET VOLUME 7.5 FL (7.4-10.4); MONOCYTES # (AUTO) 0.8 X10'3 (0-0.9); MONOCYTES % (AUTO) 9.3 % (2-12); NEUTROPHILS # (AUTO) 6.3 X10'3 (1.8-7.7); NEUTROPHILS % (AUTO) 75.1 % (42-75); PLATELET COUNT 148 X10'3 (140-440); RED BLOOD COUNT 3.84 X10'6 (4.70-6.10); RED CELL DISTRIBUTION WIDTH 16.1 % (11.5-14.5); WHITE BLOOD COUNT 8.4 X10'3 (4.5-11.0)
[2020-12-26 22:00] LABS: ALANINE AMINOTRANSFERASE 13 U/L (12-78); ALBUMIN 2.6 G/DL (3.4-5.0); ALBUMIN/GLOBULIN RATIO 0.7 (1.1-1.5); ALKALINE PHOSPHATASE 90 IU/L (46-116); ANION GAP 15 (8-16); ASPARTATE AMINO TRANSFERASE 8 U/L (10-37); BILIRUBIN,TOTAL 0.3 MG/DL (0.1-1.0); BLOOD UREA NITROGEN 94 MG/DL (7-18); BUN/CREATININE RATIO 29.6 (5.4-32.0); CALCIUM 7.7 MG/DL (8.5-10.1); CHLORIDE 102 MMOL/L (99-107); CREATININE 3.18 MG/DL (0.60-1.10); GLUCOSE 131 MG/DL (70-104); POTASSIUM 4.1 MMOL/L (3.5-5.1); SODIUM 136 MMOL/L (135-145); TOTAL CARBON DIOXIDE 18.9 MMOL/L (24-32); TOTAL PROTEIN 6.6 G/DL (6.4-8.2); eGFR 20 ML/MIN
--- NOTE | 2020-12-26 22:36 | NUR ---
I have received report from Nancy ED RN and had the opportunity to ask questions and assume patient care. Room is ready and awaiting PT arrival.
--- NOTE | 2020-12-26 23:24 | NUR ---
PT arrived to unit via gurney and was transferred over to ICU bed and placed on bedside monitor. PT is noted to be in SR-ST with HR in low 100's, BP is stable 120's/50's. O2 sat in mid to high 90's on RA. Cotter in place draining to gravity with strawberry tinged, purulent urine noted in tubing and urometer. PT has an open area to Left hip, redness noted to bilat hips, sacrum and jocelyne-area. PT has multiple scabs noted to bilat upper and lower extremities. Optifoam drgs have been placed to bilat evelia hips as well as sacrum/coccyx. PT is [place], if speaking loud enough and well as touch, PT is responsive and can communicate verbally. PT seems to be resistive and doesn't participate in care. Bed is locked and low. Call light is within reach. Will continue to monitor.
[2020-12-26 23:30] VITALS: BP 124/59
[2020-12-27] VITALS (28 sets, daily range): BP systolic 92–148; BP diastolic 51–77
[2020-12-27] MEDS: insulin Lispro (HumaLOG) vial - multi-dose SQ SCH ×3 (04:01→14:00)
[2020-12-27] MEDS: sodium bicarbonate (8.4%) inj. 150 MEQ in dextrose 5%-water 1,000 ML IV SCH (05:29)
[2020-12-27 06:04] LABS: BASOPHILS % (AUTO) 0.1 % (0-1); EOSINOPHILS # (AUTO) 0.1 X10'3 (0-0.9); EOSINOPHILS % (AUTO) 0.8 % (0-6); HEMATOCRIT 28.3 % (42.0-52.0); HEMOGLOBIN 9.9 g/dl (14.0-17.9); LYMPHOCYTES # (AUTO) 0.8 X10'3 (1.1-4.8); MEAN CORPUSCULAR HEMOGLOBIN 28.2 PG (27.0-31.0); MEAN CORPUSCULAR HGB CONC 34.8 g/dL (33.0-36.5); MEAN CORPUSCULAR VOLUME 81.1 FL (78-98); MEAN PLATELET VOLUME 7.9 FL (7.4-10.4); MONOCYTES # (AUTO) 0.7 X10'3 (0-0.9); MONOCYTES % (AUTO) 10.9 % (2-12); NEUTROPHILS # (AUTO) 4.8 X10'3 (1.8-7.7); NEUTROPHILS % (AUTO) 76.2 % (42-75); PLATELET COUNT 121 X10'3 (140-440); RED BLOOD COUNT 3.49 X10'6 (4.70-6.10); RED CELL DISTRIBUTION WIDTH 16.4 % (11.5-14.5); WHITE BLOOD COUNT 6.3 X10'3 (4.5-11.0)
[2020-12-27 06:24] LABS: ALANINE AMINOTRANSFERASE 15 U/L (12-78); ALBUMIN 2.2 G/DL (3.4-5.0); ALBUMIN/GLOBULIN RATIO 0.6 (1.1-1.5); ALKALINE PHOSPHATASE 79 IU/L (46-116); ANION GAP 10 (8-16); ASPARTATE AMINO TRANSFERASE 13 U/L (10-37); BILIRUBIN,TOTAL 0.3 MG/DL (0.1-1.0); BLOOD UREA NITROGEN 80 MG/DL (7-18); BUN/CREATININE RATIO 28.7 (5.4-32.0); CALCIUM 7.6 MG/DL (8.5-10.1); CHLORIDE 103 MMOL/L (99-107); CREATININE 2.79 MG/DL (0.60-1.10); GLUCOSE 241 MG/DL (70-104); MAGNESIUM 1.9 MG/DL (1.5-2.4); PHOSPHORUS 4.3 MG/DL (2.3-4.5); POTASSIUM 3.4 MMOL/L (3.5-5.1); SODIUM 138 MMOL/L (135-145); TOTAL CARBON DIOXIDE 25.1 MMOL/L (24-32); TOTAL PROTEIN 6.2 G/DL (6.4-8.2); eGFR 23 ML/MIN
--- NOTE | 2020-12-27 06:41 | NUR ---
Problems reprioritized. Patient report given, questions answered & plan of care reviewed with Lidia KHAN.
[2020-12-27] MEDS ORDERED: ringers solution, lacted 1,000 ML IV SCH ×2 (08:00→14:20)
[2020-12-27] MEDS ORDERED: heparin, porcine 5000 units/ml vial SQ SCH (08:00)
[2020-12-27] MEDS: piperacillin/tazo 3.375gm/50ml 50 ML IV SCH ×2 (08:12→23:08)
[2020-12-27] MEDS ORDERED: famotidine/PF 10 mg/ml inj IV ONE (08:15)
[2020-12-27 09:12] LABS: PARTIAL THROMBOPLASTIN TIME 27 SECONDS (22-32)
--- NOTE | 2020-12-27 09:33 | NUR ---
pt yells out for his mother. repeatedly asks to eat. pt informed multiple times that he will be having surgery today. pt yells out, " this is bullshit!"
[2020-12-27] MEDS ORDERED: albuterol 2.5 MG/3 ML nebule NEB PRN (10:55)
[2020-12-27] MEDS: pantoprazole 40 MG vial IV SCH (10:56)
--- NOTE | 2020-12-27 10:56 | NUR ---
md at bedside, order received for 500cc bolus
[2020-12-27] MEDS ORDERED: normal saline 1000ml 1,000 ML IV STA (10:57)
[2020-12-27] MEDS ORDERED: INDOCYANINE GREEN 25 MG/10 ML VIAL IV ONE (11:20)
--- NOTE | 2020-12-27 11:25 | NUR ---
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 Na WNL at this time w/ Glu down to 222 from admit. Pt hx living in [facility] w/ caregiver and not eating past 3-5 days only drinking water per EMR. Pt currently demanding food w/ some ALOC noted per RN today though is NPO for OR at this time. Director Case and wound care has been consulted given pt presentation per RN; per WOC RN during rounds excoriation present to sacrum/jocelyne-area but no open wounds w/ one old healing pressure area at this time. 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 MD notified. May benefit from EGG SEPARATOR BSS pending PO capabilities post-op. Will monitor for additional protein/kcal needs this admit once diet advances post-op. Rec: 1. advance diet as medically indicated to regular 2. 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 once advanced past clear liquids; ensure enlive TIDWM if MD agreeable for additional kcals/protein 4. MVI/mineral for repletion needs once PO 5. routine bowel care 6. weekly scaled wts Addendum: 12/27/20 at [address] Amended: Links added.
--- NOTE | 2020-12-27 11:32 | NUR ---
Dr. Jean-Baptiste at bedside
[2020-12-27 12:01] LABS: ALBUMIN 2.4 G/DL (3.4-5.0); ANION GAP 12 (8-16); BLOOD UREA NITROGEN 81 MG/DL (7-18); BUN/CREATININE RATIO 29.7 (5.4-32.0); CALCIUM 7.9 MG/DL (8.5-10.1); CHLORIDE 104 MMOL/L (99-107); CREATININE 2.73 MG/DL (0.60-1.10); GLUCOSE 213 MG/DL (70-104); POTASSIUM 3.6 MMOL/L (3.5-5.1); PREALBUMIN 9.6 MG/DL (19-36); SODIUM 141 MMOL/L (135-145); TOTAL CARBON DIOXIDE 25.5 MMOL/L (24-32); eGFR 24 ML/MIN
[2020-12-27 13:16] LABS: ABG BASE EXCESS -1.6 mmol/L (-2.0-2.0); ABG HCO3 23.2 mmol/L (22.0-26.0); ABG OXYGEN SATURATION 91.8 % (94-97); ABG PCO2 (T) 38.3 mmHg (35.0-48.0); ABG PO2 (T) 64.7 mmHg (75.0-100.0); ALLEN'S TEST POSITIVE; FCOHb 0.3 % (0.0-3.9); FMetHb 0.3 % (0.0-1.5); FO2Hb 91.2 % (94-97); PATIENT TEMPERATURE 36.3; TOTAL HEMOGLOBIN 10.5 G/dl (14.0-18.0)
[2020-12-27] MEDS ORDERED: LIDOcaine 1% 30ml preserv. free vial ONE (14:13)
[2020-12-27] MEDS ORDERED: BUPIVAcaine/PF 2.5 mg/ml (0.25%) 30ml vial ONE (14:13)
[2020-12-27] MEDS ORDERED: morphine 2 MG/ML inj. syringe IV PRN (14:20)
[2020-12-27] MEDS ORDERED: labetalol 20mg/4ml (5mg/ml) syringe IV PRN (14:20)
[2020-12-27] MEDS ORDERED: HYDROmorphone/PF 0.2 MG/ML SYRINGE IV PRN ×2 (14:20)
[2020-12-27] MEDS ORDERED: ondansetron/PF 4mg/2ml inj IV PRN (14:20)
[2020-12-27] MEDS ORDERED: acetaminophen 1,000mg/100ml IV 100 ML IV PRN (14:20)
[2020-12-27] MEDS ORDERED: morphine 4 MG/ML inj SYRINge IV PRN (14:20)
[2020-12-27] MEDS ORDERED: proCHLORperazine 10 MG/2 ml inj IV PRN (14:20)
[2020-12-27] MEDS ORDERED: hydrALAZINE 20mg/ml inj. IV PRN (14:20)
[2020-12-27] MEDS ORDERED: glycopyrrolate 0.2mg/ml inj ONE (14:22)
[2020-12-27] MEDS ORDERED: ePHEDrine 50MG/ML INJ. ONE (14:22)
[2020-12-27] MEDS ORDERED: neostigmine methylsulfate 1 MG/ML 10ml vial ONE (14:22)
[2020-12-27] MEDS ORDERED: sevoflurane 250ml liquid IH ONE (14:22)
[2020-12-27] MEDS ORDERED: fentaNYL/PF 50MCG/1 ML 2ML syringe ONE (14:33)
[2020-12-27] MEDS ORDERED: midazolam 2 mg/2 ml injection ONE (14:34)
[2020-12-27] MEDS ORDERED: propofol inj 20 ML IV ONE (14:35)
[2020-12-27] MEDS ORDERED: LIDOcaine 2% (20mg/ml) 5ml vial ONE (14:35)
[2020-12-27] MEDS ORDERED: rocuronium 10mg/ml inj IV ONE (15:00)
[2020-12-27] MEDS ORDERED: dexamethasone sod phosphate 4mg/ml inj. ONE (15:00)
[2020-12-27] MEDS ORDERED: ceFAZolin 1000mg inj ONE ×2 (15:00)
[2020-12-27] MEDS ORDERED: ondansetron/PF 4mg/2ml inj ONE (15:01)
--- NOTE | 2020-12-27 16:05 | NUR ---
Received from OR via SURGICAL BED , accompanied by Anesthesiologist SULEMAN and report given by Anesthesiolgist. S/P LAP MARISA, 20GA L ARM, LR @ 100 ML/HR, NON REBREATHER MASK 10L O2 99% SATURATIONS STEELE CATH URINE IS CLOUDY AND YELLOW BILATERAL SCDS DONNED IN RR, SURGICAL WOUND ACROSS LOWER ABD. BANDAGE CDI.VSS Addendum: 12/27/20 at 1629 by Justin Valenzuela RN, RN Amended: Links added.
[2020-12-27] MEDS ORDERED: HYDROcodone/acetaminophen 5mg/325mg tablet PO PRN (16:30)
--- NOTE | 2020-12-27 16:55 | NUR ---
ALL CRITERIA FOR TRANSFER TO THE FLOOR HAS BEEN ACHIEVED. REPORT GIVEN AND ALL QUESTIONS ANSWERED, VSS. BED LOW 2 RAILS UP, CALL LIGHT PRESENT AND PATIENT HOOKED UP TO ALL LINES AND VSS. PATIENTS RN PRESENT TO ACCEPT CARE. BILL DUPREE PRESENT TO ACCEPT PATIENT AT BEDSIDE. DENIES PAIN. WANTS TO EAT A STEAK. RN'S TO ASSESS. Addendum: 12/27/20 at 1716 by Justin Villalpando - BILL RN Amended: Links added.
--- NOTE | 2020-12-27 17:03 | NUR ---
Patient in room ICU 2044. I have received report from BILL Anderson and had the opportunity to ask questions and assume patient care.
--- NOTE | 2020-12-27 18:00 | NUR ---
[place] documentation: I have reviewed and agree with all interventions, assessments performed and documented by Diana KHAN.
--- NOTE | 2020-12-27 18:10 | NUR ---
Problems reprioritized. Patient report given, questions answered & plan of care reviewed with Vickie KHAN.
--- NOTE | 2020-12-27 18:18 | NUR ---
Problems reprioritized. Patient report given, questions answered & plan of care reviewed with BILL Johnston.
[2020-12-27] MEDS ORDERED: insulin glargine (Lantus) pen - multi-dose SQ SCH (21:00)
[2020-12-27] MEDS: tamsulosin 0.4mg capsule PO SCH (23:09)
[2020-12-27] MEDS: HYDROcodone/acetaminophen 10/325mg tab PO PRN (23:09)
[2020-12-28] VITALS (7 sets, daily range): BP systolic 110–141; BP diastolic 66–79
[2020-12-28] MEDS: insulin Lispro (HumaLOG) vial - multi-dose SQ SCH ×4 (02:05→19:00)
--- NOTE | 2020-12-28 06:21 | NUR ---
Problems reprioritized. Patient report given, questions answered & plan of care reviewed with BILL Lloyd.
[2020-12-28 07:03] LABS: BASOPHILS % (AUTO) 0.1 % (0-1); EOSINOPHILS % (AUTO) 0.1 % (0-6); HEMATOCRIT 26.7 % (42.0-52.0); HEMOGLOBIN 9.1 g/dl (14.0-17.9); LYMPHOCYTES # (AUTO) 0.9 X10'3 (1.1-4.8); LYMPHOCYTES % (AUTO) 16.7 % (21-51); MEAN CORPUSCULAR HEMOGLOBIN 27.7 PG (27.0-31.0); MEAN CORPUSCULAR HGB CONC 34.2 g/dL (33.0-36.5); MONOCYTES # (AUTO) 0.6 X10'3 (0-0.9); MONOCYTES % (AUTO) 11.7 % (2-12); NEUTROPHILS # (AUTO) 3.9 X10'3 (1.8-7.7); NEUTROPHILS % (AUTO) 71.4 % (42-75); PLATELET COUNT 109 X10'3 (140-440); RED CELL DISTRIBUTION WIDTH 16.6 % (11.5-14.5); WHITE BLOOD COUNT 5.5 X10'3 (4.5-11.0)
[2020-12-28 07:43] LABS: ALANINE AMINOTRANSFERASE 16 U/L (12-78); ALBUMIN/GLOBULIN RATIO 0.5 (1.1-1.5); ALKALINE PHOSPHATASE 70 IU/L (46-116); ANION GAP 12 (8-16); ASPARTATE AMINO TRANSFERASE 20 U/L (10-37); BILIRUBIN,TOTAL 0.2 MG/DL (0.1-1.0); BLOOD UREA NITROGEN 52 MG/DL (7-18); BUN/CREATININE RATIO 21.4 (5.4-32.0); CALCIUM 7.3 MG/DL (8.5-10.1); CHLORIDE 100 MMOL/L (99-107); CREATININE 2.43 MG/DL (0.60-1.10); GLUCOSE 360 MG/DL (70-104); MAGNESIUM 1.7 MG/DL (1.5-2.4); PHOSPHORUS 3.5 MG/DL (2.3-4.5); SODIUM 135 MMOL/L (135-145); TOTAL CARBON DIOXIDE 23.4 MMOL/L (24-32); TOTAL PROTEIN 5.9 G/DL (6.4-8.2); eGFR 27 ML/MIN
[2020-12-28] MEDS ORDERED: morphine 2 MG/ML inj. syringe IV PRN ×2 (09:55)
[2020-12-28] MEDS ORDERED: docusate sod 100mg capsule PO PRN (10:00)
[2020-12-28] MEDS: piperacillin/tazo 3.375gm/50ml 50 ML IV SCH ×2 (10:02→19:58)
[2020-12-28] MEDS: pantoprazole 40 MG vial IV SCH (10:02)
[2020-12-28] MEDS: lactobacillus rhamnosus 10,000 MMU CELLS/CAPSULE PO SCH ×2 (10:04→19:58)
[2020-12-28] MEDS: normal saline 1000ml 1,000 ML IV SCH ×2 (10:07→18:47)
--- NOTE | 2020-12-28 13:47 | NUR ---
Pt with A1c 12.0%, up from 7.4% January 2019 per records. Pt POD #1 s/p laparoscopic cholecystectomy. Pt would benefit from DM education once stable. Pt currently documented as A/O x 3 and resistive to care. Will continue to follow closely. Addendum: 12/28/20 at [address] Amended: Links added.
--- NOTE | 2020-12-28 18:30 | NUR ---
Patient in room PCU 3013. I have received report from Gabino KHAN/ Tasha KHAN and had the opportunity to ask questions and assume patient care.
[2020-12-28] MEDS: HYDROcodone/acetaminophen 10/325mg tab PO PRN (18:49)
[2020-12-28] MEDS: tamsulosin 0.4mg capsule PO SCH (19:58)
[2020-12-29 02:00] VITALS: BP 134/80
[2020-12-29] MEDS: normal saline 1000ml 1,000 ML IV SCH ×2 (03:31→09:27)
[2020-12-29 06:00] VITALS: BP 120/60
--- NOTE | 2020-12-29 06:20 | NUR ---
Problems reprioritized. Patient report given, questions answered & plan of care reviewed with Tasha KHAN.
--- NOTE | 2020-12-29 06:37 | NUR ---
Patient in room PCU 3013. I have received report from [facility] and had the opportunity to ask questions and assume patient care.
[2020-12-29 06:54] LABS: BASOPHILS % (AUTO) 0.3 % (0-1); EOSINOPHILS # (AUTO) 0.1 X10'3 (0-0.9); EOSINOPHILS % (AUTO) 2.2 % (0-6); HEMATOCRIT 25.9 % (42.0-52.0); HEMOGLOBIN 8.8 g/dl (14.0-17.9); LYMPHOCYTES # (AUTO) 1.3 X10'3 (1.1-4.8); LYMPHOCYTES % (AUTO) 29.8 % (21-51); MEAN CORPUSCULAR HEMOGLOBIN 28.2 PG (27.0-31.0); MEAN CORPUSCULAR VOLUME 82.8 FL (78-98); MEAN PLATELET VOLUME 7.7 FL (7.4-10.4); MONOCYTES # (AUTO) 0.4 X10'3 (0-0.9); MONOCYTES % (AUTO) 8.8 % (2-12); NEUTROPHILS # (AUTO) 2.5 X10'3 (1.8-7.7); NEUTROPHILS % (AUTO) 58.9 % (42-75); PLATELET COUNT 94 X10'3 (140-440); RED BLOOD COUNT 3.13 X10'6 (4.70-6.10); WHITE BLOOD COUNT 4.2 X10'3 (4.5-11.0)
[2020-12-29] MEDS: piperacillin/tazo 3.375gm/50ml 50 ML IV SCH (07:17)
[2020-12-29] MEDS: lactobacillus rhamnosus 10,000 MMU CELLS/CAPSULE PO SCH (07:17)
[2020-12-29] MEDS ORDERED: pantoprazole 40mg Tablet.DR PO SCH (07:30)
[2020-12-29 07:34] LABS: ALANINE AMINOTRANSFERASE 13 U/L (12-78); ALBUMIN 1.7 G/DL (3.4-5.0); ALBUMIN/GLOBULIN RATIO 0.5 (1.1-1.5); ALKALINE PHOSPHATASE 61 IU/L (46-116); ANION GAP 10 (8-16); ASPARTATE AMINO TRANSFERASE 22 U/L (10-37); BILIRUBIN,TOTAL 0.2 MG/DL (0.1-1.0); BLOOD UREA NITROGEN 31 MG/DL (7-18); BUN/CREATININE RATIO 16.1 (5.4-32.0); CALCIUM 7.2 MG/DL (8.5-10.1); CHLORIDE 105 MMOL/L (99-107); CREATININE 1.93 MG/DL (0.60-1.10); GLUCOSE 144 MG/DL (70-104); MAGNESIUM 1.4 MG/DL (1.5-2.4); POTASSIUM 3.5 MMOL/L (3.5-5.1); SODIUM 139 MMOL/L (135-145); TOTAL CARBON DIOXIDE 24.4 MMOL/L (24-32); TOTAL PROTEIN 5.3 G/DL (6.4-8.2); eGFR 35 ML/MIN
[2020-12-29] MEDS: insulin Lispro (HumaLOG) vial - multi-dose SQ SCH (09:31)
[2020-12-29] MEDS ORDERED: CIPR-259 PO (09:33)
[2020-12-29] MEDS ORDERED: PANT40TA54 PO (09:33)
[2020-12-29 11:00] VITALS: BP 128/74
--- NOTE | 2020-12-29 13:10 | NUR ---
Cotter was removed around 1100 without any complications. layout man has been called x2 with voicemail left in regards to patient being discharged today. Patient informed of discharge and is being noncompliant with info regarding his hotel and verbally abusive to RN, charge nurse aware.
[2020-12-29] MEDS ORDERED: FLUC100T40 PO ×2 (13:42→16:14)
--- NOTE | 2020-12-29 14:00 | NUR ---
Patient voided 200cc in urinal at this time.
--- NOTE | 2020-12-29 14:59 | NUR ---
Spoke with patients healthcare business analyst at this time regarding discharge. He states that he will be waiting for patient at the hotel.
== END 2020-12-29 15:15 | disposition home or self-care (01) | DRG 263 ==
LOC: ER 12:06 → ED HOLD 21:04 → ICU 2S 23:05 → PCU 3S 12-27 17:19
PROVIDERS: ADMIT Internal Medicine; ATTEND Internal Medicine
PROC: 8E0W4CZ Robotic Assisted Procedure of Trunk Region, Percutaneous Endoscopic Approach (ICD-10-PCS; 2020-12-27)
PROC: 0FT44ZZ Resection of Gallbladder, Percutaneous Endoscopic Approach (ICD-10-PCS; principal; 2020-12-27 14:22)
DX: K80.00 Calculus of gallbladder with acute cholecystitis without obstruction (principal); N17.9 Acute kidney failure, unspecified; E87.2 Acidosis; E87.1 Hypo-osmolality and hyponatremia; E87.5 Hyperkalemia; E11.65 Type 2 diabetes mellitus with hyperglycemia; Z86.73 Personal history of transient ischemic attack (TIA), and cerebral infarction without residual deficits; E78.00 Pure hypercholesterolemia, unspecified; I12.9 Hypertensive chronic kidney disease with stage 1 through stage 4 chronic kidney disease, or unspecified chronic kidney disease; J44.9 Chronic obstructive pulmonary disease, unspecified; Z87.11 Personal history of peptic ulcer disease; F17.210 Nicotine dependence, cigarettes, uncomplicated; F12.90 Cannabis use, unspecified, uncomplicated; N40.0 Benign prostatic hyperplasia without lower urinary tract symptoms; E11.22 Type 2 diabetes mellitus with diabetic chronic kidney disease; D35.01 Benign neoplasm of right adrenal gland; N13.30 Unspecified hydronephrosis; N13.4 Hydroureter; E86.1 Hypovolemia; B19.20 Unspecified viral hepatitis C without hepatic coma; N18.30 Chronic kidney disease, stage 3 unspecified; K82.1 Hydrops of gallbladder; Z20.822 Contact with and (suspected) exposure to COVID-19; L89.899 Pressure ulcer of other site, unspecified stage
CPT/HCPCS: 36415; 36600; 71045; 74176; 76775; 80048; 80053; 81001; 82803; 82948; 83036; 83605; 83690; 83735; 84100; 84134; 84145; 85018; 85025; 85610; 85730; 87040; 87077; 87088; 87635; 93005; 96374; 99291; A4215; A4618; A7000; C9113; G0378; J0690; J1100; J1815; J2001; J2250; J2270; J2405; J2543; J2704; J2710; J3010; J3490; J7030; J7120